=== PATIENT | female | born 1945 | race Caucasian/White ===

== ENCOUNTER → 2021-04-25 09:48 | Outpatient (CLI) | payer MEDICARE, BC, SELFPAY ==
--- NOTE | 2021-04-25 | DI.NM.S_ITS ---
PROCEDURE: NM RICHARD PERF SPECT R&S PHARM Rest and pharmacological stress myocardial perfusion SPECT with gated imaging and ejection fraction RADIOPHARMACEUTICAL: 12.1 mCi Tc-99m tetrafosmin IV at rest and 24.5 mCi Tc-99m tetrafosmin IV at peak effect of pharmacological stress. [id number] was performed. INDICATIONS: Personal history of pulmonary embolism SOB TECHNIQUE: Radiopharmaceutical was injected at peak stress test, and also at rest. SPECT images were obtained. SPECT myocardial perfusion images were displayed in short axis, horizontal long axis, and vertical long axis views. Gated images were reviewed using [employer] software. COMPARISON: None. CARDIAC STRESS: A pharmacologic stress test was performed under the supervision of an attending staff, using an infusion of regadenoson. Hemodynamic data: There is normal blood pressure and heart rate response to pharmacologic stress. Symptoms: The patient denied anginal chest pain. EKG: Baseline atrial fibrillation, LVH with secondary repolarization changes. Stress atrial fibrillation, no ST segment changes from baseline. FINDINGS: Raw data: There is good myocardial uptake of radiotracer. No significant motion artifacts. Gcmj-rm-dymnm ratio is 0.33 (normal is less than 0.38 for tetrafosmin tracer). Left ventricle function: Gated images demonstrate normal left ventricular wall thickening. No segmental wall motion abnormalities. No transient ischemic dilation; TID is 0.87 (normal less than 1.3). Left ventricle resting end diastolic volume is 59 mL. Left ventricle stress ejection fraction is >75% ; normal range is above 45%. Myocardial perfusion: Moderate size, mild intensity fixed anterior wall defect that is worse in the resting images but does not completely resolve in the prone images. IMPRESSION: Fixed anterior wall defect that is worse in the resting images but does not completely resolve on prone imaging. Given that wall motion is preserved in this area, the defect is most consistent with attenuation artifact. No obvious ischemia. Dictated by: Nisha Magallanes D.O. on 04/25/2021 at 16:32 Approved by: Nisha Magallanes M.D. on 04/25/2021 at 16:38
--- NOTE | 2021-04-25 | DI.US.S_ITS ---
PROCEDURE: US PERIPH VENOUS LOW EXTREM BI INDICATIONS: Short of breath; HX PE TECHNIQUE: Real-time imaging, as well as color and pulse Doppler interrogation, were performed of the deep veins of both legs from the inguinal ligament to the popliteal fossa. COMPARISON: None. FINDINGS: Right: The common femoral, femoral and popliteal veins are normally compressible, and free of intraluminal thrombus. Color and pulse Doppler demonstrate normal phasic intravascular flow. There is normal augmentation response to distal compression maneuver. Left: The common femoral, femoral and popliteal veins are normally compressible, and free of intraluminal thrombus. Color and pulse Doppler demonstrate normal phasic intravascular flow. There is normal augmentation response to distal compression maneuver. IMPRESSION: Negative for deep venous thrombosis. Dictated by: Misael Urban M.D. on 04/25/2021 at 10:24 Approved by: Misael Urban M.D. on 04/25/2021 at 10:25
== END ==
PROVIDERS: PCP Student in an Organized Health Care Education/Training Program; Referring Provider Internal Medicine Cardiovascular Disease; Visit Provider Internal Medicine Cardiovascular Disease
DX: I48.19 Other persistent atrial fibrillation (principal); R06.02 Shortness of breath; Z86.711 Personal history of pulmonary embolism
CPT/HCPCS: 78452; 93017; 93970; A9502; J2785

== ENCOUNTER 2021-06-11 18:17 | Inpatient (IN) | payer MEDICARE, BC, SELFPAY ==
[2021-06-11] VITALS (12 sets, daily range): BP systolic 73–140; BP diastolic 51–90; PULSE 86–142; RESP 16–35; TEMP 35–36; O2SAT 88–94
--- NOTE | 2021-06-11 18:47 | ED.CHESTPAIN ---
HPI - Chest Pain General Chief Complaint: Chest Pain Stated Complaint: chest pain,SOB,distended belly,extremity tremors, Time Seen by Provider: 06/11/21 18:41 Source: patient and family Mode of arrival: Wheelchair History of Present Illness HPI narrative: Patient is a 75-year-old female. History of atrial fibrillation. Is on anticoagulation. Is scheduled for an outpatient ablation after she has been on blood thinners for a month. Also has a history of pulmonary hypertension. Is here for the evaluation of chest discomfort and shortness of breath and a distended abdomen and tremors. Most of the HPI came from the patient's . It appears that most of the symptoms she presents with today been occurring/worsening over the past 24 hours. He also states she has not had much to eat or drink during this time. She is taking her medications. Patient states that she generally just does not feel well. Does have some abdominal pain otherwise cannot pinpoint any specific discomfort. There has been no recent travel. Related Data Home Medications Medication Instructions Recorded Confirmed Calcium Magnesium 06/12/21 ambrisentan 5 mg tablet 5 mg PO DAILY 06/12/21 06/12/21 atorvastatin 10 mg tablet 10 mg PO DAILY 06/12/21 06/12/21 baclofen 10 mg tablet 10 mg PO TID PRN 06/12/21 06/12/21 cyanocobalamin (vitamin B-12) 2,000 mcg PO DAILY 06/12/21 06/12/21 2,000 mcg tablet diclofenac sodium 1 % topical gel 2 g TOPICAL QID 06/12/21 06/12/21 duloxetine 20 mg capsule,delayed 20 mg PO DAILY 06/12/21 06/12/21 release esomeprazole magnesium 40 mg 40 mg PO DAILY 06/12/21 06/12/21 capsule,delayed release (Nexium) ferrous sulfate 325 mg (65 mg 325 mg PO Q OTHER DAY 06/12/21 06/12/21 iron) tablet (FeroSul) flecainide 50 mg tablet 50 mg PO BID 06/12/21 06/12/21 folic acid 1 mg tablet 5 mg PO DAILY 06/12/21 06/12/21 furosemide 20 mg tablet 20 mg PO DAILY 06/12/21 06/12/21 gabapentin 300 mg capsule 600 mg PO BID 06/12/21 06/12/21 hydrocodone 5 mg-acetaminophen 325 1 tab PO QID PRN 06/12/21 06/12/21 mg tablet hydroxychloroquine 200 mg tablet 300 mg PO DAILY 06/12/21 06/12/21 methotrexate sodium (PF) 25 mg/mL 0.8 mg SUBCUT Q7D 06/12/21 06/12/21 injection solution metoprolol succinate 25 mg 12.5 mg PO QPM 06/12/21 06/12/21 tablet,extended release 24 hr potassium chloride 10 mEq 20 meq PO BID 06/12/21 06/12/21 tablet,extended release rivaroxaban 20 mg tablet (Xarelto) 20 mg PO DAILY 06/12/21 06/12/21 tadalafil 20 mg tablet 20 mg PO DAILY 06/12/21 06/12/21 Allergies Allergy/AdvReac Type Severity Reaction Status Date / Time pseudoephedrine Allergy Verified 06/11/21 18:38 Review of Systems Review of Systems ROS Unobtainable: All systems reviewed & are unremarkable except as noted in HPI and below Constitutional Constitutional: Denies fever(s) Eyes Eyes: Denies change in vision ENT Ears, Nose, Mouth, and Throat: Denies vertigo, Denies dizziness and Denies sore throat Cardiovascular Cardiovascular: Reports as per HPI and Reports system reviewed and no additional complaints, except as documented Respiratory Respiratory: Reports as per HPI and Reports system reviewed and no additional complaints, except as documented Gastrointestinal Gastrointestinal: Reports as per HPI and Reports system reviewed and no additional complaints, except as documented Genitourinary Genitourinary: Denies dysuria Musculoskeletal Musculoskeletal: Reports system reviewed and no additional complaints, except as documented and Denies back pain Integumentary/Breasts Skin/Breast: Denies lesions and Denies rash Neurologic Neurologic: Denies vertigo, Denies dizziness and Reports tremor(s) Psychiatric Psychiatric: Reports system reviewed and no additional complaints, except as documented Endocrine Endocrine: Reports system reviewed and no additional complaints, except as documented Hematologic/Lymphatic On Anticoagulants: No Allergic/Immunologic Allergic/Immunologic: Reports system reviewed and no additional complaints, except as documented Patient History Medical History Atrial fibrillation Pulmonary hypertension Social History (Updated 06/12/21 @ 01:34 by Jordan Thomas DO) marital status: household members: spouse lives independently: Yes Exam Initial Vital Signs Initial Vital Signs: Vital Signs Temperature 96.8 F L 06/11/21 18:33 Pulse Rate 129 H 06/11/21 18:33 Respiratory Rate 34 H 06/11/21 18:33 Blood Pressure 140/90 06/11/21 18:33 Const General: ill appearing Limitations: mental status not altered [facility] Head: normal to inspection and normocephalic Eyes General: appearance normal, both eyes and all related structures Pupils: PERRL Neck Neck: normal visual inspection Chest Chest: normal inspection of the chest and No crepitus Resp Effort & Inspection: not labored, no respiratory distress and tachypneic Auscultation: clear to auscultation bilaterally Cardio Rate: tachycardic Rhythm: abnormal rhythm Pulses: radial pulses present bilaterally GI Inspection: distended Palpation: soft, No firm, No guarding and tender (Diffuse) Skin General: no rashes or lesions noted Neuro General: patient alert, patient awake, patient oriented x3 and moves all extremities Speech: speech normal Extrem General: capillary refill normal and No edema Psych Appearance: grossly normal and well kempt Scores GCS Deisy coma scale eye opening: Spontaneous [place] coma scale verbal response: Orientated [place] coma scale motor response: Obey commands Deisy coma scale total score: 15 Course Orders Ordered: ED Orders 06/11/21 18:49 XR chest 1V Stat EKG-12 Lead Stat 06/11/21 18:55 Blood Culture Stat 06/11/21 19:01 COVID19 - ADMIT (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 swab/PCR) Stat 06/11/21 19:12 Complete Blood Count AUTO DIFF Stat Comprehensive Metabolic Panel Stat Lactate (Lactic Acid) Stat Lipase Stat NT-proBNP (BNP-Adult 18+) Stat Partial Thromboplastin Time Stat Procalcitonin Stat Prothrombin Time INR Stat Troponin & CK Cardiac Panel Stat 06/11/21 19:58 CT angio abdomen pelvis Stat CT angio chest PE protocol Stat 06/11/21 22:31 US abdomen limited Stat 06/12/21 Acetaminophen Stat Ammonia (NH3) Stat Amylase Stat Hemoglobin A1C% w Est Avg Glu Stat Hepatitis Acute Panel Stat Lactate Dehydrogenase Stat Lipid Panel Stat Thyroid Stimulating Hormone Stat 06/12/21 00:07 Magnesium Stat 06/12/21 00:08 Urine Drug Screen, Rapid Stat 06/12/21 00:23 Respiratory Panel (Film Array) Stat 06/12/21 00:25 Arterial Blood Gas Stat 06/12/21 00:27 MRSA PCR Stat Sodium Chloride (Normal Saline 0.9%) 1,000 mls @ 150 mls/hr IV CONT ESA Last Admin: 06/11/21 23:22 Dose: 150 mls/hr Documented by: BRENDA Discontinued Medications Dextrose (Dextrose 50 % In Water 25 Gm/50 Ml Syringe) 25 gm IV NOW ONE Stop: 06/11/21 20:01 Last Admin: 06/11/21 19:40 Dose: 25 gm Documented by: DONALD Diltiazem HCl (Diltiazem 5 Mg/Ml Sdv) 10 mg IV NOW ONE Stop: 06/11/21 19:13 Last Admin: 06/11/21 19:20 Dose: 10 mg Documented by: DONALD Furosemide (Furosemide 100 Mg/10 Ml Vial) 60 mg IV NOW ONE Stop: 06/11/21 19:59 Last Admin: 06/11/21 20:05 Dose: 60 mg Documented by: DONALD Sodium Chloride (Normal Saline 0.9%) 1,000 mls @ 100 mls/hr IV CONT ESA Last Infusion: 06/11/21 20:44 Dose: 0 mls/hr Documented by: Admin: 06/11/21 19:20 Dose: 100 mls/hr Documented by: DONALD Sodium Chloride (Normal Saline 0.9%) 1,000 mls @ 500 mls/hr IV BOLUS ONE Stop: 06/11/21 21:38 Last Infusion: 06/11/21 21:06 Dose: 0 mls/hr Documented by: Admin: 06/11/21 20:05 Dose: 500 mls/hr Documented by: DONALD Ceftriaxone Sodium 1,000 mg/ (Sodium Chloride) 100 mls @ 200 mls/hr IV NOW ONE Stop: 06/11/21 19:57 Last Infusion: 06/11/21 20:32 Dose: 0 mls/hr Documented by: Admin: 06/11/21 20:04 Dose: 200 mls/hr Documented by: DONALD Vancomycin HCl (Vancomycin) 1,000 mg in 200 mls @ 200 mls/hr IV NOW ONE Stop: 06/11/21 20:55 Last Infusion: 06/11/21 21:30 Dose: 0 mls/hr Documented by: Admin: 06/11/21 20:04 Dose: 200 mls/hr Documented by: DONALD Vancomycin HCl 500 mg/ Sodium (Chloride) 100 mls @ 100 mls/hr IV NOW ONE Stop: 06/11/21 21:59 Last Infusion: 06/11/21 23:22 Dose: 0 mls/hr Documented by: Admin: 06/11/21 21:38 Dose: 100 mls/hr Documented by: BRENDA Sodium Chloride (Normal Saline 0.9%) 1,000 mls @ 500 mls/hr IV BOLUS ONE Stop: 06/11/21 23:18 Last Infusion: 06/11/21 23:23 Dose: 0 mls/hr Documented by: Admin: 06/11/21 21:28 Dose: 500 mls/hr Documented by: BRENDA Vancomycin HCl (Vancomycin) 1,000 mg in 200 mls @ 200 mls/hr IV NOW ONE Stop: 06/11/21 22:29 Last Admin: 06/11/21 21:37 Dose: Not Given Documented by: BRENDA Vital Signs Vital signs: Vital Signs - 8 hr 06/11/21 18:33 06/11/21 19:10 06/11/21 19:30 Temperature 96.8 F L Pulse Rate 129 H 142 H 95 H Respiratory Rate 34 H 33 H 35 H Blood Pressure 140/90 73/51 L Pulse Oximetry 88 L 06/11/21 19:35 06/11/21 20:00 06/11/21 20:07 Temperature Pulse Rate 91 H 98 H 96 H Respiratory Rate 31 H 18 19 Blood Pressure 121/64 89/65 L 86/58 L Pulse Oximetry 88 L 91 94 06/11/21 20:10 06/11/21 20:20 06/11/21 20:30 Temperature 95.0 F L Pulse Rate 99 H 93 H 90 Respiratory Rate 18 17 16 Blood Pressure 97/64 98/60 90/54 L Pulse Oximetry 91 92 94 06/11/21 21:52 06/11/21 22:56 06/11/21 23:43 Temperature Pulse Rate 95 H 86 91 H Respiratory Rate 21 21 19 Blood Pressure 88/68 L 109/68 98/59 L Pulse Oximetry 94 94 94 06/12/21 00:02 Temperature 95.5 F L Pulse Rate Respiratory Rate Blood Pressure Pulse Oximetry MDM - Chest Pain Lab Data Attestation: I reviewed the patient's lab results. Result diagrams: 06/11/21 19:12 06/11/21 19:12 Labs: Lab Results 06/11/21 06/11/21 06/11/21 Range/Units 19:01 19:12 19:12 WBC 8.9 (4.5-11.0) X10^3/uL RBC 3.81 L (4.0-5.2) X10^6/uL Hgb 10.0 L (12.0-16.0) g/dL Hct 32.2 L (36-46) % MCV 84.6 (80-100) fL MCH 26.2 (26-34) PG MCHC 30.9 (30-36) % RDW 21.6 H (11.6-14.8) % Plt Count 345 (150-400) X10^3/uL Neut % (Auto) 74.4 (50-75) % Lymph % (Auto) 18.7 L (25-40) % [place] % (Auto) 6.4 (3-14) % Eos % (Auto) 0.2 L (2-4) % Baso % (Auto) 0.3 (0-2) % Neut # (Auto) 6600 (1646-2685) /uL Lymph # (Auto) 1700 (4658-7315) /uL [place] # (Auto) 600 (0-900) /uL Eos # (Auto) 0 (0-450) /uL Baso # (Auto) 0 (0-100) /uL RBC Morphology See below Dimorphic RBCs Present Polychromasia 2+ H Hypochromasia 1+ H Poikilocytosis 1+ H Microcytosis 1+ H Macrocytosis 1+ H PT (10.1-12.7) SECONDS INR (0.9-1.3) APTT 46 H (26.4-36.2) SECONDS Sodium (137-145) mmol/L Potassium (3.4-5.1) mmol/L Chloride (98-107) mmol/L Carbon Dioxide (22-32) mmol/L BUN (7-17) mg/dL Creatinine (0.52-1.04) mg/dL Estimated GFR (>60) mL/min BUN/Creatinine Ratio (6-22) Glucose (80-110) mg/dL Hemoglobin A1c (4.0-6.0) % Lactate (0.7-2.1) mmol/L Calcium (8.4-10.2) mg/dL Magnesium (1.6-2.3) mg/dL Total Bilirubin (0.2-1.3) mg/dL AST (14-36) IU/L ALT (<35) IU/L Alkaline Phosphatase (38-126) U/L Ammonia (9-30) umol/L Lactate Dehydrogenase (313-618) U/L Total Creatine Kinase (30-135) U/L CK-MB (CK-2) CK-MB (CK-2) Rel Index Troponin I (0.01-0.034) ng/mL NT-Pro-B Natriuret Pep (<125) pg/mL Total Protein (6.3-8.2) g/dL Albumin (3.5-5.0) g/dL Globulin (1.7-4.1) g/dL Albumin/Globulin Ratio (1.0-2.8) Triglycerides (35-150) mg/dL Cholesterol (140-199) mg/dL LDL Cholesterol, Calc (<100) mg/dL HDL Cholesterol (40-60) mg/dL Amylase (30-110) U/L Lipase (23-300) U/L Procalcitonin (<0.5) ng/mL Acetaminophen (10-30) ug/mL SARS-CoV-2 (PCR) Negative (Negative) 06/11/21 06/11/21 06/11/21 Range/Units 19:12 19:12 19:12 WBC (4.5-11.0) X10^3/uL RBC (4.0-5.2) X10^6/uL Hgb (12.0-16.0) g/dL Hct (36-46) % MCV (80-100) fL MCH (26-34) PG MCHC (30-36) % RDW (11.6-14.8) % Plt Count (150-400) X10^3/uL Neut % (Auto) (50-75) % Lymph % (Auto) (25-40) % [place] % (Auto) (3-14) % Eos % (Auto) (2-4) % Baso % (Auto) (0-2) % Neut # (Auto) (9301-7929) /uL Lymph # (Auto) (3411-1359) /uL [place] # (Auto) (0-900) /uL Eos # (Auto) (0-450) /uL Baso # (Auto) (0-100) /uL RBC Morphology Dimorphic RBCs Polychromasia Hypochromasia Poikilocytosis Microcytosis Macrocytosis PT 35.4 H (10.1-12.7) SECONDS INR 3.1 H (0.9-1.3) APTT (26.4-36.2) SECONDS Sodium 139 (137-145) mmol/L Potassium 4.6 (3.4-5.1) mmol/L Chloride 98 (98-107) mmol/L Carbon Dioxide 9 L* (22-32) mmol/L BUN 20 H (7-17) mg/dL Creatinine 1.09 H (0.52-1.04) mg/dL Estimated GFR 49.1 L (>60) mL/min BUN/Creatinine Ratio 18.3 (6-22) Glucose < 20 L* (80-110) mg/dL Hemoglobin A1c (4.0-6.0) % Lactate 14.3 H* (0.7-2.1) mmol/L Calcium 10.2 (8.4-10.2) mg/dL Magnesium (1.6-2.3) mg/dL Total Bilirubin 1.5 H (0.2-1.3) mg/dL AST 132 H (14-36) IU/L ALT 52 H (<35) IU/L Alkaline Phosphatase 169 H (38-126) U/L Ammonia (9-30) umol/L Lactate Dehydrogenase (313-618) U/L Total Creatine Kinase (30-135) U/L CK-MB (CK-2) CK-MB (CK-2) Rel Index Troponin I (0.01-0.034) ng/mL NT-Pro-B Natriuret Pep 00183 H (<125) pg/mL Total Protein 8.1 (6.3-8.2) g/dL Albumin 4.7 (3.5-5.0) g/dL Globulin 3.4 (1.7-4.1) g/dL Albumin/Globulin Ratio 1.4 (1.0-2.8) Triglycerides (35-150) mg/dL Cholesterol (140-199) mg/dL LDL Cholesterol, Calc (<100) mg/dL HDL Cholesterol (40-60) mg/dL Amylase (30-110) U/L Lipase 44 (23-300) U/L Procalcitonin (<0.5) ng/mL Acetaminophen (10-30) ug/mL SARS-CoV-2 (PCR) (Negative) 06/11/21 06/11/21 06/11/21 Range/Units 19:12 19:12 19:12 WBC (4.5-11.0) X10^3/uL RBC (4.0-5.2) X10^6/uL Hgb (12.0-16.0) g/dL Hct (36-46) % MCV (80-100) fL MCH (26-34) PG MCHC (30-36) % RDW (11.6-14.8) % Plt Count (150-400) X10^3/uL Neut % (Auto) (50-75) % Lymph % (Auto) (25-40) % [place] % (Auto) (3-14) % Eos % (Auto) (2-4) % Baso % (Auto) (0-2) % Neut # (Auto) (0318-2618) /uL Lymph # (Auto) (6893-7832) /uL [place] # (Auto) (0-900) /uL Eos # (Auto) (0-450) /uL Baso # (Auto) (0-100) /uL RBC Morphology Dimorphic RBCs Polychromasia Hypochromasia Poikilocytosis Microcytosis Macrocytosis PT (10.1-12.7) SECONDS INR (0.9-1.3) APTT (26.4-36.2) SECONDS Sodium (137-145) mmol/L Potassium (3.4-5.1) mmol/L Chloride (98-107) mmol/L Carbon Dioxide (22-32) mmol/L BUN (7-17) mg/dL Creatinine (0.52-1.04) mg/dL Estimated GFR (>60) mL/min BUN/Creatinine Ratio (6-22) Glucose (80-110) mg/dL Hemoglobin A1c 4.9 (4.0-6.0) % Lactate (0.7-2.1) mmol/L Calcium (8.4-10.2) mg/dL Magnesium 2.1 (1.6-2.3) mg/dL Total Bilirubin (0.2-1.3) mg/dL AST (14-36) IU/L ALT (<35) IU/L Alkaline Phosphatase (38-126) U/L Ammonia (9-30) umol/L Lactate Dehydrogenase (313-618) U/L Total Creatine Kinase 98 (30-135) U/L CK-MB (CK-2) TNP CK-MB (CK-2) Rel Index TNP Troponin I 0.021 (0.01-0.034) ng/mL NT-Pro-B Natriuret Pep (<125) pg/mL Total Protein (6.3-8.2) g/dL Albumin (3.5-5.0) g/dL Globulin (1.7-4.1) g/dL Albumin/Globulin Ratio (1.0-2.8) Triglycerides (35-150) mg/dL Cholesterol (140-199) mg/dL LDL Cholesterol, Calc (<100) mg/dL HDL Cholesterol (40-60) mg/dL Amylase (30-110) U/L Lipase (23-300) U/L Procalcitonin 0.31 (<0.5) ng/mL Acetaminophen (10-30) ug/mL SARS-CoV-2 (PCR) (Negative) 06/11/21 06/11/21 06/12/21 Range/Units 19:12 21:47 00:53 WBC (4.5-11.0) X10^3/uL RBC (4.0-5.2) X10^6/uL Hgb (12.0-16.0) g/dL Hct (36-46) % MCV (80-100) fL MCH (26-34) PG MCHC (30-36) % RDW (11.6-14.8) % Plt Count (150-400) X10^3/uL Neut % (Auto) (50-75) % Lymph % (Auto) (25-40) % [place] % (Auto) (3-14) % Eos % (Auto) (2-4) % Baso % (Auto) (0-2) % Neut # (Auto) (0730-3874) /uL Lymph # (Auto) (0858-8948) /uL [place] # (Auto) (0-900) /uL Eos # (Auto) (0-450) /uL Baso # (Auto) (0-100) /uL RBC Morphology Dimorphic RBCs Polychromasia Hypochromasia Poikilocytosis Microcytosis Macrocytosis PT (10.1-12.7) SECONDS INR (0.9-1.3) APTT (26.4-36.2) SECONDS Sodium (137-145) mmol/L Potassium (3.4-5.1) mmol/L Chloride (98-107) mmol/L Carbon Dioxide (22-32) mmol/L BUN (7-17) mg/dL Creatinine (0.52-1.04) mg/dL Estimated GFR (>60) mL/min BUN/Creatinine Ratio (6-22) Glucose (80-110) mg/dL Hemoglobin A1c (4.0-6.0) % Lactate 11.7 H* (0.7-2.1) mmol/L Calcium (8.4-10.2) mg/dL Magnesium (1.6-2.3) mg/dL Total Bilirubin (0.2-1.3) mg/dL AST (14-36) IU/L ALT (<35) IU/L Alkaline Phosphatase (38-126) U/L Ammonia < 9 L (9-30) umol/L Lactate Dehydrogenase (313-618) U/L Total Creatine Kinase (30-135) U/L CK-MB (CK-2) CK-MB (CK-2) Rel Index Troponin I (0.01-0.034) ng/mL NT-Pro-B Natriuret Pep (<125) pg/mL Total Protein (6.3-8.2) g/dL Albumin (3.5-5.0) g/dL Globulin (1.7-4.1) g/dL Albumin/Globulin Ratio (1.0-2.8) Triglycerides (35-150) mg/dL Cholesterol (140-199) mg/dL LDL Cholesterol, Calc (<100) mg/dL HDL Cholesterol (40-60) mg/dL Amylase (30-110) U/L Lipase (23-300) U/L Procalcitonin (<0.5) ng/mL Acetaminophen < 10 L (10-30) ug/mL SARS-CoV-2 (PCR) (Negative) 06/12/21 Range/Units 00:53 WBC (4.5-11.0) X10^3/uL RBC (4.0-5.2) X10^6/uL Hgb (12.0-16.0) g/dL Hct (36-46) % MCV (80-100) fL MCH (26-34) PG MCHC (30-36) % RDW (11.6-14.8) % Plt Count (150-400) X10^3/uL Neut % (Auto) (50-75) % Lymph % (Auto) (25-40) % [place] % (Auto) (3-14) % Eos % (Auto) (2-4) % Baso % (Auto) (0-2) % Neut # (Auto) (4042-8397) /uL Lymph # (Auto) (0989-7701) /uL [place] # (Auto) (0-900) /uL Eos # (Auto) (0-450) /uL Baso # (Auto) (0-100) /uL RBC Morphology Dimorphic RBCs Polychromasia Hypochromasia Poikilocytosis Microcytosis Macrocytosis PT (10.1-12.7) SECONDS INR (0.9-1.3) APTT (26.4-36.2) SECONDS Sodium (137-145) mmol/L Potassium (3.4-5.1) mmol/L Chloride (98-107) mmol/L Carbon Dioxide (22-32) mmol/L BUN (7-17) mg/dL Creatinine (0.52-1.04) mg/dL Estimated GFR (>60) mL/min BUN/Creatinine Ratio (6-22) Glucose (80-110) mg/dL Hemoglobin A1c (4.0-6.0) % Lactate (0.7-2.1) mmol/L Calcium (8.4-10.2) mg/dL Magnesium (1.6-2.3) mg/dL Total Bilirubin (0.2-1.3) mg/dL AST (14-36) IU/L ALT (<35) IU/L Alkaline Phosphatase (38-126) U/L Ammonia (9-30) umol/L Lactate Dehydrogenase 3018 H (313-618) U/L Total Creatine Kinase (30-135) U/L CK-MB (CK-2) CK-MB (CK-2) Rel Index Troponin I (0.01-0.034) ng/mL NT-Pro-B Natriuret Pep (<125) pg/mL Total Protein (6.3-8.2) g/dL Albumin (3.5-5.0) g/dL Globulin (1.7-4.1) g/dL Albumin/Globulin Ratio (1.0-2.8) Triglycerides 35 (35-150) mg/dL Cholesterol 101 L (140-199) mg/dL LDL Cholesterol, Calc 44 (<100) mg/dL HDL Cholesterol 50 (40-60) mg/dL Amylase 90 (30-110) U/L Lipase (23-300) U/L Procalcitonin (<0.5) ng/mL Acetaminophen (10-30) ug/mL SARS-CoV-2 (PCR) (Negative) Point of Care Testing Glucose POC 141 Urine Dip Bedside Urine Glucose Negative Bedside Urine Bilirubin - Negative Bedside Urine Ketone - Negative Urine Specific [place] 1.025 Bedside Urine Occult Blood +/- Bedside Urine pH 6.0 Bedside Urine Protein + 30 Bedside Urine Urobilinogen - Negative Bedside Urine Nitrite - Negative Bedside Urine Leukocytes - Negative Esterase Imaging Data Chest x-ray: Radiologist's Impression: [address] [address] XRay Report Signed Patient: Glenda Villegas MR#: [id number] : 1945 Acct:[id number] Age/Sex: 75 / F Date of Service: 06/11/21 Loc: ED Accession Number: [id number] ?? Procedure: XR chest 1V Ordering Provider: Jordan Thomas D.O. PROCEDURE:? XR CHEST 1V ? INDICATIONS:? CHEST PAIN SHORTNESS OF BREATH EXTREMITY TREMORS ? TECHNIQUE:? One view of the chest was acquired.? ? COMPARISON:? [facility], CR, XR CHEST 1 VIEW, 04/04/2021, 8:13. ? FINDINGS:? ? Surgical changes and devices:? None.? ? Lungs and pleura:? Increased pulmonary vascularity consistent with pulmonary edema.? Small pleural effusions are present bilaterally.? Bibasilar opacities are most likely atelectasis.? No pneumothorax.? ? Mediastinum:? Mediastinal contours appear normal.? Heart size is mildly increased.? ? Bones and chest wall:? No suspicious bony lesions.? Overlying soft tissues appear unremarkable.? ? IMPRESSION:? Congestive heart failure. ? Secondary to congestive heart failure Dictated by: Ruth Tyson M.D. on 06/11/2021 at 19:05 ? ? Approved by: Ruth Tyson M.D. on 06/11/2021 at 19:05?? CT scan - abdomen/pelvis: Radiologist's Impression: [address] [address] [address] Scan Report Signed Patient: Glenda Villegas MR#: [id number] : 1945 Acct:[id number] Age/Sex: 75 / F Date of Service: 06/11/21 Loc: ED Accession Number: [id number] ?? Procedure: CT angio abdomen pelvis Ordering Provider: Jordan Thomas D.O. PROCEDURE:? CT ANGIO ABDOMEN PELVIS ? INDICATIONS:? eval for ischemic bowel ? TECHNIQUE:? After the administration of intravenous contrast, 2.5 mm sections acquired from the diaphragm to the iliac crests.? 10 mm maximum intensity projection (MIP) coronal and sagittal reformats were then performed.? For radiation dose reduction, the following was used:? automated exposure control.? ? COMPARISON:? [facility], CT, CT ANGIO CHEST PE PROTOCOL, 06/11/2021, 20:12. ? FINDINGS: ? Image quality:? Excellent.? ? Extravascular tissues:? There are small pleural effusions bilaterally, right greater than left.? Bibasilar consolidation or atelectasis.? Esophagus is distended and filled with fluid, likely secondary to gastroesophageal reflux.? Small hiatal hernia. ? Liver is normal in size and and demonstrates nodular contour suggesting cirrhosis.? Gallbladder is contracted.? There is a small amount of pericholecystic fluid.? Biliary system is non dilated.? Pancreas enhances normally.? Spleen is normal in size and enhancement.? Mild adrenal nodularity bilaterally.? Kidneys are normal in size and enhancement, without hydronephrosis.? ? There is diffuse small bowel wall thickening.? No CT findings to suggest small bowel obstruction.? Moderate amount of stool in colon.? Appendix is normal. ? There is a small amount of free fluid.? No free air.? ? No retroperitoneal or mesenteric adenopathy.? No ventral hernias.? ? No suspicious bony abnormalities.? No vertebral body compression fractures.? Scoliosis and degenerative changes in thoracic and lumbar spine. ? Diffuse body wall edema consistent with anasarca. ? Abdominal aorta:? Abdominal aorta is normal in caliber.? Mild distal abdominal aortic calcification. ? Mesenteric arteries:? The celiac trunk, superior mesenteric artery, and inferior mesenteric artery are patent without high-grade stenosis.? ? Renal arteries:? Renal arteries are patent without significant stenosis.? ? IMPRESSION:? ? 1. Mild atherosclerosis of abdominal aorta. 2. Patent celiac trunk, superior and inferior mesenteric arteries without significant stenosis.? 3. Diffuse small bowel wall thickening, which may be secondary to infectious etiology or inflammatory bowel disease.? Ischemia is felt less likely.? Recommend clinical correlation. 4. A small amount of free fluid is present. 5. Normal appendix. 6. Nodular contour of liver suggesting cirrhosis. 7. Contracted gallbladder.? If there is clinical suspicion for acute cholecystitis, gallbladder ultrasound or HIDA scan may be considered. 8.? Please see CT chest angiogram report for findings in thorax. ? Dictated by: Ruth Tyson M.D. on 06/11/2021 at 22:10 ? ? Approved by: Ruth Tyson M.D. on 06/11/2021 at 22:22?? CT scan - chest: Radiologist's Impression: [place] [address] CT Scan Report Signed Patient: Glenda Villegas MR#: [id number] : 1945 Acct:[id number] Age/Sex: 75 / F Date of Service: 06/11/21 Loc: ED Accession Number: [id number] ?? Procedure: CT angio chest PE protocol Ordering Provider: Jordan Thomas D.O. PROCEDURE:? CT ANGIO CHEST PE PROTOCOL ? INDICATIONS:? Chest pain, shortness of breath, tachycardia ? TECHNIQUE:? After the administration of intravenous contrast, 2 mm thick sections acquired from the pulmonary apices to the posterior costophrenic angles.? 3-dimensional maximum intensity projection (MIP) coronal and sagittal reformats were then acquired through the thorax.? For radiation dose reduction, the following was used:? automated exposure control, adjustment of mA and/or kV according to patient size.? ? COMPARISON:? [facility], CT, CT ANGIO CHEST PE, 12/16/2020, 12:09.? [facility], CR, XR CHEST 1V, 06/11/2021, 18:51. ? FINDINGS:? Image quality:? Excellent.? ? Pulmonary arteries:? Pulmonary outflow tract is enlarged measuring 4 cm in diameter.? There are no intraluminal filling defects to suggest central pulmonary embolism.? ? Lungs and pleura:? Diffuse interstitial prominence with septal thickening suspicious for pulmonary edema.? Poei-gn-uhitkwry emphysema.? There are small pleural effusions bilaterally, right greater than left.? Bibasilar consolidations or atelectasis No pneumothorax.? Central and peripheral airways are patent.? ? Mediastinum:? Heart size is moderately increased, with.? out pericardial effusion.? Severe coronary artery calcification.? There is a 1.3 x 1.7 cm precarinal lymph node and a 1.4 cm subcarinal lymph node.? Enlarged right hilar lymph node measures 1.7 cm. Thoracic aorta is normal in caliber and enhancement.? The esophagus is distended and fluid filled with an air-fluid level.? Small hiatal hernia.? ? Bones and chest wall:? No suspicious bony lesions.? Ribs and thoracic spine appear intact throughout.? Thyroid gland is normal.? No axillary or supraclavicular adenopathy.? ? Abdomen:? A 1.4 cm para-aortic lymph node is seen in the upper abdomen.? There is contrast reflux into the hepatic vein, compatible with right heart strain.? ? IMPRESSION:? ? 1. No evidence for acute pulmonary embolism. 2. Enlarged pulmonary outflow tract, consistent with pulmonary hypertension.? This finding could be secondary to chronic PE.? Contrast reflux into the hepatic vein, compatible with right heart strain from pulmonary hypertension. 3. Moderate cardiomegaly.? There is diffuse interstitial prominence with bilateral septal thickening.? Small pleural effusions are present.? The findings are suggestive of congestive heart failure. 4. Bibasilar consolidations or atelectasis.? Cannot rule out superimposed lower lobe aspiration or pneumonia. 5. Fluid-filled distended distal esophagus likely secondary to severe gastroesophageal reflux. 6. There is mediastinal and right hilar lymphadenopathy.? This finding is nonspecific and may be secondary to infectious, inflammatory or neoplastic etiology.? Recommend clinical correlation and follow up.? 7. Severe coronary artery calcification. ? ? ? Dictated by: Ruth Tyson M.D. on 06/11/2021 at 21:25 ? ? Approved by: Ruth Tyson M.D. on 06/11/2021 at 21:37?? US - abdomen: Radiologist's Impression: [place] [address] Ultrasound Report Signed Patient: Glenda Villegas MR#: [id number] : 1945 Acct:[id number] Age/Sex: 75 / F Date of Service: 06/11/21 Loc: ED Accession Number: [id number] ?? Procedure: US abdomen limited Ordering Provider: Jordan Thomas D.O. PROCEDURE: US ABDOMEN LIMITED ? INDICATIONS:? RUQ PAIN ? TECHNIQUE:? Real-time focused scanning was performed of the abdomen, with image documentation.? ? COMPARISON:? [facility], CT, CT ANGIO ABDOMEN PELVIS, 06/11/2021, 20:12. ? FINDINGS:? Nodular hepatic contour with coarsened hepatic echogenicity, findings which are consistent with cirrhosis and were present on a comparison CT of the abdomen.? No focal hepatic mass.? There is intrahepatic biliary ductal dilatation which was present on comparison CT is well.? The common duct is normal in caliber measuring approximately 6 mm at the julia hepatis.? Normally distended gallbladder without wall thickening or pericholecystic fluid.? No sludge or gallstone demonstrated.? The parts identification technician reports a negative sonographic Hankins's sign.? Visualized portions of the pancreas and right kidney are normal. ? IMPRESSION:? ? Mild intrahepatic biliary ductal dilatation which is not significantly changed from a CT examination performed 06/11/2021.? This is of uncertain clinical significance. ? Findings of cirrhosis with small volume perihepatic ascites. ? No findings of cholelithiasis or cholecystitis. ? ? Dictated by: Alf Valverde M.D. on 06/11/2021 at 23:19 ? ? Approved by: lAf Valverde M.D. on 06/11/2021 at 23:21 ECG Data Attestation: I personally reviewed and interpreted this ECG as follows: Prior ECG tracings: not available for review Interpretation: Atrial fibrillation Ventricular rate 123 Right bundle branch block QRS 130 milliseconds QTC [address] T wave changes MDM Narrative Medical decision making narrative: Upon arrival patient was ill appearing. Was hypertensive. Did have tachycardia and was in AFib. Has not been on anticoagulation for the past month. Was given 1 dose of Cardizem which improved her heart rate however did cause her to decrease her blood pressure. Patient was also hypoxic. This improved with oxygen by nasal cannula. Chest x-ray and elevated BNP concerning for fluid overload. Was given Lasix. Patient also hypoglycemic. This is surprising given the fact that upon arrival she was able to follow commands and answer questions. She was given 1 amp of D50 in afterwards blood sugar remained greater than 100. Patient was also hypothermic. Was placed under a warming blanket. Did have a distended abdomen and diffuse abdominal tenderness. CT scan of her chest shows no signs of pulmonary embolism. Does show findings consistent with her known pulmonary hypertension. CT of her abdomen does not show any signs of ischemic bowel. No other acute surgical abnormality however there was some concern about a potential gallbladder etiology. Right upper quadrant ultrasound was obtained which did not show any acute abnormality despite the elevation in her LFTs. Patient did have a significantly elevated lactate. Antibiotics were administered for broad coverage although I did not have a specific source of an infection. After the correction of her temperature and her blood sugar she seem to improve. Patient's blood pressure was systolic in 80s to 90s over diastolic 50s to 60s. Her mean arterial pressures maintained in the mid 60s. Patient's states that her normal blood pressures are 90s over 60s. She was fluid resuscitated. Blood pressure improved afterwards. Discussed the case with SHARMILA Bray the [facility] provider. She discussed the case with tele ICU. They recommended I contacted General surgery to discuss the case. I did discuss the case with Dr. Crawford on-call with General surgery who stated that there was no emergent surgical condition. This specific discussion was about ischemic bowel. Dr. Crawford stated that the patient was not a surgical candidate at baseline. I did discuss code status with the patient's . He stated that several years ago they did make advanced directives but he is unsure as to what they said. The patient will be treated is full code. I did discuss the need for admission with the patient's . He expressed understanding agreement. Critical Care Time Critical Care Time Critical Care Time: Yes Total Critical Care Time: 45 Attestation: The high probability of a clinically significant, sudden or life threatening deterioration of the cardiovascular, respiratory, endocrine, GI system(s) required my full and direct attention, intervention and personal management. The aggregate critical care time was 45 minutes. This time is in addition to time spent performing reported procedures but includes the following: [x] Data Review and interpretation [x] Patient assessment and monitoring of vital signs [x] Documentation [x] Medication orders and management Discharge Plan Departure Patient Disposition: Admitted As Inpatient Clinical Impression: Hypoglycemia, Hypothermia, Atrial fibrillation with RVR, Hypoxia, Acidosis, lactic Admit Date/Time: 06/12/21 00:59 Admit Provider: Laure Bray
--- NOTE | 2021-06-11 18:49 | DI.RAD.S_ITS ---
PROCEDURE: XR CHEST 1V INDICATIONS: CHEST PAIN SHORTNESS OF BREATH EXTREMITY TREMORS TECHNIQUE: One view of the chest was acquired. COMPARISON: [facility], CR, XR CHEST 1 VIEW, 04/04/2021, 8:13. FINDINGS: Surgical changes and devices: None. Lungs and pleura: Increased pulmonary vascularity consistent with pulmonary edema. Small pleural effusions are present bilaterally. Bibasilar opacities are most likely atelectasis. No pneumothorax. Mediastinum: Mediastinal contours appear normal. Heart size is mildly increased. Bones and chest wall: No suspicious bony lesions. Overlying soft tissues appear unremarkable. IMPRESSION: Congestive heart failure. Secondary to congestive heart failure Dictated by: Ruth Tyson M.D. on 06/11/2021 at 19:05 Approved by: Ruth Tyson M.D. on 06/11/2021 at 19:05
--- NOTE | 2021-06-11 19:17 | PC.NURSE ---
Pt has Raynauds and it is very difficult to have a consistent O2 sat
[2021-06-11] MEDS: dilTIAZem 5 MG/ML SDV 10 MG IV (19:20)
[2021-06-11] MEDS: SODIUM CHLORIDE 0.9% 1,000 ML 100 ML IV (19:20)
[2021-06-11 19:31] LABS: PTT Partial Thromboplastin Tim 46 SECONDS (26.4-36.2)
[2021-06-11 19:37] LABS: Albumin 4.7 g/dL (3.5-5.0); Albumin Globulin Ratio 1.4 (1.0-2.8); Alkaline Phosphatase 169 U/L (38-126); Aspartate Aminotransferase 132 IU/L (14-36); BUN Creatinine Ratio 18.3 (6-22); Bilirubin Total 1.5 mg/dL (0.2-1.3); Blood Urea Nitrogen 20 mg/dL (7-17); Calcium 10.2 mg/dL (8.4-10.2); Chloride 98 mmol/L (98-107); Creatine Kinase 98 U/L (30-135); Estimated Glomerular Filt Rate 49.1 mL/min (>60); Globulin 3.4 g/dL (1.7-4.1); HEMOLYSIS < 15 (0-50); Lipase 44 U/L (23-300); Potassium 4.6 mmol/L (3.4-5.1); Sodium 139 mmol/L (137-145); Total Protein 8.1 g/dL (6.3-8.2)
[2021-06-11] MEDS: DEXTROSE 50 % IN WATER 25 GM/50 ML SYRINGE IV (19:40)
[2021-06-11 19:43] LABS: Alanine Aminotransferase 52 IU/L (<35)
[2021-06-11 19:46] LABS: NT-proBNP (BNP-Adult 18+) 22200 pg/mL (<125)
[2021-06-11 19:49] LABS: Troponin I 0.021 ng/mL (0.01-0.034)
[2021-06-11 19:52] LABS: Lactate (Lactic Acid) 14.3 mmol/L (0.7-2.1)
[2021-06-11 19:53] LABS: Carbon Dioxide 9 mmol/L (22-32); Glucose < 20 mg/dL (80-110)
[2021-06-11 19:54] LABS: Procalcitonin 0.31 ng/mL (<0.5)
[2021-06-11 19:57] LABS: Add Manual Diff / Slide Review NO; Basophils Absolute Auto 0 /uL (0-100); Basophils Percent Auto 0.3 % (0-2); Eosinophils Absolute Auto 0 /uL (0-450); Eosinophils Percent Auto 0.2 % (2-4); Hematocrit 32.2 % (36-46); Lymphocytes Absolute Auto 1700 /uL (1100-4500); Lymphocytes Percent Auto 18.7 % (25-40); Mean Corpuscular HGB Conc 30.9 % (30-36); Mean Corpuscular Hemoglobin 26.2 PG (26-34); Mean Corpuscular Volume 84.6 fL (80-100); Monocytes Absolute Auto 600 /uL (0-900); Monocytes Percent Auto 6.4 % (3-14); Neutrophils Absolute Auto 6600 /uL (1500-7000); Neutrophils Percent Auto 74.4 % (50-75); Platelet Count 345 X10^3/uL (150-400); Red Blood Cell Count 3.81 X10^6/uL (4.0-5.2); Red Cell Distribution Width 21.6 % (11.6-14.8); White Blood Cell Count 8.9 X10^3/uL (4.5-11.0)
[2021-06-11 19:58] LABS: Poikilocytosis 1+; Polychromasia 2+
--- NOTE | 2021-06-11 19:58 | DI.CT.S_ITS ---
PROCEDURE: CT ANGIO CHEST PE PROTOCOL INDICATIONS: Chest pain, shortness of breath, tachycardia TECHNIQUE: After the administration of intravenous contrast, 2 mm thick sections acquired from the pulmonary apices to the posterior costophrenic angles. 3-dimensional maximum intensity projection (MIP) coronal and sagittal reformats were then acquired through the thorax. For radiation dose reduction, the following was used: automated exposure control, adjustment of mA and/or kV according to patient size. COMPARISON: , CT, CT ANGIO CHEST PE, 12/16/2020, 12:09. [facility], CR, XR CHEST 1V, 06/11/2021, 18:51. FINDINGS: Image quality: Excellent. Pulmonary arteries: Pulmonary outflow tract is enlarged measuring 4 cm in diameter. There are no intraluminal filling defects to suggest central pulmonary embolism. Lungs and pleura: Diffuse interstitial prominence with septal thickening suspicious for pulmonary edema. [id number] emphysema. There are small pleural effusions bilaterally, right greater than left. Bibasilar consolidations or atelectasis No pneumothorax. Central and peripheral airways are patent. Mediastinum: Heart size is moderately increased, with. out pericardial effusion. Severe coronary artery calcification. There is a 1.3 x 1.7 cm precarinal lymph node and a 1.4 cm subcarinal lymph node. Enlarged right hilar lymph node measures 1.7 cm. Thoracic aorta is normal in caliber and enhancement. The esophagus is distended and fluid filled with an air-fluid level. Small hiatal hernia. Bones and chest wall: No suspicious bony lesions. Ribs and thoracic spine appear intact throughout. Thyroid gland is normal. No axillary or supraclavicular adenopathy. Abdomen: A 1.4 cm para-aortic lymph node is seen in the upper abdomen. There is contrast reflux into the hepatic vein, compatible with right heart strain. IMPRESSION: 1. No evidence for acute pulmonary embolism. 2. Enlarged pulmonary outflow tract, consistent with pulmonary hypertension. This finding could be secondary to chronic PE. Contrast reflux into the hepatic vein, compatible with right heart strain from pulmonary hypertension. 3. Moderate cardiomegaly. There is diffuse interstitial prominence with bilateral septal thickening. Small pleural effusions are present. The findings are suggestive of congestive heart failure. 4. Bibasilar consolidations or atelectasis. Cannot rule out superimposed lower lobe aspiration or pneumonia. 5. Fluid-filled distended distal esophagus likely secondary to severe gastroesophageal reflux. 6. There is mediastinal and right hilar lymphadenopathy. This finding is nonspecific and may be secondary to infectious, inflammatory or neoplastic etiology. Recommend clinical correlation and follow up. 7. Severe coronary artery calcification. Dictated by: Ruth Tyson M.D. on 06/11/2021 at 21:25 Approved by: Ruth Tyson M.D. on 06/11/2021 at 21:37
--- NOTE | 2021-06-11 19:58 | DI.CT.S_ITS ---
PROCEDURE: CT ANGIO ABDOMEN PELVIS INDICATIONS: eval for ischemic bowel TECHNIQUE: After the administration of intravenous contrast, 2.5 mm sections acquired from the diaphragm to the iliac crests. 10 mm maximum intensity projection (MIP) coronal and sagittal reformats were then performed. For radiation dose reduction, the following was used: automated exposure control. COMPARISON: [facility], CT, CT ANGIO CHEST PE PROTOCOL, 06/11/2021, 20:12. FINDINGS: Image quality: Excellent. Extravascular tissues: There are small pleural effusions bilaterally, right greater than left. Bibasilar consolidation or atelectasis. Esophagus is distended and filled with fluid, likely secondary to gastroesophageal reflux. Small hiatal hernia. Liver is normal in size and and demonstrates nodular contour suggesting cirrhosis. Gallbladder is contracted. There is a small amount of pericholecystic fluid. Biliary system is non dilated. Pancreas enhances normally. Spleen is normal in size and enhancement. Mild adrenal nodularity bilaterally. Kidneys are normal in size and enhancement, without hydronephrosis. There is diffuse small bowel wall thickening. No CT findings to suggest small bowel obstruction. Moderate amount of stool in colon. Appendix is normal. There is a small amount of free fluid. No free air. No retroperitoneal or mesenteric adenopathy. No ventral hernias. No suspicious bony abnormalities. No vertebral body compression fractures. Scoliosis and degenerative changes in thoracic and lumbar spine. Diffuse body wall edema consistent with anasarca. Abdominal aorta: Abdominal aorta is normal in caliber. Mild distal abdominal aortic calcification. Mesenteric arteries: The celiac trunk, superior mesenteric artery, and inferior mesenteric artery are patent without high-grade stenosis. Renal arteries: Renal arteries are patent without significant stenosis. IMPRESSION: 1. Mild atherosclerosis of abdominal aorta. 2. Patent celiac trunk, superior and inferior mesenteric arteries without significant stenosis. 3. Diffuse small bowel wall thickening, which may be secondary to infectious etiology or inflammatory bowel disease. Ischemia is felt less likely. Recommend clinical correlation. 4. A small amount of free fluid is present. 5. Normal appendix. 6. Nodular contour of liver suggesting cirrhosis. 7. Contracted gallbladder. If there is clinical suspicion for acute cholecystitis, gallbladder ultrasound or HIDA scan may be considered. 8. Please see CT chest angiogram report for findings in thorax. Dictated by: Ruth Tyson M.D. on 06/11/2021 at 22:10 Approved by: Ruth Tyson M.D. on 06/11/2021 at 22:22
[2021-06-11 19:59] LABS: INR 3.1 (0.9-1.3); Prothrombin Time 35.4 SECONDS (10.1-12.7)
[2021-06-11 20:01] LABS: Dimorphic RBC Present; Hypochromasia 1+; Macrocytosis 1+; Microcytosis 1+
[2021-06-11] MEDS: VANCOMYCIN 1,000 MG/200 ML PIGGYBACK 200 MG IV (20:04)
[2021-06-11] MEDS: cefTRIAXone 1,000 MG in SODIUM CHLORIDE 0.9% 100 ML 200 ML IV (20:04)
[2021-06-11] MEDS: SODIUM CHLORIDE 0.9% 1,000 ML 500 ML IV ×2 (20:05→21:28)
[2021-06-11] MEDS: FUROSEMIDE 100 MG/10 ML VIAL 60 MG IV (20:05)
[2021-06-11 20:10] LABS: COVID19 - ADMIT (NP swab/PCR) Negative (Negative)
--- NOTE | 2021-06-11 20:44 | PC.NURSE ---
Bear Wendy placed on pt
[2021-06-11 21:20] LABS: Reflexed Lactate in 2 Hours Y
[2021-06-11] MEDS: VANCOMYCIN 500 MG in SODIUM CHLORIDE 0.9% 100 ML IV (21:38)
[2021-06-11 22:22] LABS: Lactate 2HR (Lactic Acid Rflx) 11.7 mmol/L (0.7-2.1)
--- NOTE | 2021-06-11 22:31 | DI.US.S_ITS ---
PROCEDURE: US ABDOMEN LIMITED INDICATIONS: RUQ PAIN TECHNIQUE: Real-time focused scanning was performed of the abdomen, with image documentation. COMPARISON: [facility], CT, CT ANGIO ABDOMEN PELVIS, 06/11/2021, 20:12. FINDINGS: Nodular hepatic contour with coarsened hepatic echogenicity, findings which are consistent with cirrhosis and were present on a comparison CT of the abdomen. No focal hepatic mass. There is intrahepatic biliary ductal dilatation which was present on comparison CT is well. The common duct is normal in caliber measuring approximately 6 mm at the julia hepatis. Normally distended gallbladder without wall thickening or pericholecystic fluid. No sludge or gallstone demonstrated. The salon customer experience specialist reports a negative sonographic Hankins's sign. Visualized portions of the pancreas and right kidney are normal. IMPRESSION: Mild intrahepatic biliary ductal dilatation which is not significantly changed from a CT examination performed 06/11/2021. This is of uncertain clinical significance. Findings of cirrhosis with small volume perihepatic ascites. No findings of cholelithiasis or cholecystitis. Dictated by: Alf Valverde M.D. on 06/11/2021 at 23:19 Approved by: Alf Valverde M.D. on 06/11/2021 at 23:21
[2021-06-11] MEDS: SODIUM CHLORIDE 0.9% 1,000 ML 150 ML IV (23:22)
[2021-06-12] VITALS (60 sets, daily range): BP systolic 82–118; BP diastolic 52–78; PULSE 87–128; RESP 12–25; TEMP 35.3–37.5; O2SAT 76–100; BMI 21.2
[2021-06-12 00:20] LABS: Magnesium 2.1 mg/dL (1.6-2.3)
[2021-06-12 00:51] LABS: Acetaminophen < 10 ug/mL (10-30)
[2021-06-12 01:15] LABS: Ammonia (NH3) < 9 umol/L (9-30); Amylase 90 U/L (30-110); Cholesterol 101 mg/dL (140-199); HDL Cholesterol 50 mg/dL (40-60); LDL Cholesterol Calculated 44 mg/dL (<100); Triglycerides 35 mg/dL (35-150)
[2021-06-12 01:16] LABS: Hemoglobin A1C% w Est Avg Glu 4.9 % (4.0-6.0)
[2021-06-12 01:19] LABS: Fractionated Inspired Oxygen 32; HCO3 ABG 15 mmol/L (22-26); Oxygen Saturation ABG 96 % (95-100); PO2 ABG 79 mmHg (80-100); TCO2 ABG 16 mmol/L (21-31)
[2021-06-12 01:23] LABS: Thyroid Stimulating Hormone 7.59 uIU/mL (0.47-4.68)
[2021-06-12 01:23] LABS: Lactate Dehydrogenase 3018 U/L (313-618)
[2021-06-12 01:26] LABS: Adenovirus Not Detected (Not Detect); Coronavirus 229E Not Detected (Not Detect); Coronavirus HKU1 Not Detected (Not Detect); Coronavirus NL 63 Not Detected (Not Detect); Coronavirus OC43 Not Detected (Not Detect); SARS- CoV-2 Not Detected (Not Detecte)
[2021-06-12 01:27] LABS: Human Metapneumovirus Not Detected (Not Detect); Human Rhinovirus/Enterovirus Not Detected (Not Detect); Influenza A Not Detected (Not Detect); Influenza B Not Detected (Not Detect); Parainfluenza Virus 1 Not Detected (Not Detect); Parainfluenza Virus 2 Not Detected (Not Detect); Parainfluenza Virus 3 Not Detected (Not Detect); Parainfluenza Virus 4 Not Detected (Not Detect)
[2021-06-12 01:28] LABS: B. parapertussis Not Detected (Not Detecte); Bordetella pertussis Not Detected (Not Detecte); Chlamydophila pneumoniae Not Detected (Not Detect); Mycoplasma pneumoniae Not Detected (Not Detect); Respiratory Syncytial Virus Not Detected (Not Detect)
--- NOTE | 2021-06-12 01:58 | P.HP_ITS ---
History of Present Illness History of Present Illness Date Patient Seen: 06/12/21 Time Patient Seen: 01:58 Chief complaint: chest pain,SOB,distended belly,extremity tremors, Narrative: ?Glenda Villegas is a 75-year-old female with a history of atrial fibrillation with RVR with chronic Xeralto anticoagulation, pulmonary hypertension, GERD, and depression was brought into the ED this evening by her spouse for chest discomfort, SOB, distended abdomen and tremors.? Is scheduled for an outpatient ablation after she has been on blood thinners for a month.? Patient developed scleroderma or on pulmonary hypertension during about of pulmonary emboli related to an ankle fracture she then developed atrial fibrillation and has been cardioverted on previous occasions. Patient had a prolapsed rectal surgery approximately 1 month ago Most of the HPI came from the patient's , as patient was initially confused in the ED, though both patient and spouse were reported to be poor historians.? It appears that most of the symptoms she presents with today been occurring/worsening over the past 24 hours.? He also states she has not had much to eat or drink over the past 24 hrs.? She is taking her medications.? Patient complained that she generally just does not feel well.? She does have some abdominal pain otherwise cannot pinpoint any specific discomfort.? There has been no recent travel. Concerned as to the quality of HPI and ROS due to poor historians. Patient denies cough, URI symptoms, fever, body aches, chills, nausea, vomiting, diarrhea, constipation, hematemesis, urinary symptoms, hematuria, melena, specific weakness, changes in vision, falls, rashes, recent illness injury or trauma. Patient initially presented to the ED confused with a temp of 95?, BP 121/64, HR 91, RR tachypneic 31, O2 saturation 88% on room air. Patient is not on oxygen at home. Patient's labs HGB 10, HCT 32.2. Patient's BUN 20 HC03 9 creatinine 1.09, glucose 12, GFR 49.1, total bilirubin 1.5, AST 132, ALT 52, alk-phos 169, patient's initial lactate 14, troponin 0.021, BNP 22, 200, procalcitonin normal 0.31. In ED patient received fluid bolus of a 1000 cc, D5W 1 amp, a dose of vancomycin and Rocephin, 60 Lasix, and 10 mg of Cardizem. Patient's repeat lactate was 11.7. Tele communications strategist Dr. Jauregui was consulted regarding evaluation of the case and appropriateness for admit. He recommended that the patient should not be admitted without an immediate General surgery consult and evaluation. Dr. Thomas in the ED consulted Dr. Crawford general surgeon. Dr. Crawford advised that based on the patient's global presentation that the patient was not a candidate for surgical intervention at that time based on complex comorbidities, and that the patient to be admitted to the hospitalist service, and that she would consult if requested. Upon admit to the floor the patient appeared alert & orientated x3, much improved, reports shortness of breath improved but remains on 3 L nasal cannula. Patient denies Chest pain, cough, URI symptoms, fever, body aches, chills, nausea, diarrhea, hematemesis, urinary symptoms, hematuria, melena, specific weakness, changes in vision, falls, rashes, recent illness injury or trauma. The patient reports that she vomited twice yesterday, and suffers from chronic constipation, had previous incontinence of stool but that has since resolved and last BM was yesterday. Admit temp 97.7?, BP is 98/59, HR 91, RR still slightly tachypneic 19, O2 saturation 94% on 3 L nasal cannula. Lactate repeated on admit 5.6, though once on the floor the patient continued to be slightly hypotensive with a map ranging from 60-65 the patient was placed in the ICU. Patient reports that she drinks approximately 3 glasses of wine a day and has done so for approximately 30 years but did stop 1 month ago prior to a to rectal prolapse surgery that she had at [facility]. 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 Patient also notes that she has a history of bilateral pulmonary embolism. Was able to obtain some patient records from [facility] last night which I personally reviewed. Will request further records today. Patient admitted for acute respiratory failure with hypoxia and hypocapnia, lactic acidosis, hypoglycemia, STEPHENIE, encephalopathy, elevated amniotranferases, with CHF exacerbation. Patient History Medical History (Updated 06/12/21 @ 03:34 by FRANCISCO J Rodrigez-) Atrial fibrillation Chronic anticoagulation CREST (calcinosis, Raynaud's phenomenon, esophageal dysfunction, sclerodactyly, telangiectasia) GERD (gastroesophageal reflux disease) History of cardioversion History of cyst of breast History of pulmonary embolism Pulmonary edema Pulmonary hypertension Pulmonary hypertension Surgical History (Updated 06/12/21 @ 03:34 by Laure Bray [facility]) History of oophorectomy History of rectal surgery Family & Social History Family History (Updated 06/12/21 @ 03:36 [facility] Mother Diabetes mellitus Sister COPD (chronic obstructive pulmonary disease) Ulcerative colitis Social History: household members spouse lives independently Yes Tobacco & Substance use: Patient has never smoked or vaped Patient reports drinking approximately 3 glasses of wine and night times 30 years stopped 6 months ago Patient denies any recreational substance use Meds Home Medications and Allergies Home Medications Medication Instructions Recorded Confirmed Type Calcium Magnesium 06/12/21 History ambrisentan 5 mg tablet 5 mg PO DAILY 06/12/21 06/12/21 History atorvastatin 10 mg tablet 10 mg PO DAILY 06/12/21 06/12/21 History baclofen 10 mg tablet 10 mg PO TID PRN 06/12/21 06/12/21 History cyanocobalamin (vitamin B-12) 2,000 mcg PO DAILY 06/12/21 06/12/21 History 2,000 mcg tablet diclofenac sodium 1 % topical gel 2 g TOPICAL QID 06/12/21 06/12/21 History duloxetine 20 mg capsule,delayed 20 mg PO DAILY 06/12/21 06/12/21 History release esomeprazole magnesium 40 mg 40 mg PO DAILY 06/12/21 06/12/21 History capsule,delayed release (Nexium) ferrous sulfate 325 mg (65 mg 325 mg PO Q OTHER DAY 06/12/21 06/12/21 History iron) tablet (FeroSul) flecainide 50 mg tablet 50 mg PO BID 06/12/21 06/12/21 History folic acid 1 mg tablet 5 mg PO DAILY 06/12/21 06/12/21 History furosemide 20 mg tablet 20 mg PO DAILY 06/12/21 06/12/21 History gabapentin 300 mg capsule 600 mg PO BID 06/12/21 06/12/21 History hydrocodone 5 mg-acetaminophen 325 1 tab PO QID PRN 06/12/21 06/12/21 History mg tablet hydroxychloroquine 200 mg tablet 300 mg PO DAILY 06/12/21 06/12/21 History methotrexate sodium (PF) 25 mg/mL 0.8 mg SUBCUT Q7D 06/12/21 06/12/21 History injection solution metoprolol succinate 25 mg 12.5 mg PO QPM 06/12/21 06/12/21 History tablet,extended release 24 hr potassium chloride 10 mEq 20 meq PO BID 06/12/21 06/12/21 History tablet,extended release rivaroxaban 20 mg tablet (Xarelto) 20 mg PO DAILY 06/12/21 06/12/21 History tadalafil 20 mg tablet 20 mg PO DAILY 06/12/21 06/12/21 History Allergies Allergy/AdvReac Type Severity Reaction Status Date / Time pseudoephedrine Allergy Verified 06/11/21 18:38 Review of Systems Review of Systems Narrative: All 12 point systems reviewed with the patient and are negative except otherwise documented. Exam Vital Signs (past 8 hours): - 06/11/21 18:33 06/11/21 19:10 06/11/21 19:30 Temperature 96.8 F L Pulse Rate 129 H 142 H 95 H Respiratory Rate 34 H 33 H 35 H Blood Pressure 140/90 73/51 L Pulse Oximetry 88 L 06/11/21 19:35 06/11/21 20:00 06/11/21 20:07 Temperature Pulse Rate 91 H 98 H 96 H Respiratory Rate 31 H 18 19 Blood Pressure 121/64 89/65 L 86/58 L Pulse Oximetry 88 L 91 94 06/11/21 20:10 06/11/21 20:20 06/11/21 20:30 Temperature 95.0 F L Pulse Rate 99 H 93 H 90 Respiratory Rate 18 17 16 Blood Pressure 97/64 98/60 90/54 L Pulse Oximetry 91 92 94 06/11/21 21:52 06/11/21 22:56 06/11/21 23:43 Temperature Pulse Rate 95 H 86 91 H Respiratory Rate 21 21 19 Blood Pressure 88/68 L 109/68 98/59 L Pulse Oximetry 94 94 94 06/12/21 00:02 06/12/21 01:32 Temperature 95.5 F L 96.6 F L Pulse Rate 88 Respiratory Rate 14 Blood Pressure 91/54 L Pulse Oximetry 93 Oxygen Delivery Method Room Air Oxygen Flow Rate 3 Narrative Exam Narrative: General: Patient is a well-developed, thin, small framed [place] female in no distress at this time. HEENT: Normocephalic, atraumatic, extraocular muscles intact, oral pharynx is clear and mucous membranes are moist. Neck is supple and symmetric, trachea is midline, no adenopathy, no thyroid enlargement, nontender, no masses palpated. Positive left JVD Chest: no nasal flaring, retractions, or tachypneic labored breathing Lungs: Auscultation of all lung fisher are clear without adventitious sounds, wheezes, rhonchi, or rales. Cardio: Irregular rate and rhythm without murmur, rubs, or gallops, no carotid bruit, no cardiac pulsations present. Abdomen: Soft nontender, mild distention, negative for organomegaly, or masses. Bowel sounds are present in all 4 quadrants without guarding or rebound, no CVA tenderness. Musculoskeletal: Muscle strength and tone are equal within normal limits, no deformity, crepitus, effusions, cyanosis, clubbing or edema present. Full range of motion intact radial and pedal pulses are normal. Skin: Warm dry and intact without rashes, ulcerations or petechiae. Neuro: Alert and orientated x3, strength is +5/5 in all extremities, sensation to touch intact, no gross deficits noted of cranial nerves. Psych: Patient has a well-kept appearance, appropriate affect, mental status attitude thought context and judgment are appropriate for age. Objective Labs Result Diagrams: 06/11/21 19:12 06/11/21 19:12 Labs: Laboratory Results - last 24 hr 06/11/21 06/11/21 06/11/21 19:01 19:01 19:12 WBC 8.9 RBC 3.81 L Hgb 10.0 L Hct 32.2 L MCV 84.6 MCH 26.2 MCHC 30.9 RDW 21.6 H Plt Count 345 Neut % (Auto) 74.4 Lymph % (Auto) 18.7 L [place] % (Auto) 6.4 Eos % (Auto) 0.2 L Baso % (Auto) 0.3 Neut # (Auto) 6600 Lymph # (Auto) 1700 [place] # (Auto) 600 Eos # (Auto) 0 Baso # (Auto) 0 RBC Morphology See below Dimorphic RBCs Present Polychromasia 2+ H Hypochromasia 1+ H Poikilocytosis 1+ H Microcytosis 1+ H Macrocytosis 1+ H PT INR APTT ABG pH ABG pCO2 ABG pO2 ABG HCO3 ABG Total CO2 ABG O2 Saturation ABG Base Excess FiO2 Sodium Potassium Chloride Carbon Dioxide BUN Creatinine Estimated GFR BUN/Creatinine Ratio Glucose Hemoglobin A1c Lactate Calcium Magnesium Total Bilirubin AST ALT Alkaline Phosphatase Ammonia Lactate Dehydrogenase Total Creatine Kinase CK-MB (CK-2) CK-MB (CK-2) Rel Index Troponin I NT-Pro-B Natriuret Pep Total Protein Albumin Globulin Albumin/Globulin Ratio Triglycerides Cholesterol LDL Cholesterol, Calc HDL Cholesterol Amylase Lipase Procalcitonin TSH Acetaminophen Chlamy pneumoniae PCR Not detected Adenovirus (PCR) Not detected B. pertussis DNA (PCR) Not detected B.parapertussis DNA PCR Not detected Coronavirus OC43 (PCR) Not detected Coronavirus HKU1 (PCR) Not detected Coronavirus 229E (PCR) Not detected SARS-CoV-2 (PCR) Negative Not detected Coronavirus NL63 (PCR) Not detected Human Metapneumovir PCR Not detected Influenza Type A (PCR) Not detected Influenza Type B (PCR) Not detected M. pneumoniae (PCR) Not detected Parainfluenza 1 (PCR) Not detected Parainfluenza 2 (PCR) Not detected Parainfluenza 3 (PCR) Not detected Parainfluenza 4 (PCR) Not detected RSV (PCR) Not detected Entero/Rhino (PCR) Not detected 06/11/21 06/11/21 06/11/21 19:12 19:12 19:12 WBC RBC Hgb Hct MCV MCH MCHC RDW Plt Count Neut % (Auto) Lymph % (Auto) [place] % (Auto) Eos % (Auto) Baso % (Auto) Neut # (Auto) Lymph # (Auto) [place] # (Auto) Eos # (Auto) Baso # (Auto) RBC Morphology Dimorphic RBCs Polychromasia Hypochromasia Poikilocytosis Microcytosis Macrocytosis PT INR APTT 46 H ABG pH ABG pCO2 ABG pO2 ABG HCO3 ABG Total CO2 ABG O2 Saturation ABG Base Excess FiO2 Sodium 139 Potassium 4.6 Chloride 98 Carbon Dioxide 9 L* BUN 20 H Creatinine 1.09 H Estimated GFR 49.1 L BUN/Creatinine Ratio 18.3 Glucose < 20 L* Hemoglobin A1c Lactate 14.3 H* Calcium 10.2 Magnesium Total Bilirubin 1.5 H AST 132 H ALT 52 H Alkaline Phosphatase 169 H Ammonia Lactate Dehydrogenase Total Creatine Kinase CK-MB (CK-2) CK-MB (CK-2) Rel Index Troponin I NT-Pro-B Natriuret Pep 48307 H Total Protein 8.1 Albumin 4.7 Globulin 3.4 Albumin/Globulin Ratio 1.4 Triglycerides Cholesterol LDL Cholesterol, Calc HDL Cholesterol Amylase Lipase 44 Procalcitonin TSH Acetaminophen Chlamy pneumoniae PCR Adenovirus (PCR) B. pertussis DNA (PCR) B.parapertussis DNA PCR Coronavirus OC43 (PCR) Coronavirus HKU1 (PCR) Coronavirus 229E (PCR) SARS-CoV-2 (PCR) Coronavirus NL63 (PCR) Human Metapneumovir PCR Influenza Type A (PCR) Influenza Type B (PCR) M. pneumoniae (PCR) Parainfluenza 1 (PCR) Parainfluenza 2 (PCR) Parainfluenza 3 (PCR) Parainfluenza 4 (PCR) RSV (PCR) Entero/Rhino (PCR) 06/11/21 06/11/21 06/11/21 19:12 19:12 19:12 WBC RBC Hgb Hct MCV MCH MCHC RDW Plt Count Neut % (Auto) Lymph % (Auto) [place] % (Auto) Eos % (Auto) Baso % (Auto) Neut # (Auto) Lymph # (Auto) [place] # (Auto) Eos # (Auto) Baso # (Auto) RBC Morphology Dimorphic RBCs Polychromasia Hypochromasia Poikilocytosis Microcytosis Macrocytosis PT 35.4 H INR 3.1 H APTT ABG pH ABG pCO2 ABG pO2 ABG HCO3 ABG Total CO2 ABG O2 Saturation ABG Base Excess FiO2 Sodium Potassium Chloride Carbon Dioxide BUN Creatinine Estimated GFR BUN/Creatinine Ratio Glucose Hemoglobin A1c Lactate Calcium Magnesium 2.1 Total Bilirubin AST ALT Alkaline Phosphatase Ammonia Lactate Dehydrogenase Total Creatine Kinase 98 CK-MB (CK-2) TNP CK-MB (CK-2) Rel Index TNP Troponin I 0.021 NT-Pro-B Natriuret Pep Total Protein Albumin Globulin Albumin/Globulin Ratio Triglycerides Cholesterol LDL Cholesterol, Calc HDL Cholesterol Amylase Lipase Procalcitonin 0.31 TSH Acetaminophen Chlamy pneumoniae PCR Adenovirus (PCR) B. pertussis DNA (PCR) B.parapertussis DNA PCR Coronavirus OC43 (PCR) Coronavirus HKU1 (PCR) Coronavirus 229E (PCR) SARS-CoV-2 (PCR) Coronavirus NL63 (PCR) Human Metapneumovir PCR Influenza Type A (PCR) Influenza Type B (PCR) M. pneumoniae (PCR) Parainfluenza 1 (PCR) Parainfluenza 2 (PCR) Parainfluenza 3 (PCR) Parainfluenza 4 (PCR) RSV (PCR) Entero/Rhino (PCR) 06/11/21 06/11/21 06/11/21 19:12 19:12 19:12 WBC RBC Hgb Hct MCV MCH MCHC RDW Plt Count Neut % (Auto) Lymph % (Auto) [place] % (Auto) Eos % (Auto) Baso % (Auto) Neut # (Auto) Lymph # (Auto) [place] # (Auto) Eos # (Auto) Baso # (Auto) RBC Morphology Dimorphic RBCs Polychromasia Hypochromasia Poikilocytosis Microcytosis Macrocytosis PT INR APTT ABG pH ABG pCO2 ABG pO2 ABG HCO3 ABG Total CO2 ABG O2 Saturation ABG Base Excess FiO2 Sodium Potassium Chloride Carbon Dioxide BUN Creatinine Estimated GFR BUN/Creatinine Ratio Glucose Hemoglobin A1c 4.9 Lactate Calcium Magnesium Total Bilirubin AST ALT Alkaline Phosphatase Ammonia Lactate Dehydrogenase Total Creatine Kinase CK-MB (CK-2) CK-MB (CK-2) Rel Index Troponin I NT-Pro-B Natriuret Pep Total Protein Albumin Globulin Albumin/Globulin Ratio Triglycerides Cholesterol LDL Cholesterol, Calc HDL Cholesterol Amylase Lipase Procalcitonin TSH 7.59 H Acetaminophen < 10 L Chlamy pneumoniae PCR Adenovirus (PCR) B. pertussis DNA (PCR) B.parapertussis DNA PCR Coronavirus OC43 (PCR) Coronavirus HKU1 (PCR) Coronavirus 229E (PCR) SARS-CoV-2 (PCR) Coronavirus NL63 (PCR) Human Metapneumovir PCR Influenza Type A (PCR) Influenza Type B (PCR) M. pneumoniae (PCR) Parainfluenza 1 (PCR) Parainfluenza 2 (PCR) Parainfluenza 3 (PCR) Parainfluenza 4 (PCR) RSV (PCR) Entero/Rhino (PCR) 06/11/21 06/12/21 06/12/21 21:47 00:53 00:53 WBC RBC Hgb Hct MCV MCH MCHC RDW Plt Count Neut % (Auto) Lymph % (Auto) [place] % (Auto) Eos % (Auto) Baso % (Auto) Neut # (Auto) Lymph # (Auto) [place] # (Auto) Eos # (Auto) Baso # (Auto) RBC Morphology Dimorphic RBCs Polychromasia Hypochromasia Poikilocytosis Microcytosis Macrocytosis PT INR APTT ABG pH ABG pCO2 ABG pO2 ABG HCO3 ABG Total CO2 ABG O2 Saturation ABG Base Excess FiO2 Sodium Potassium Chloride Carbon Dioxide BUN Creatinine Estimated GFR BUN/Creatinine Ratio Glucose Hemoglobin A1c Lactate 11.7 H* Calcium Magnesium Total Bilirubin AST ALT Alkaline Phosphatase Ammonia < 9 L Lactate Dehydrogenase 3018 H Total Creatine Kinase CK-MB (CK-2) CK-MB (CK-2) Rel Index Troponin I NT-Pro-B Natriuret Pep Total Protein Albumin Globulin Albumin/Globulin Ratio Triglycerides 35 Cholesterol 101 L LDL Cholesterol, Calc 44 HDL Cholesterol 50 Amylase 90 Lipase Procalcitonin TSH Acetaminophen Chlamy pneumoniae PCR Adenovirus (PCR) B. pertussis DNA (PCR) B.parapertussis DNA PCR Coronavirus OC43 (PCR) Coronavirus HKU1 (PCR) Coronavirus 229E (PCR) SARS-CoV-2 (PCR) Coronavirus NL63 (PCR) Human Metapneumovir PCR Influenza Type A (PCR) Influenza Type B (PCR) M. pneumoniae (PCR) Parainfluenza 1 (PCR) Parainfluenza 2 (PCR) Parainfluenza 3 (PCR) Parainfluenza 4 (PCR) RSV (PCR) Entero/Rhino (PCR) 06/12/21 01:03 WBC RBC Hgb Hct MCV MCH MCHC RDW Plt Count Neut % (Auto) Lymph % (Auto) [place] % (Auto) Eos % (Auto) Baso % (Auto) Neut # (Auto) Lymph # (Auto) [place] # (Auto) Eos # (Auto) Baso # (Auto) RBC Morphology Dimorphic RBCs Polychromasia Hypochromasia Poikilocytosis Microcytosis Macrocytosis PT INR APTT ABG pH 7.40 ABG pCO2 25.0 L ABG pO2 79 L ABG HCO3 15 L ABG Total CO2 16 L ABG O2 Saturation 96 ABG Base Excess -9.0 L FiO2 32 Sodium Potassium Chloride Carbon Dioxide BUN Creatinine Estimated GFR BUN/Creatinine Ratio Glucose Hemoglobin A1c Lactate Calcium Magnesium Total Bilirubin AST ALT Alkaline Phosphatase Ammonia Lactate Dehydrogenase Total Creatine Kinase CK-MB (CK-2) CK-MB (CK-2) Rel Index Troponin I NT-Pro-B Natriuret Pep Total Protein Albumin Globulin Albumin/Globulin Ratio Triglycerides Cholesterol LDL Cholesterol, Calc HDL Cholesterol Amylase Lipase Procalcitonin TSH Acetaminophen Chlamy pneumoniae PCR Adenovirus (PCR) B. pertussis DNA (PCR) B.parapertussis DNA PCR Coronavirus OC43 (PCR) Coronavirus HKU1 (PCR) Coronavirus 229E (PCR) SARS-CoV-2 (PCR) Coronavirus NL63 (PCR) Human Metapneumovir PCR Influenza Type A (PCR) Influenza Type B (PCR) M. pneumoniae (PCR) Parainfluenza 1 (PCR) Parainfluenza 2 (PCR) Parainfluenza 3 (PCR) Parainfluenza 4 (PCR) RSV (PCR) Entero/Rhino (PCR) Assessment & Plan Assessment & Plan narrative: ?Glenda Villegas is a 75-year-old female with a history of atrial fibrillation with RVR with chronic Xeralto anticoagulation, pulmonary hypertension, GERD, and depression was brought into the ED this evening by her spouse for chest discomfort, SOB, distended abdomen and tremors.? Is scheduled for an outpatient ablation after she has been on blood thinners for a month.? Patient developed scleroderma or on pulmonary hypertension during about of pulmonary emboli related to an ankle fracture she then developed atrial fibrillation and has been cardioverted on previous occasions. Most of the HPI came from the patient's , as patient was initially confused in the ED, though both patient and spouse were reported to be poor historians. Patient admitted for acute respiratory failure with hypoxia and hypocapnia, encephalopat hy, lactic acidosis, hypoglycemia, STEPHENIE, and elevated amniotranferases, with CHF exacerbation. 1. Acute respiratory failure with hypoxia and hypocapnia, with encephalopathy, resulting in STEPHENIE, acute, present on admission -patient presented with a O2 saturation of 88% on room air, currently is on 3 L nasal cannula satting at 94%. Patient is not on home O2. -patient initially presented with encephalopathy which has resolved. -patient's initial creatinine 1.09, unsure if this is a change from baseline, but likely due to acute respiratory failure. -cause of respiratory failure, encephalopathy, STEPHENIE unknown etiology-suspect infectious source alcoholic hepatitis, hepatopulmonary syndrome, ischemic bowel? -monitor & rule out patient for complications like variceal hemorrhage, ascites, spontaneous bacterial peritonitis, hepatocellular carcinoma, hepatic renal syndrome, or hepatopulmonary syndrome, septic shock, subdural hematoma, renal failure associated with possible underlying liver diseases, extrahepatic cholestasis versus intrahepatic cholestasis: GGT is elevated in cholestasis. -consult telemedicine doctor abdominal, Dr. Crawford general surgery was consulted in the ED. -additional labs ordered TSH, ABGs, acetaminophen level, hepatitis panel, tox screen, respiratory panel, magnesium, A1c, GGT, phosphorus. Will trend lactic acid -patient was given a dose of vancomycin and Rocephin in the ED. will continue vancomycin per pharmacy and start patient on Zosyn for intra-abdominal coverage. -respiratory consult. 2. Lactic acidosis, acute, present on admission -initial lactate 14, patient was bolused with a 1000 cc of fluid vanco and Rocephin repeat lactate was 11.7, was 5.6 on admit, will continue to trend lactate. -patient was then continued on normal saline at 150 cc/hour. 3. CHF exacerbation in the setting of pulmonary hypertension, atrial fibrillation with RVR, and hyperlipidemia, acute on chronic, present on admission -patient was given 10 mg Cardizem in the ED. initial BNP 22,200. -patient was also given 60 mg of IV Lasix, stop normal saline fluid hydration when the patient presented to the floor. -patient was hypertensive when she came to the floor will hold patient's metoprolol, tadalafil, and ambrisentan at this time. Holding Lipitor -will continue patient's flecainide. -patient demonstrates no physical signs edema with the exception of positive left JVD. Will continue to monitor patient for fluid overload. -Holding Lasix due to hypotension -will repeat BNP 4. Elevated amniotranferases, acute, present on admission -initial liver panel AST 132, ALT 52, alk-phos 169, total bili 1.5 -will trend liver panel, ordered additional GGT, and amylase -suspect that patient's alcohol intake history coupled with the hydroxychloroquine 300 mg QD x 1 month may be contributing to hepatocellular, hepatopulmonary syndrome. Patient had a negative abdominal exam upon admit to the floor, but mild distension was observed. 5. Hypoglycemia, acute, present on admission -patient's initial glucose 12 in the ED, patient was given 1 amp of D5W upon admit was 112. -etiology unknown patient has no history of diabetes. Code status:Full Surrogate decision maker: Dale Villegas Spouse COVID PCR:Negative COVID vaccination: Unknown DVT/VTE prophylaxis:pt on Xeralto, SCD's only. Disposition: Patient admitted to the ICU expected length of stay greater than 2 midnights due to the complexity and acuity from complicating comorbidities. I have utilized all available immediate resources to obtain, update, or review the patient's current medications. I confirmed that the patient's advanced care plan is present, Code status is documented and/or surrogate decision maker is listed in the patient's medical record. Time Spent With Patient Critical Care time: I spent a total of [] minutes of critical care time on this patient's care today; this time is exclusive of procedural time.
[2021-06-12 02:06] LABS: Phosphorous 5.1 mg/dL (2.8-4.1)
[2021-06-12 02:22] LABS: Lactate (Lactic Acid) 5.6 mmol/L (0.7-2.1)
[2021-06-12 03:31] LABS: UR Morphine/Opiate cutoff 300 Negative (Negative); Ur Creatinine NEGATIVE (Normal); Ur Specific Gravity 1.015 (Normal); Urine Amphetamines Negative (Negative); Urine Barbiturates Negative (Negative); Urine Benzodiazepines Negative (Negative); Urine Cocaine Negative (Negative); Urine MDMA Negative (Negative); Urine Methadone Negative (Negative); Urine Methamphetamines Negative (Negative); Urine Oxycodone Negative (Negative); Urine Phencyclidine Negative (Negative); Urine Tetrahydrocannabinol Negative (Negative); Urine Tricyclic Antidepressant Negative (Negative); Urine pH 5 (Normal)
--- NOTE | 2021-06-12 03:39 | DI.RAD.S_ITS ---
PROCEDURE: XR CHEST 1V INDICATIONS: central line placement TECHNIQUE: One view of the chest was acquired. COMPARISON: [facility], , XR CHEST 1V, 06/11/2021, 18:51. FINDINGS: Surgical changes and devices: Right-sided catheter is present with distal tip projecting to the left of midline of the midthoracic spine. Lungs and pleura: Bibasilar opacities are present. There is blunting of the costophrenic angles. Mediastinum: Mediastinal contours appear normal. Heart size is enlarged. Bones and chest wall: No suspicious bony lesions. Overlying soft tissues appear unremarkable. IMPRESSION: 1. Central line placement as above. It is noted distal tip overlies the left side of the midthoracic spine. While this is suspected to be projectional secondary to patient rotation, if concern persists for possible arterial placement, recommend repeat view with patient in non rotated position for further evaluation. 2. Bilateral pulmonary opacities suggestive of pneumonia with superimposed minimal effusions. Dictated by: Velma Shaw M.D. on 06/12/2021 at 9:31 Approved by: Velma Shaw M.D. on 06/12/2021 at 9:32
--- NOTE | 2021-06-12 03:44 | P.TELICUCN_ITS ---
History of Present Illness Consult details Chief complaint: chest pain,SOB,distended belly,extremity tremors, :: This patient was seen via real time interactive two-way audiovisual telecommunication. Narrative: 75-year-old female with H/o of atrial fibrillation on Xarelto, pulmonary hypertension on tadafil, presented with abdominal pain & distension, shortness of breath and tremors.? ? Septic shock, sepsis source? Intra-abdominal, ? ischemic bowel Pul edema with small bl pl effusion Acute CHF exacerbation Anasarca Alcoholic hepatitis HAGMA/ sever lactic acidosis Hypoglycemia ? STAT general surgery consult Switch AB to Vanc & Zosyn, f/u Blood cx, UA & Cx Albumin bolus, start IV Wilber, Dc fluid maintenance Trend Lactate Q6H, BMP Q12 hr, LFT daily ?2 D Echo Strict NPO IV heparin for anticoagulation for Afib/ hold Xarelto IV PPI PFSH Medical History (Updated 06/12/21 @ 03:34 by FRANCISCO J Rodrigez-JOSH) Atrial fibrillation Chronic anticoagulation CREST (calcinosis, Raynaud's phenomenon, esophageal dysfunction, sclerodactyly, telangiectasia) GERD (gastroesophageal reflux disease) History of cardioversion History of cyst of breast History of pulmonary embolism Pulmonary edema Pulmonary hypertension Pulmonary hypertension Surgical History (Updated 06/12/21 @ 03:34 by FRANCISCO J Rodrigez-JOSH) History of oophorectomy History of rectal surgery Family History (Updated 06/12/21 @ 03:36 by FRANCISCO J Rodrigez-JOSH) Mother Diabetes mellitus Sister COPD (chronic obstructive pulmonary disease) Ulcerative colitis Social History (Updated 06/12/21 @ 01:34 by Jordan Thomas DO) marital status: household members: spouse lives independently: Yes Smoking Status: Never smoker alcohol intake: former Current Medications Current Medications Medications: Home Medications Calcium Magnesium 06/12/21 [History] ambrisentan 5 mg tablet 5 mg PO DAILY 06/12/21 [History Confirmed 06/12/21] atorvastatin 10 mg tablet 10 mg PO DAILY 06/12/21 [History Confirmed 06/12/21] baclofen 10 mg tablet 10 mg PO TID PRN 06/12/21 [History Confirmed 06/12/21] cyanocobalamin (vitamin B-12) 2,000 mcg tablet 2,000 mcg PO DAILY 06/12/21 [History Confirmed 06/12/21] diclofenac sodium 1 % topical gel 2 g TOPICAL QID 06/12/21 [History Confirmed 06/12/21] duloxetine 20 mg capsule,delayed release 20 mg PO DAILY 06/12/21 [History Confirmed 06/12/21] esomeprazole magnesium 40 mg capsule,delayed release (Nexium) 40 mg PO DAILY 06/12/21 [History Confirmed 06/12/21] ferrous sulfate 325 mg (65 mg iron) tablet (FeroSul) 325 mg PO Q OTHER DAY 06/12/21 [History Confirmed 06/12/21] flecainide 50 mg tablet 50 mg PO BID 06/12/21 [History Confirmed 06/12/21] folic acid 1 mg tablet 5 mg PO DAILY 06/12/21 [History Confirmed 06/12/21] furosemide 20 mg tablet 20 mg PO DAILY 06/12/21 [History Confirmed 06/12/21] gabapentin 300 mg capsule 600 mg PO BID 06/12/21 [History Confirmed 06/12/21] hydrocodone 5 mg-acetaminophen 325 mg tablet 1 tab PO QID PRN 06/12/21 [History Confirmed 06/12/21] hydroxychloroquine 200 mg tablet 300 mg PO DAILY 06/12/21 [History Confirmed 06/12/21] methotrexate sodium (PF) 25 mg/mL injection solution 0.8 mg SUBCUT Q7D 06/12/21 [History Confirmed 06/12/21] metoprolol succinate 25 mg tablet,extended release 24 hr 12.5 mg PO QPM 06/12/21 [History Confirmed 06/12/21] potassium chloride 10 mEq tablet,extended release 20 meq PO BID 06/12/21 [History Confirmed 06/12/21] rivaroxaban 20 mg tablet (Xarelto) 20 mg PO DAILY 06/12/21 [History Confirmed 06/12/21] tadalafil 20 mg tablet 20 mg PO DAILY 06/12/21 [History Confirmed 06/12/21] Exam Vital Signs (past 8 hours): - 06/11/21 20:00 06/11/21 20:07 06/11/21 20:10 Temperature Pulse Rate 98 H 96 H 99 H Respiratory Rate 18 19 18 Blood Pressure 89/65 L 86/58 L 97/64 Pulse Oximetry 91 94 91 06/11/21 20:20 06/11/21 20:30 06/11/21 21:52 Temperature 95.0 F L Pulse Rate 93 H 90 95 H Respiratory Rate 17 16 21 Blood Pressure 98/60 90/54 L 88/68 L Pulse Oximetry 92 94 94 06/11/21 22:56 06/11/21 23:43 06/12/21 00:02 Temperature 95.5 F L Pulse Rate 86 91 H Respiratory Rate 21 19 Blood Pressure 109/68 98/59 L Pulse Oximetry 94 94 06/12/21 01:32 06/12/21 01:48 Temperature 96.6 F L Pulse Rate 88 89 Respiratory Rate 14 17 Blood Pressure 91/54 L 97/59 L Pulse Oximetry 93 98 Oxygen Delivery Method Room Air Oxygen Flow Rate 3 Objective Labs Result Diagrams: 06/11/21 19:12 06/11/21 19:12 Labs: Laboratory Results - last 24 hr 06/11/21 06/11/21 06/11/21 19:01 19:01 19:12 WBC 8.9 RBC 3.81 L Hgb 10.0 L Hct 32.2 L MCV 84.6 MCH 26.2 MCHC 30.9 RDW 21.6 H Plt Count 345 Neut % (Auto) 74.4 Lymph % (Auto) 18.7 L [place] % (Auto) 6.4 Eos % (Auto) 0.2 L Baso % (Auto) 0.3 Neut # (Auto) 6600 Lymph # (Auto) 1700 [place] # (Auto) 600 Eos # (Auto) 0 Baso # (Auto) 0 RBC Morphology See below Dimorphic RBCs Present Polychromasia 2+ H Hypochromasia 1+ H Poikilocytosis 1+ H Microcytosis 1+ H Macrocytosis 1+ H PT INR APTT ABG pH ABG pCO2 ABG pO2 ABG HCO3 ABG Total CO2 ABG O2 Saturation ABG Base Excess FiO2 Sodium Potassium Chloride Carbon Dioxide BUN Creatinine Estimated GFR BUN/Creatinine Ratio Glucose Hemoglobin A1c Lactate Calcium Phosphorus Magnesium Total Bilirubin AST ALT Alkaline Phosphatase Ammonia Lactate Dehydrogenase Total Creatine Kinase CK-MB (CK-2) CK-MB (CK-2) Rel Index Troponin I NT-Pro-B Natriuret Pep Total Protein Albumin Globulin Albumin/Globulin Ratio Triglycerides Cholesterol LDL Cholesterol, Calc HDL Cholesterol Amylase Lipase Procalcitonin TSH U Opiates 300ng/mL cut Ur Oxycodone Screen Urine Methadone Screen Acetaminophen Ur Barbiturates Screen U Tricyclic Antidepress Ur Phencyclidine Scrn Ur Amphetamines Screen U Methamphetamines Scrn Ur MDMA Scrn (Ecstasy) U Benzodiazepines Scrn Urine Cocaine Screen U Marijuana (THC) Screen Chlamy pneumoniae PCR Not detected Adenovirus (PCR) Not detected B. pertussis DNA (PCR) Not detected B.parapertussis DNA PCR Not detected Coronavirus OC43 (PCR) Not detected Coronavirus HKU1 (PCR) Not detected Coronavirus 229E (PCR) Not detected SARS-CoV-2 (PCR) Negative Not detected Coronavirus NL63 (PCR) Not detected Human Metapneumovir PCR Not detected Influenza Type A (PCR) Not detected Influenza Type B (PCR) Not detected M. pneumoniae (PCR) Not detected Parainfluenza 1 (PCR) Not detected Parainfluenza 2 (PCR) Not detected Parainfluenza 3 (PCR) Not detected Parainfluenza 4 (PCR) Not detected RSV (PCR) Not detected Entero/Rhino (PCR) Not detected 06/11/21 06/11/21 06/11/21 19:12 19:12 19:12 WBC RBC Hgb Hct MCV MCH MCHC RDW Plt Count Neut % (Auto) Lymph % (Auto) [place] % (Auto) Eos % (Auto) Baso % (Auto) Neut # (Auto) Lymph # (Auto) [place] # (Auto) Eos # (Auto) Baso # (Auto) RBC Morphology Dimorphic RBCs Polychromasia Hypochromasia Poikilocytosis Microcytosis Macrocytosis PT INR APTT 46 H ABG pH ABG pCO2 ABG pO2 ABG HCO3 ABG Total CO2 ABG O2 Saturation ABG Base Excess FiO2 Sodium 139 Potassium 4.6 Chloride 98 Carbon Dioxide 9 L* BUN 20 H Creatinine 1.09 H Estimated GFR 49.1 L BUN/Creatinine Ratio 18.3 Glucose < 20 L* Hemoglobin A1c Lactate 14.3 H* Calcium 10.2 Phosphorus Magnesium Total Bilirubin 1.5 H AST 132 H ALT 52 H Alkaline Phosphatase 169 H Ammonia Lactate Dehydrogenase Total Creatine Kinase CK-MB (CK-2) CK-MB (CK-2) Rel Index Troponin I NT-Pro-B Natriuret Pep 08351 H Total Protein 8.1 Albumin 4.7 Globulin 3.4 Albumin/Globulin Ratio 1.4 Triglycerides Cholesterol LDL Cholesterol, Calc HDL Cholesterol Amylase Lipase 44 Procalcitonin TSH U Opiates 300ng/mL cut Ur Oxycodone Screen Urine Methadone Screen Acetaminophen Ur Barbiturates Screen U Tricyclic Antidepress Ur Phencyclidine Scrn Ur Amphetamines Screen U Methamphetamines Scrn Ur MDMA Scrn (Ecstasy) U Benzodiazepines Scrn Urine Cocaine Screen U Marijuana (THC) Screen Chlamy pneumoniae PCR Adenovirus (PCR) B. pertussis DNA (PCR) B.parapertussis DNA PCR Coronavirus OC43 (PCR) Coronavirus HKU1 (PCR) Coronavirus 229E (PCR) SARS-CoV-2 (PCR) Coronavirus NL63 (PCR) Human Metapneumovir PCR Influenza Type A (PCR) Influenza Type B (PCR) M. pneumoniae (PCR) Parainfluenza 1 (PCR) Parainfluenza 2 (PCR) Parainfluenza 3 (PCR) Parainfluenza 4 (PCR) RSV (PCR) Entero/Rhino (PCR) 06/11/21 06/11/21 06/11/21 19:12 19:12 19:12 WBC RBC Hgb Hct MCV MCH MCHC RDW Plt Count Neut % (Auto) Lymph % (Auto) [place] % (Auto) Eos % (Auto) Baso % (Auto) Neut # (Auto) Lymph # (Auto) [place] # (Auto) Eos # (Auto) Baso # (Auto) RBC Morphology Dimorphic RBCs Polychromasia Hypochromasia Poikilocytosis Microcytosis Macrocytosis PT 35.4 H INR 3.1 H APTT ABG pH ABG pCO2 ABG pO2 ABG HCO3 ABG Total CO2 ABG O2 Saturation ABG Base Excess FiO2 Sodium Potassium Chloride Carbon Dioxide BUN Creatinine Estimated GFR BUN/Creatinine Ratio Glucose Hemoglobin A1c Lactate Calcium Phosphorus Magnesium 2.1 Total Bilirubin AST ALT Alkaline Phosphatase Ammonia Lactate Dehydrogenase Total Creatine Kinase 98 CK-MB (CK-2) TNP CK-MB (CK-2) Rel Index TNP Troponin I 0.021 NT-Pro-B Natriuret Pep Total Protein Albumin Globulin Albumin/Globulin Ratio Triglycerides Cholesterol LDL Cholesterol, Calc HDL Cholesterol Amylase Lipase Procalcitonin 0.31 TSH U Opiates 300ng/mL cut Ur Oxycodone Screen Urine Methadone Screen Acetaminophen Ur Barbiturates Screen U Tricyclic Antidepress Ur Phencyclidine Scrn Ur Amphetamines Screen U Methamphetamines Scrn Ur MDMA Scrn (Ecstasy) U Benzodiazepines Scrn Urine Cocaine Screen U Marijuana (THC) Screen Chlamy pneumoniae PCR Adenovirus (PCR) B. pertussis DNA (PCR) B.parapertussis DNA PCR Coronavirus OC43 (PCR) Coronavirus HKU1 (PCR) Coronavirus 229E (PCR) SARS-CoV-2 (PCR) Coronavirus NL63 (PCR) Human Metapneumovir PCR Influenza Type A (PCR) Influenza Type B (PCR) M. pneumoniae (PCR) Parainfluenza 1 (PCR) Parainfluenza 2 (PCR) Parainfluenza 3 (PCR) Parainfluenza 4 (PCR) RSV (PCR) Entero/Rhino (PCR) 06/11/21 06/11/21 06/11/21 19:12 19:12 19:12 WBC RBC Hgb Hct MCV MCH MCHC RDW Plt Count Neut % (Auto) Lymph % (Auto) [place] % (Auto) Eos % (Auto) Baso % (Auto) Neut # (Auto) Lymph # (Auto) [place] # (Auto) Eos # (Auto) Baso # (Auto) RBC Morphology Dimorphic RBCs Polychromasia Hypochromasia Poikilocytosis Microcytosis Macrocytosis PT INR APTT ABG pH ABG pCO2 ABG pO2 ABG HCO3 ABG Total CO2 ABG O2 Saturation ABG Base Excess FiO2 Sodium Potassium Chloride Carbon Dioxide BUN Creatinine Estimated GFR BUN/Creatinine Ratio Glucose Hemoglobin A1c 4.9 Lactate Calcium Phosphorus Magnesium Total Bilirubin AST ALT Alkaline Phosphatase Ammonia Lactate Dehydrogenase Total Creatine Kinase CK-MB (CK-2) CK-MB (CK-2) Rel Index Troponin I NT-Pro-B Natriuret Pep Total Protein Albumin Globulin Albumin/Globulin Ratio Triglycerides Cholesterol LDL Cholesterol, Calc HDL Cholesterol Amylase Lipase Procalcitonin TSH 7.59 H U Opiates 300ng/mL cut Ur Oxycodone Screen Urine Methadone Screen Acetaminophen < 10 L Ur Barbiturates Screen U Tricyclic Antidepress Ur Phencyclidine Scrn Ur Amphetamines Screen U Methamphetamines Scrn Ur MDMA Scrn (Ecstasy) U Benzodiazepines Scrn Urine Cocaine Screen U Marijuana (THC) Screen Chlamy pneumoniae PCR Adenovirus (PCR) B. pertussis DNA (PCR) B.parapertussis DNA PCR Coronavirus OC43 (PCR) Coronavirus HKU1 (PCR) Coronavirus 229E (PCR) SARS-CoV-2 (PCR) Coronavirus NL63 (PCR) Human Metapneumovir PCR Influenza Type A (PCR) Influenza Type B (PCR) M. pneumoniae (PCR) Parainfluenza 1 (PCR) Parainfluenza 2 (PCR) Parainfluenza 3 (PCR) Parainfluenza 4 (PCR) RSV (PCR) Entero/Rhino (PCR) 06/11/21 06/12/21 06/12/21 21:47 00:53 00:53 WBC RBC Hgb Hct MCV MCH MCHC RDW Plt Count Neut % (Auto) Lymph % (Auto) [place] % (Auto) Eos % (Auto) Baso % (Auto) Neut # (Auto) Lymph # (Auto) [place] # (Auto) Eos # (Auto) Baso # (Auto) RBC Morphology Dimorphic RBCs Polychromasia Hypochromasia Poikilocytosis Microcytosis Macrocytosis PT INR APTT ABG pH ABG pCO2 ABG pO2 ABG HCO3 ABG Total CO2 ABG O2 Saturation ABG Base Excess FiO2 Sodium Potassium Chloride Carbon Dioxide BUN Creatinine Estimated GFR BUN/Creatinine Ratio Glucose Hemoglobin A1c Lactate 11.7 H* Calcium Phosphorus Magnesium Total Bilirubin AST ALT Alkaline Phosphatase Ammonia < 9 L Lactate Dehydrogenase 3018 H Total Creatine Kinase CK-MB (CK-2) CK-MB (CK-2) Rel Index Troponin I NT-Pro-B Natriuret Pep Total Protein Albumin Globulin Albumin/Globulin Ratio Triglycerides 35 Cholesterol 101 L LDL Cholesterol, Calc 44 HDL Cholesterol 50 Amylase 90 Lipase Procalcitonin TSH U Opiates 300ng/mL cut Ur Oxycodone Screen Urine Methadone Screen Acetaminophen Ur Barbiturates Screen U Tricyclic Antidepress Ur Phencyclidine Scrn Ur Amphetamines Screen U Methamphetamines Scrn Ur MDMA Scrn (Ecstasy) U Benzodiazepines Scrn Urine Cocaine Screen U Marijuana (THC) Screen Chlamy pneumoniae PCR Adenovirus (PCR) B. pertussis DNA (PCR) B.parapertussis DNA PCR Coronavirus OC43 (PCR) Coronavirus HKU1 (PCR) Coronavirus 229E (PCR) SARS-CoV-2 (PCR) Coronavirus NL63 (PCR) Human Metapneumovir PCR Influenza Type A (PCR) Influenza Type B (PCR) M. pneumoniae (PCR) Parainfluenza 1 (PCR) Parainfluenza 2 (PCR) Parainfluenza 3 (PCR) Parainfluenza 4 (PCR) RSV (PCR) Entero/Rhino (PCR) 06/12/21 06/12/21 06/12/21 00:53 01:03 02:00 WBC RBC Hgb Hct MCV MCH MCHC RDW Plt Count Neut % (Auto) Lymph % (Auto) [place] % (Auto) Eos % (Auto) Baso % (Auto) Neut # (Auto) Lymph # (Auto) [place] # (Auto) Eos # (Auto) Baso # (Auto) RBC Morphology Dimorphic RBCs Polychromasia Hypochromasia Poikilocytosis Microcytosis Macrocytosis PT INR APTT ABG pH 7.40 ABG pCO2 25.0 L ABG pO2 79 L ABG HCO3 15 L ABG Total CO2 16 L ABG O2 Saturation 96 ABG Base Excess -9.0 L FiO2 32 Sodium Potassium Chloride Carbon Dioxide BUN Creatinine Estimated GFR BUN/Creatinine Ratio Glucose Hemoglobin A1c Lactate 5.6 H* Calcium Phosphorus 5.1 H Magnesium Total Bilirubin AST ALT Alkaline Phosphatase Ammonia Lactate Dehydrogenase Total Creatine Kinase CK-MB (CK-2) CK-MB (CK-2) Rel Index Troponin I NT-Pro-B Natriuret Pep Total Protein Albumin Globulin Albumin/Globulin Ratio Triglycerides Cholesterol LDL Cholesterol, Calc HDL Cholesterol Amylase Lipase Procalcitonin TSH U Opiates 300ng/mL cut Ur Oxycodone Screen Urine Methadone Screen Acetaminophen Ur Barbiturates Screen U Tricyclic Antidepress Ur Phencyclidine Scrn Ur Amphetamines Screen U Methamphetamines Scrn Ur MDMA Scrn (Ecstasy) U Benzodiazepines Scrn Urine Cocaine Screen U Marijuana (THC) Screen Chlamy pneumoniae PCR Adenovirus (PCR) B. pertussis DNA (PCR) B.parapertussis DNA PCR Coronavirus OC43 (PCR) Coronavirus HKU1 (PCR) Coronavirus 229E (PCR) SARS-CoV-2 (PCR) Coronavirus NL63 (PCR) Human Metapneumovir PCR Influenza Type A (PCR) Influenza Type B (PCR) M. pneumoniae (PCR) Parainfluenza 1 (PCR) Parainfluenza 2 (PCR) Parainfluenza 3 (PCR) Parainfluenza 4 (PCR) RSV (PCR) Entero/Rhino (PCR) 06/12/21 02:04 WBC RBC Hgb Hct MCV MCH MCHC RDW Plt Count Neut % (Auto) Lymph % (Auto) [place] % (Auto) Eos % (Auto) Baso % (Auto) Neut # (Auto) Lymph # (Auto) [place] # (Auto) Eos # (Auto) Baso # (Auto) RBC Morphology Dimorphic RBCs Polychromasia Hypochromasia Poikilocytosis Microcytosis Macrocytosis PT INR APTT ABG pH ABG pCO2 ABG pO2 ABG HCO3 ABG Total CO2 ABG O2 Saturation ABG Base Excess FiO2 Sodium Potassium Chloride Carbon Dioxide BUN Creatinine Estimated GFR BUN/Creatinine Ratio Glucose Hemoglobin A1c Lactate Calcium Phosphorus Magnesium Total Bilirubin AST ALT Alkaline Phosphatase Ammonia Lactate Dehydrogenase Total Creatine Kinase CK-MB (CK-2) CK-MB (CK-2) Rel Index Troponin I NT-Pro-B Natriuret Pep Total Protein Albumin Globulin Albumin/Globulin Ratio Triglycerides Cholesterol LDL Cholesterol, Calc HDL Cholesterol Amylase Lipase Procalcitonin TSH U Opiates 300ng/mL cut Negative Ur Oxycodone Screen Negative Urine Methadone Screen Negative Acetaminophen Ur Barbiturates Screen Negative U Tricyclic Antidepress Negative Ur Phencyclidine Scrn Negative Ur Amphetamines Screen Negative U Methamphetamines Scrn Negative Ur MDMA Scrn (Ecstasy) Negative U Benzodiazepines Scrn Negative Urine Cocaine Screen Negative U Marijuana (THC) Screen Negative Chlamy pneumoniae PCR Adenovirus (PCR) B. pertussis DNA (PCR) B.parapertussis DNA PCR Coronavirus OC43 (PCR) Coronavirus HKU1 (PCR) Coronavirus 229E (PCR) SARS-CoV-2 (PCR) Coronavirus NL63 (PCR) Human Metapneumovir PCR Influenza Type A (PCR) Influenza Type B (PCR) M. pneumoniae (PCR) Parainfluenza 1 (PCR) Parainfluenza 2 (PCR) Parainfluenza 3 (PCR) Parainfluenza 4 (PCR) RSV (PCR) Entero/Rhino (PCR) Assessment & Plan Time Spent With Patient Critical Care time: I spent a total of [] minutes of critical care time on this patient's care today; this time is exclusive of procedural time.
--- NOTE | 2021-06-12 03:48 | P.TELICUCN_ITS ---
History of Present Illness Consult details Chief complaint: chest pain,SOB,distended belly,extremity tremors, :: This patient was seen via real time interactive two-way audiovisual telecommunication. Narrative: 75-year-old female with H/o of atrial fibrillation on Xarelto, pulmonary hypertension on tadafil, presented with abdominal pain & distension, shortness of breath and tremors.? ? Septic shock, sepsis source? Intra-abdominal, ? ischemic bowel Pul edema with small bl pl effusion Acute CHF exacerbation Anasarca Acute Hepatitis HAGMA/ sever lactic acidosis Elevated TSH Hypoglycemia ? Recommendation STAT general surgery consult Switch AB to Vanc & Zosyn, f/u Blood cx, UA & Cx Albumin bolus, start IV Wilber for MAP goal 65, Dc fluid maintenance for now Trend Lactate Q6H, BMP Q12 hr, LFT daily Check hepatitis viral panel Check free T4 2 D Echo Strict NPO Blood sugar check Q3h, may need D10 drip if BS becomes low IV heparin for anticoagulation for Afib/ hold Xarelto IV PPI bid Plan was discussed with SUBSTANCE ABUSE TECHNICIAN. [facility] Medical History (Updated 06/12/21 @ 03:34 by FRANCISCO J Rodrigez-JOSH) Atrial fibrillation Chronic anticoagulation CREST (calcinosis, Raynaud's phenomenon, esophageal dysfunction, sclerodactyly, telangiectasia) GERD (gastroesophageal reflux disease) History of cardioversion History of cyst of breast History of pulmonary embolism Pulmonary edema Pulmonary hypertension Pulmonary hypertension Surgical History (Updated 06/12/21 @ 03:34 by RADHA Rodrigez) History of oophorectomy History of rectal surgery Family History (Updated 06/12/21 @ 03:36 by RADHA Rodrigez) Mother Diabetes mellitus Sister COPD (chronic obstructive pulmonary disease) Ulcerative colitis Social History (Updated 06/12/21 @ 01:34 by Jordan Thomas DO) marital status: household members: spouse lives independently: Yes Smoking Status: Never smoker alcohol intake: former Current Medications Current Medications Medications: Home Medications Calcium Magnesium 06/12/21 [History] ambrisentan 5 mg tablet 5 mg PO DAILY 06/12/21 [History Confirmed 06/12/21] atorvastatin 10 mg tablet 10 mg PO DAILY 06/12/21 [History Confirmed 06/12/21] baclofen 10 mg tablet 10 mg PO TID PRN 06/12/21 [History Confirmed 06/12/21] cyanocobalamin (vitamin B-12) 2,000 mcg tablet 2,000 mcg PO DAILY 06/12/21 [History Confirmed 06/12/21] diclofenac sodium 1 % topical gel 2 g TOPICAL QID 06/12/21 [History Confirmed 06/12/21] duloxetine 20 mg capsule,delayed release 20 mg PO DAILY 06/12/21 [History Confirmed 06/12/21] esomeprazole magnesium 40 mg capsule,delayed release (Nexium) 40 mg PO DAILY 06/12/21 [History Confirmed 06/12/21] ferrous sulfate 325 mg (65 mg iron) tablet (FeroSul) 325 mg PO Q OTHER DAY 06/12/21 [History Confirmed 06/12/21] flecainide 50 mg tablet 50 mg PO BID 06/12/21 [History Confirmed 06/12/21] folic acid 1 mg tablet 5 mg PO DAILY 06/12/21 [History Confirmed 06/12/21] furosemide 20 mg tablet 20 mg PO DAILY 06/12/21 [History Confirmed 06/12/21] gabapentin 300 mg capsule 600 mg PO BID 06/12/21 [History Confirmed 06/12/21] hydrocodone 5 mg-acetaminophen 325 mg tablet 1 tab PO QID PRN 06/12/21 [History Confirmed 06/12/21] hydroxychloroquine 200 mg tablet 300 mg PO DAILY 06/12/21 [History Confirmed 06/12/21] methotrexate sodium (PF) 25 mg/mL injection solution 0.8 mg SUBCUT Q7D 06/12/21 [History Confirmed 06/12/21] metoprolol succinate 25 mg tablet,extended release 24 hr 12.5 mg PO QPM 06/12/21 [History Confirmed 06/12/21] potassium chloride 10 mEq tablet,extended release 20 meq PO BID 06/12/21 [History Confirmed 06/12/21] rivaroxaban 20 mg tablet (Xarelto) 20 mg PO DAILY 06/12/21 [History Confirmed 06/12/21] tadalafil 20 mg tablet 20 mg PO DAILY 06/12/21 [History Confirmed 06/12/21] Exam Vital Signs (past 8 hours): - 06/11/21 20:00 06/11/21 20:07 06/11/21 20:10 Temperature Pulse Rate 98 H 96 H 99 H Respiratory Rate 18 19 18 Blood Pressure 89/65 L 86/58 L 97/64 Pulse Oximetry 91 94 91 06/11/21 20:20 06/11/21 20:30 06/11/21 21:52 Temperature 95.0 F L Pulse Rate 93 H 90 95 H Respiratory Rate 17 16 21 Blood Pressure 98/60 90/54 L 88/68 L Pulse Oximetry 92 94 94 06/11/21 22:56 06/11/21 23:43 06/12/21 00:02 Temperature 95.5 F L Pulse Rate 86 91 H Respiratory Rate 21 19 Blood Pressure 109/68 98/59 L Pulse Oximetry 94 94 06/12/21 01:32 06/12/21 01:48 Temperature 96.6 F L Pulse Rate 88 89 Respiratory Rate 14 17 Blood Pressure 91/54 L 97/59 L Pulse Oximetry 93 98 Oxygen Delivery Method Room Air Oxygen Flow Rate 3 Objective Labs Result Diagrams: 06/11/21 19:12 06/11/21 19:12 Labs: Laboratory Results - last 24 hr 06/11/21 06/11/21 06/11/21 19:01 19:01 19:12 WBC 8.9 RBC 3.81 L Hgb 10.0 L Hct 32.2 L MCV 84.6 MCH 26.2 MCHC 30.9 RDW 21.6 H Plt Count 345 Neut % (Auto) 74.4 Lymph % (Auto) 18.7 L Bennett % (Auto) 6.4 Eos % (Auto) 0.2 L Baso % (Auto) 0.3 Neut # (Auto) 6600 Lymph # (Auto) 1700 Bennett # (Auto) 600 Eos # (Auto) 0 Baso # (Auto) 0 RBC Morphology See below Dimorphic RBCs Present Polychromasia 2+ H Hypochromasia 1+ H Poikilocytosis 1+ H Microcytosis 1+ H Macrocytosis 1+ H PT INR APTT ABG pH ABG pCO2 ABG pO2 ABG HCO3 ABG Total CO2 ABG O2 Saturation ABG Base Excess FiO2 Sodium Potassium Chloride Carbon Dioxide BUN Creatinine Estimated GFR BUN/Creatinine Ratio Glucose Hemoglobin A1c Lactate Calcium Phosphorus Magnesium Total Bilirubin AST ALT Alkaline Phosphatase Ammonia Lactate Dehydrogenase Total Creatine Kinase CK-MB (CK-2) CK-MB (CK-2) Rel Index Troponin I NT-Pro-B Natriuret Pep Total Protein Albumin Globulin Albumin/Globulin Ratio Triglycerides Cholesterol LDL Cholesterol, Calc HDL Cholesterol Amylase Lipase Procalcitonin TSH U Opiates 300ng/mL cut Ur Oxycodone Screen Urine Methadone Screen Acetaminophen Ur Barbiturates Screen U Tricyclic Antidepress Ur Phencyclidine Scrn Ur Amphetamines Screen U Methamphetamines Scrn Ur MDMA Scrn (Ecstasy) U Benzodiazepines Scrn Urine Cocaine Screen U Marijuana (THC) Screen Chlamy pneumoniae PCR Not detected Adenovirus (PCR) Not detected B. pertussis DNA (PCR) Not detected B.parapertussis DNA PCR Not detected Coronavirus OC43 (PCR) Not detected Coronavirus HKU1 (PCR) Not detected Coronavirus 229E (PCR) Not detected SARS-CoV-2 (PCR) Negative Not detected Coronavirus NL63 (PCR) Not detected Human Metapneumovir PCR Not detected Influenza Type A (PCR) Not detected Influenza Type B (PCR) Not detected M. pneumoniae (PCR) Not detected Parainfluenza 1 (PCR) Not detected Parainfluenza 2 (PCR) Not detected Parainfluenza 3 (PCR) Not detected Parainfluenza 4 (PCR) Not detected RSV (PCR) Not detected Entero/Rhino (PCR) Not detected 06/11/21 06/11/21 06/11/21 19:12 19:12 19:12 WBC RBC Hgb Hct MCV MCH MCHC RDW Plt Count Neut % (Auto) Lymph % (Auto) Bennett % (Auto) Eos % (Auto) Baso % (Auto) Neut # (Auto) Lymph # (Auto) Bennett # (Auto) Eos # (Auto) Baso # (Auto) RBC Morphology Dimorphic RBCs Polychromasia Hypochromasia Poikilocytosis Microcytosis Macrocytosis PT INR APTT 46 H ABG pH ABG pCO2 ABG pO2 ABG HCO3 ABG Total CO2 ABG O2 Saturation ABG Base Excess FiO2 Sodium 139 Potassium 4.6 Chloride 98 Carbon Dioxide 9 L* BUN 20 H Creatinine 1.09 H Estimated GFR 49.1 L BUN/Creatinine Ratio 18.3 Glucose < 20 L* Hemoglobin A1c Lactate 14.3 H* Calcium 10.2 Phosphorus Magnesium Total Bilirubin 1.5 H AST 132 H ALT 52 H Alkaline Phosphatase 169 H Ammonia Lactate Dehydrogenase Total Creatine Kinase CK-MB (CK-2) CK-MB (CK-2) Rel Index Troponin I NT-Pro-B Natriuret Pep 55951 H Total Protein 8.1 Albumin 4.7 Globulin 3.4 Albumin/Globulin Ratio 1.4 Triglycerides Cholesterol LDL Cholesterol, Calc HDL Cholesterol Amylase Lipase 44 Procalcitonin TSH U Opiates 300ng/mL cut Ur Oxycodone Screen Urine Methadone Screen Acetaminophen Ur Barbiturates Screen U Tricyclic Antidepress Ur Phencyclidine Scrn Ur Amphetamines Screen U Methamphetamines Scrn Ur MDMA Scrn (Ecstasy) U Benzodiazepines Scrn Urine Cocaine Screen U Marijuana (THC) Screen Chlamy pneumoniae PCR Adenovirus (PCR) B. pertussis DNA (PCR) B.parapertussis DNA PCR Coronavirus OC43 (PCR) Coronavirus HKU1 (PCR) Coronavirus 229E (PCR) SARS-CoV-2 (PCR) Coronavirus NL63 (PCR) Human Metapneumovir PCR Influenza Type A (PCR) Influenza Type B (PCR) M. pneumoniae (PCR) Parainfluenza 1 (PCR) Parainfluenza 2 (PCR) Parainfluenza 3 (PCR) Parainfluenza 4 (PCR) RSV (PCR) Entero/Rhino (PCR) 06/11/21 06/11/21 06/11/21 19:12 19:12 19:12 WBC RBC Hgb Hct MCV MCH MCHC RDW Plt Count Neut % (Auto) Lymph % (Auto) Bennett % (Auto) Eos % (Auto) Baso % (Auto) Neut # (Auto) Lymph # (Auto) Bennett # (Auto) Eos # (Auto) Baso # (Auto) RBC Morphology Dimorphic RBCs Polychromasia Hypochromasia Poikilocytosis Microcytosis Macrocytosis PT 35.4 H INR 3.1 H APTT ABG pH ABG pCO2 ABG pO2 ABG HCO3 ABG Total CO2 ABG O2 Saturation ABG Base Excess FiO2 Sodium Potassium Chloride Carbon Dioxide BUN Creatinine Estimated GFR BUN/Creatinine Ratio Glucose Hemoglobin A1c Lactate Calcium Phosphorus Magnesium 2.1 Total Bilirubin AST ALT Alkaline Phosphatase Ammonia Lactate Dehydrogenase Total Creatine Kinase 98 CK-MB (CK-2) TNP CK-MB (CK-2) Rel Index TNP Troponin I 0.021 NT-Pro-B Natriuret Pep Total Protein Albumin Globulin Albumin/Globulin Ratio Triglycerides Cholesterol LDL Cholesterol, Calc HDL Cholesterol Amylase Lipase Procalcitonin 0.31 TSH U Opiates 300ng/mL cut Ur Oxycodone Screen Urine Methadone Screen Acetaminophen Ur Barbiturates Screen U Tricyclic Antidepress Ur Phencyclidine Scrn Ur Amphetamines Screen U Methamphetamines Scrn Ur MDMA Scrn (Ecstasy) U Benzodiazepines Scrn Urine Cocaine Screen U Marijuana (THC) Screen Chlamy pneumoniae PCR Adenovirus (PCR) B. pertussis DNA (PCR) B.parapertussis DNA PCR Coronavirus OC43 (PCR) Coronavirus HKU1 (PCR) Coronavirus 229E (PCR) SARS-CoV-2 (PCR) Coronavirus NL63 (PCR) Human Metapneumovir PCR Influenza Type A (PCR) Influenza Type B (PCR) M. pneumoniae (PCR) Parainfluenza 1 (PCR) Parainfluenza 2 (PCR) Parainfluenza 3 (PCR) Parainfluenza 4 (PCR) RSV (PCR) Entero/Rhino (PCR) 06/11/21 06/11/21 06/11/21 19:12 19:12 19:12 WBC RBC Hgb Hct MCV MCH MCHC RDW Plt Count Neut % (Auto) Lymph % (Auto) Bennett % (Auto) Eos % (Auto) Baso % (Auto) Neut # (Auto) Lymph # (Auto) Bennett # (Auto) Eos # (Auto) Baso # (Auto) RBC Morphology Dimorphic RBCs Polychromasia Hypochromasia Poikilocytosis Microcytosis Macrocytosis PT INR APTT ABG pH ABG pCO2 ABG pO2 ABG HCO3 ABG Total CO2 ABG O2 Saturation ABG Base Excess FiO2 Sodium Potassium Chloride Carbon Dioxide BUN Creatinine Estimated GFR BUN/Creatinine Ratio Glucose Hemoglobin A1c 4.9 Lactate Calcium Phosphorus Magnesium Total Bilirubin AST ALT Alkaline Phosphatase Ammonia Lactate Dehydrogenase Total Creatine Kinase CK-MB (CK-2) CK-MB (CK-2) Rel Index Troponin I NT-Pro-B Natriuret Pep Total Protein Albumin Globulin Albumin/Globulin Ratio Triglycerides Cholesterol LDL Cholesterol, Calc HDL Cholesterol Amylase Lipase Procalcitonin TSH 7.59 H U Opiates 300ng/mL cut Ur Oxycodone Screen Urine Methadone Screen Acetaminophen < 10 L Ur Barbiturates Screen U Tricyclic Antidepress Ur Phencyclidine Scrn Ur Amphetamines Screen U Methamphetamines Scrn Ur MDMA Scrn (Ecstasy) U Benzodiazepines Scrn Urine Cocaine Screen U Marijuana (THC) Screen Chlamy pneumoniae PCR Adenovirus (PCR) B. pertussis DNA (PCR) B.parapertussis DNA PCR Coronavirus OC43 (PCR) Coronavirus HKU1 (PCR) Coronavirus 229E (PCR) SARS-CoV-2 (PCR) Coronavirus NL63 (PCR) Human Metapneumovir PCR Influenza Type A (PCR) Influenza Type B (PCR) M. pneumoniae (PCR) Parainfluenza 1 (PCR) Parainfluenza 2 (PCR) Parainfluenza 3 (PCR) Parainfluenza 4 (PCR) RSV (PCR) Entero/Rhino (PCR) 06/11/21 06/12/21 06/12/21 21:47 00:53 00:53 WBC RBC Hgb Hct MCV MCH MCHC RDW Plt Count Neut % (Auto) Lymph % (Auto) Bennett % (Auto) Eos % (Auto) Baso % (Auto) Neut # (Auto) Lymph # (Auto) Bennett # (Auto) Eos # (Auto) Baso # (Auto) RBC Morphology Dimorphic RBCs Polychromasia Hypochromasia Poikilocytosis Microcytosis Macrocytosis PT INR APTT ABG pH ABG pCO2 ABG pO2 ABG HCO3 ABG Total CO2 ABG O2 Saturation ABG Base Excess FiO2 Sodium Potassium Chloride Carbon Dioxide BUN Creatinine Estimated GFR BUN/Creatinine Ratio Glucose Hemoglobin A1c Lactate 11.7 H* Calcium Phosphorus Magnesium Total Bilirubin AST ALT Alkaline Phosphatase Ammonia < 9 L Lactate Dehydrogenase 3018 H Total Creatine Kinase CK-MB (CK-2) CK-MB (CK-2) Rel Index Troponin I NT-Pro-B Natriuret Pep Total Protein Albumin Globulin Albumin/Globulin Ratio Triglycerides 35 Cholesterol 101 L LDL Cholesterol, Calc 44 HDL Cholesterol 50 Amylase 90 Lipase Procalcitonin TSH U Opiates 300ng/mL cut Ur Oxycodone Screen Urine Methadone Screen Acetaminophen Ur Barbiturates Screen U Tricyclic Antidepress Ur Phencyclidine Scrn Ur Amphetamines Screen U Methamphetamines Scrn Ur MDMA Scrn (Ecstasy) U Benzodiazepines Scrn Urine Cocaine Screen U Marijuana (THC) Screen Chlamy pneumoniae PCR Adenovirus (PCR) B. pertussis DNA (PCR) B.parapertussis DNA PCR Coronavirus OC43 (PCR) Coronavirus HKU1 (PCR) Coronavirus 229E (PCR) SARS-CoV-2 (PCR) Coronavirus NL63 (PCR) Human Metapneumovir PCR Influenza Type A (PCR) Influenza Type B (PCR) M. pneumoniae (PCR) Parainfluenza 1 (PCR) Parainfluenza 2 (PCR) Parainfluenza 3 (PCR) Parainfluenza 4 (PCR) RSV (PCR) Entero/Rhino (PCR) 06/12/21 06/12/21 06/12/21 00:53 01:03 02:00 WBC RBC Hgb Hct MCV MCH MCHC RDW Plt Count Neut % (Auto) Lymph % (Auto) Bennett % (Auto) Eos % (Auto) Baso % (Auto) Neut # (Auto) Lymph # (Auto) Bennett # (Auto) Eos # (Auto) Baso # (Auto) RBC Morphology Dimorphic RBCs Polychromasia Hypochromasia Poikilocytosis Microcytosis Macrocytosis PT INR APTT ABG pH 7.40 ABG pCO2 25.0 L ABG pO2 79 L ABG HCO3 15 L ABG Total CO2 16 L ABG O2 Saturation 96 ABG Base Excess -9.0 L FiO2 32 Sodium Potassium Chloride Carbon Dioxide BUN Creatinine Estimated GFR BUN/Creatinine Ratio Glucose Hemoglobin A1c Lactate 5.6 H* Calcium Phosphorus 5.1 H Magnesium Total Bilirubin AST ALT Alkaline Phosphatase Ammonia Lactate Dehydrogenase Total Creatine Kinase CK-MB (CK-2) CK-MB (CK-2) Rel Index Troponin I NT-Pro-B Natriuret Pep Total Protein Albumin Globulin Albumin/Globulin Ratio Triglycerides Cholesterol LDL Cholesterol, Calc HDL Cholesterol Amylase Lipase Procalcitonin TSH U Opiates 300ng/mL cut Ur Oxycodone Screen Urine Methadone Screen Acetaminophen Ur Barbiturates Screen U Tricyclic Antidepress Ur Phencyclidine Scrn Ur Amphetamines Screen U Methamphetamines Scrn Ur MDMA Scrn (Ecstasy) U Benzodiazepines Scrn Urine Cocaine Screen U Marijuana (THC) Screen Chlamy pneumoniae PCR Adenovirus (PCR) B. pertussis DNA (PCR) B.parapertussis DNA PCR Coronavirus OC43 (PCR) Coronavirus HKU1 (PCR) Coronavirus 229E (PCR) SARS-CoV-2 (PCR) Coronavirus NL63 (PCR) Human Metapneumovir PCR Influenza Type A (PCR) Influenza Type B (PCR) M. pneumoniae (PCR) Parainfluenza 1 (PCR) Parainfluenza 2 (PCR) Parainfluenza 3 (PCR) Parainfluenza 4 (PCR) RSV (PCR) Entero/Rhino (PCR) 06/12/21 02:04 WBC RBC Hgb Hct MCV MCH MCHC RDW Plt Count Neut % (Auto) Lymph % (Auto) Bennett % (Auto) Eos % (Auto) Baso % (Auto) Neut # (Auto) Lymph # (Auto) Bennett # (Auto) Eos # (Auto) Baso # (Auto) RBC Morphology Dimorphic RBCs Polychromasia Hypochromasia Poikilocytosis Microcytosis Macrocytosis PT INR APTT ABG pH ABG pCO2 ABG pO2 ABG HCO3 ABG Total CO2 ABG O2 Saturation ABG Base Excess FiO2 Sodium Potassium Chloride Carbon Dioxide BUN Creatinine Estimated GFR BUN/Creatinine Ratio Glucose Hemoglobin A1c Lactate Calcium Phosphorus Magnesium Total Bilirubin AST ALT Alkaline Phosphatase Ammonia Lactate Dehydrogenase Total Creatine Kinase CK-MB (CK-2) CK-MB (CK-2) Rel Index Troponin I NT-Pro-B Natriuret Pep Total Protein Albumin Globulin Albumin/Globulin Ratio Triglycerides Cholesterol LDL Cholesterol, Calc HDL Cholesterol Amylase Lipase Procalcitonin TSH U Opiates 300ng/mL cut Negative Ur Oxycodone Screen Negative Urine Methadone Screen Negative Acetaminophen Ur Barbiturates Screen Negative U Tricyclic Antidepress Negative Ur Phencyclidine Scrn Negative Ur Amphetamines Screen Negative U Methamphetamines Scrn Negative Ur MDMA Scrn (Ecstasy) Negative U Benzodiazepines Scrn Negative Urine Cocaine Screen Negative U Marijuana (THC) Screen Negative Chlamy pneumoniae PCR Adenovirus (PCR) B. pertussis DNA (PCR) B.parapertussis DNA PCR Coronavirus OC43 (PCR) Coronavirus HKU1 (PCR) Coronavirus 229E (PCR) SARS-CoV-2 (PCR) Coronavirus NL63 (PCR) Human Metapneumovir PCR Influenza Type A (PCR) Influenza Type B (PCR) M. pneumoniae (PCR) Parainfluenza 1 (PCR) Parainfluenza 2 (PCR) Parainfluenza 3 (PCR) Parainfluenza 4 (PCR) RSV (PCR) Entero/Rhino (PCR) Assessment & Plan Time Spent With Patient Critical Care time: I spent a total of [] minutes of critical care time on this patient's care today; this time is exclusive of procedural time.
--- NOTE | 2021-06-12 04:03 | PM.PROC.1 ---
Procedures Date/Time Date of procedure: 06/12/21 Time of procedure: 04:04 Central Line Placement Time out performed: Yes Patient placed on monitor/pulse ox: Yes MD prep: mask, gown and gloves Central line prep: Povidone-Iodine 1% Local anesthesia used: lidocaine 1% Amount of anesthesia used (ml): 5 Ultrasound used for placement: Yes Central line lumen inserted: triple Post procedure: sutured in place, good blood return, all ports aspirated, flushed, capped and sterile dressing applied Post procedure x-ray: tip of catheter in good position and no pneumothorax seen Patient tolerated procedure: well and no complications Additional comments: Right IJ
[2021-06-12 04:07] LABS: Reflexed Lactate in 2 Hours Y
[2021-06-12] MEDS: ALBUMIN HUMAN 50 GM/200 ML VIAL IV (04:15)
--- NOTE | 2021-06-12 04:15 | DI.ECHO.S_ITS ---
[facility]---------+ [facility] +---------+ : : [address] : : : : [id number] : : : : Phone: [phone] Echocardiogram Report + + :Name: TIAGO MCGRAW Study Date: 06/12/2021 Height: 67 in : :[facility] ReadingLocation: Weight: 135 lb : : Gender: Female BSA: 1.7 m2 : :: 1945 Age: 75 yrs BP: 109/68 mmHg: :Reason For Study: LACTIC ACIDOSIS, ACUTE RESPRITORY FAILURE, : :CONGESTIVE HEART FAILURE EXACERBATION : :Ordering Physician: MARICRUZ, : :CARTER Performed By: Ashanti Dukes : :Referring: CARTER ALCANTARA : + + Interpretation Summary Afib with RVR. The left ventricle is normal in size and wall thickness. The ejection fraction is estimated to be 55-60%. There are no focal wall motion abnormalities. Diastolic function could not be accurately assessed due to atrial fibrillation. The right ventricle is mildly dilated and demonstrates moderately reduced RV function. Severe biatrial enlargement. Moderate eccentric posterolaterally directed MR without significant associated leaflet abnormality. There is mild mitral annular calcification. Mild-moderate central TR with PA systolic pressure estimated at 50 mm hg assuming RA pressure of 10 mm Hg Compared to prior study 12/17/2020 biatrial enlargement progressed from moderate to severe. Elevated PA systolic pressure is newly described. Moderately reduced RV function is new. Mild RV enlargement is new. Procedure: A two-dimensional transthoracic echocardiogram with color flow and Doppler was performed. The study quality was technically good. Comparison is made with the echocardiogram of 12/17/2020. The patient was in atrial fibrillation with heart rates between 95-130 bpm during the exam. Left Ventricle: The left ventricle is normal in size and wall thickness. The ejection fraction is estimated to be 55-60%. Diastolic function could not be accurately assessed due to atrial fibrillation. Right Ventricle: The right ventricle is mildly dilated. Right ventricular systolic function is moderately reduced. Atria: Both atria are severely dilated. There is no Doppler evidence for an interatrial shunt. Mitral Valve: The mitral valve leaflets appear mildly thickened, but open well. There is mild mitral annular calcification. There is moderate mitral regurgitation. Aortic Valve: The aortic valve is mildly calcified. The aortic valve is trileaflet. The aortic valve opens well. There is no aortic valve stenosis. There is mild aortic regurgitation. Tricuspid Valve: The tricuspid valve leaflets are thickened and/or calcified, but open well. There is mild to moderate tricuspid regurgitation. Multiple jets. Pulmonic Valve: The pulmonic valve is not well visualized. There is mild pulmonic regurgitation. Great Vessels: The aortic root is normal size. The ascending aorta is mildly enlarged. The IVC is dilated and has no respiratory collapse suggesting significantly high central venous pressure. Pericardium/ Pleura There is no pericardial effusion. There is no pleural effusion. MMode/2D Measurements & Calculations LVIDd: 4.4 cm LVOT diam: 2.2 cm LVIDs: 3.2 cm Ao root diam: 3.4 cm FS: 27.7 % asc Aorta Diam: 3.5 cm IVSd: 0.89 cm LVPWd: 0.87 cm LV diehl. diameter/BSA (cm/m^2): 2.6 LV sys. diameter/BSA (cm/m^2): 1.9 LA A2 area: 31.3 cm2 RA long axis: 6.2 cm LA A4 area: 25.8 cm2 RA area: 25.4 cm2 LA length (vol): 7.1 cm RA vol: 87.5 ml LA vol: 96.1 ml RA : 51.1 ml/m2 LA vol index: 56.2 ml/m2 IVC diam: 2.4 cm RVD1 (basal): 3.6 cm TAPSE: 0.92 cm Doppler Measurements & Calculations Ao V2 max: 101.9 cm/sec LVOT Max Daivd: 60.4 cm/sec Ao V2 mean: 71.4 cm/sec LV V1 max P.5 mmHg Ao max P.2 mmHg LV V1 VTI: 9.7 cm Ao mean P.3 mmHg ADIS(I,D): 2.3 cm2 Ao V2 VTI: 16.4 cm ADIS(V,D): 2.3 cm2 sev ratio: 0.59 ADIS indexed to BSA (cm^2/m^2): 1.3 MV E max david: 88.1 cm/sec TR max david: 272.0 cm/sec MV A max david: 1.6 cm/sec TR max P.6 mmHg MV E/A: 55.8 PA V2 max: 63.6 cm/sec Med Peak E' David: 4.0 cm/sec PA V2 mean: 42.3 cm/sec E/E' med: 21.9 PA mean P.81 mmHg Lat Peak E' David: 17.7 cm/sec E/E' lat: 5.0 E/e' average: 13.4 MV dec time: 0.10 sec MR ERO: 0.37 cm2 MR PISA: 4.6 cm2 SV(LVOT): 37.9 ml MR flow rate: 140.9 cm3/sec MR PISA radius: 0.85 cm Electronically signed by: Yuki Yang M.D. on Reading Physician:06/12/2021 03:07 PM
[2021-06-12] MEDS: SODIUM CHLORIDE 0.9% FLUSH 10 ML IV ×3 (04:16→20:39)
[2021-06-12] MEDS: HEPARIN 5,000 UNIT/ML VIAL 4000 UNIT IV (04:40)
[2021-06-12] MEDS: HEPARIN DRIP 25,000 UNIT/500 ML IV.SOLN 22.104 UNIT IV (04:41)
[2021-06-12 04:54] LABS: Prothrombin Time 34.4 SECONDS (10.1-12.7)
[2021-06-12 04:56] LABS: PTT Partial Thromboplastin Tim 47 SECONDS (26.4-36.2)
[2021-06-12 05:02] LABS: Basophils Absolute Auto 0 /uL (0-100); Basophils Percent Auto 0.1 % (0-2); Eosinophils Absolute Auto 0 /uL (0-450); Hemoglobin 7.2 g/dL (12.0-16.0); Lymphocytes Absolute Auto 1000 /uL (1100-4500); Lymphocytes Percent Auto 10.2 % (25-40); Mean Corpuscular HGB Conc 32.7 % (30-36); Mean Corpuscular Hemoglobin 26.3 PG (26-34); Mean Corpuscular Volume 80.4 fL (80-100); Monocytes Absolute Auto 600 /uL (0-900); Monocytes Percent Auto 6.6 % (3-14); Neutrophils Absolute Auto 7800 /uL (1500-7000); Neutrophils Percent Auto 83.1 % (50-75); Platelet Count 245 X10^3/uL (150-400); Red Blood Cell Count 2.74 X10^6/uL (4.0-5.2); Red Cell Distribution Width 20.7 % (11.6-14.8); White Blood Cell Count 9.3 X10^3/uL (4.5-11.0)
[2021-06-12 05:03] LABS: Add Manual Diff / Slide Review SLIDE REVIEW
[2021-06-12 05:06] LABS: Alanine Aminotransferase 276 IU/L (<35); Albumin 3.4 g/dL (3.5-5.0); Albumin Globulin Ratio 1.3 (1.0-2.8); Alkaline Phosphatase 112 U/L (38-126); BUN Creatinine Ratio 28.6 (6-22); Bilirubin Total 0.6 mg/dL (0.2-1.3); Blood Urea Nitrogen 28 mg/dL (7-17); Calcium 8.8 mg/dL (8.4-10.2); Carbon Dioxide 23 mmol/L (22-32); Chloride 100 mmol/L (98-107); Estimated Glomerular Filt Rate 55.5 mL/min (>60); Gamma Glutamyl Transpeptidase 90 U/L (12-43); Globulin 2.6 g/dL (1.7-4.1); Glucose 92 mg/dL (80-110); HEMOLYSIS < 15 (0-50); Magnesium 1.6 mg/dL (1.6-2.3); Potassium 4.1 mmol/L (3.4-5.1); Sodium 134 mmol/L (137-145)
[2021-06-12 05:07] LABS: Alanine Aminotransferase 283 IU/L (<35); Albumin 3.3 g/dL (3.5-5.0); Albumin Globulin Ratio 1.2 (1.0-2.8); Alkaline Phosphatase 105 U/L (38-126); Bilirubin Total 0.5 mg/dL (0.2-1.3); Bilirubin Unconjugated 0.3 mg/dL (0.0-1.1); Globulin 2.7 g/dL (1.7-4.1); HEMOLYSIS < 15 (0-50); Lactate 2HR (Lactic Acid Rflx) 2.4 mmol/L (0.7-2.1)
[2021-06-12 05:13] LABS: Aspartate Aminotransferase 802 IU/L (14-36)
[2021-06-12 05:16] LABS: Aspartate Aminotransferase 780 IU/L (14-36)
[2021-06-12 05:17] LABS: NT-proBNP (BNP-Adult 18+) 19600 pg/mL (<125); Troponin I 0.044 ng/mL (0.01-0.034)
[2021-06-12 05:35] LABS: Thyroid Stimulating Hormone 3.77 uIU/mL (0.47-4.68)
[2021-06-12] MEDS: PIPERACILLIN/TAZO 4.5 GM in SODIUM CHLORIDE 0.9% 100 ML 200 ML IV (06:29)
[2021-06-12 06:34] LABS: Anisocytosis 2+; Hypochromasia 1+; Target Cells 1+
[2021-06-12 07:23] LABS: INR 3.5 (0.9-1.3); Prothrombin Time 40.9 SECONDS (10.1-12.7)
[2021-06-12 07:26] LABS: PTT Partial Thromboplastin Tim 68 SECONDS (26.4-36.2)
[2021-06-12 07:32] LABS: Alanine Aminotransferase 265 IU/L (<35); Albumin 4.1 g/dL (3.5-5.0); Albumin Globulin Ratio 1.6 (1.0-2.8); Alkaline Phosphatase 108 U/L (38-126); Bilirubin Total 0.6 mg/dL (0.2-1.3); Bilirubin Unconjugated 0.3 mg/dL (0.0-1.1); Globulin 2.6 g/dL (1.7-4.1); HEMOLYSIS < 15 (0-50); Total Protein 6.7 g/dL (6.3-8.2)
[2021-06-12 07:35] LABS: Add Manual Diff / Slide Review NO; Basophils Absolute Auto 0 /uL (0-100); Basophils Percent Auto 0.2 % (0-2); Eosinophils Absolute Auto 0 /uL (0-450); Hematocrit 22.8 % (36-46); Hemoglobin 7.4 g/dL (12.0-16.0); Lymphocytes Absolute Auto 1200 /uL (1100-4500); Lymphocytes Percent Auto 12.9 % (25-40); Mean Corpuscular HGB Conc 32.3 % (30-36); Mean Corpuscular Hemoglobin 26.2 PG (26-34); Monocytes Absolute Auto 600 /uL (0-900); Monocytes Percent Auto 6.5 % (3-14); Neutrophils Absolute Auto 7300 /uL (1500-7000); Neutrophils Percent Auto 80.4 % (50-75); Platelet Count 251 X10^3/uL (150-400); Red Blood Cell Count 2.82 X10^6/uL (4.0-5.2); Red Cell Distribution Width 20.6 % (11.6-14.8)
[2021-06-12 07:40] LABS: Aspartate Aminotransferase 805 IU/L (14-36)
--- NOTE | 2021-06-12 07:52 | PC.ADMIT ---
[address] [facility] Admission Note: The patient,Glenda Villegas,75 y/o, was given written information regarding hospital policies, unit procedures and contact persons. Patient's smoking status: Never smoker. Vital Signs - 8 hr 06/12/21 00:02 06/12/21 01:32 06/12/21 01:48 Temperature 95.5 F L 96.6 F L Pulse Rate 88 89 Respiratory Rate 14 17 Blood Pressure 91/54 L 97/59 L Pulse Oximetry 93 98 06/12/21 02:00 Temperature Pulse Rate 93 H Respiratory Rate 16 Blood Pressure Pulse Oximetry 97 Patient admitted to ICU room 226 at 0145, fatigued but oriented to person, place, month and year, forgetful of recent events and is a poor historian, went home from ED with meds, wallet in room with patient, declines lock up, says her can take it home. Patient is in A-fib CVR/RVR, hovers around 100, initial BP 86/60(68), core temp 97.2, skin is warm, dry, intact. SpO2 90s, denies pain, dyspnea, or nausea. Albumin started, heparin gtt started but then DC'd by provider, Zosyn started, see Emar and lab values. CL placed in RIJ, tolerated well, moderate bleeding from site. Vital trends printed, placed in chart. 400ml UOP.
[2021-06-12 08:20] LABS: Hypochromasia 1+; Poikilocytosis 1+
[2021-06-12 08:21] LABS: Anisocytosis 2+
--- NOTE | 2021-06-12 10:18 | PM.PN.EICU ---
Subjective Subjective :: This patient was seen via real time interactive two-way audiovisual telecommunication. Current Medications Current Medications Medications: Home Medications Calcium Magnesium 06/12/21 [History] ambrisentan 5 mg tablet 5 mg PO DAILY 06/12/21 [History Confirmed 06/12/21] atorvastatin 10 mg tablet 10 mg PO DAILY 06/12/21 [History Confirmed 06/12/21] baclofen 10 mg tablet 10 mg PO TID PRN 06/12/21 [History Confirmed 06/12/21] cyanocobalamin (vitamin B-12) 2,000 mcg tablet 2,000 mcg PO DAILY 06/12/21 [History Confirmed 06/12/21] diclofenac sodium 1 % topical gel 2 g TOPICAL QID 06/12/21 [History Confirmed 06/12/21] duloxetine 20 mg capsule,delayed release 20 mg PO DAILY 06/12/21 [History Confirmed 06/12/21] esomeprazole magnesium 40 mg capsule,delayed release (Nexium) 40 mg PO DAILY 06/12/21 [History Confirmed 06/12/21] ferrous sulfate 325 mg (65 mg iron) tablet (FeroSul) 325 mg PO Q OTHER DAY 06/12/21 [History Confirmed 06/12/21] flecainide 50 mg tablet 50 mg PO BID 06/12/21 [History Confirmed 06/12/21] folic acid 1 mg tablet 5 mg PO DAILY 06/12/21 [History Confirmed 06/12/21] furosemide 20 mg tablet 20 mg PO DAILY 06/12/21 [History Confirmed 06/12/21] gabapentin 300 mg capsule 600 mg PO BID 06/12/21 [History Confirmed 06/12/21] hydrocodone 5 mg-acetaminophen 325 mg tablet 1 tab PO QID PRN 06/12/21 [History Confirmed 06/12/21] hydroxychloroquine 200 mg tablet 300 mg PO DAILY 06/12/21 [History Confirmed 06/12/21] methotrexate sodium (PF) 25 mg/mL injection solution 0.8 mg SUBCUT Q7D 06/12/21 [History Confirmed 06/12/21] metoprolol succinate 25 mg tablet,extended release 24 hr 12.5 mg PO QPM 06/12/21 [History Confirmed 06/12/21] potassium chloride 10 mEq tablet,extended release 20 meq PO BID 06/12/21 [History Confirmed 06/12/21] rivaroxaban 20 mg tablet (Xarelto) 20 mg PO DAILY 06/12/21 [History Confirmed 06/12/21] tadalafil 20 mg tablet 20 mg PO DAILY 06/12/21 [History Confirmed 06/12/21] Visit Medications (administered) Generic Name Dose Route Start Last Admin Trade Name Freq PRN Reason Stop Dose Admin Sodium Chloride 10 ml 06/12/21 01:56 06/12/21 04:16 Sodium Chloride 0.9% Flush IV 10 ml PRN PRN Administration Flush Objective Labs Result Diagrams: 06/12/21 06:54 06/12/21 04:35 Labs: Laboratory Results - last 24 hr 06/11/21 06/11/21 06/11/21 19:01 19:01 19:12 WBC 8.9 RBC 3.81 L Hgb 10.0 L Hct 32.2 L MCV 84.6 MCH 26.2 MCHC 30.9 RDW 21.6 H Plt Count 345 Neut % (Auto) 74.4 Lymph % (Auto) 18.7 L [place] % (Auto) 6.4 Eos % (Auto) 0.2 L Baso % (Auto) 0.3 Neut # (Auto) 6600 Lymph # (Auto) 1700 [place] # (Auto) 600 Eos # (Auto) 0 Baso # (Auto) 0 RBC Morphology See below Dimorphic RBCs Present Polychromasia 2+ H Hypochromasia 1+ H Poikilocytosis 1+ H Anisocytosis Microcytosis 1+ H Macrocytosis 1+ H Target Cells PT INR APTT ABG pH ABG pCO2 ABG pO2 ABG HCO3 ABG Total CO2 ABG O2 Saturation ABG Base Excess FiO2 Sodium Potassium Chloride Carbon Dioxide BUN Creatinine Estimated GFR BUN/Creatinine Ratio Glucose Hemoglobin A1c Lactate Calcium Phosphorus Magnesium Total Bilirubin Conjugated Bilirubin Unconjugated Bilirubin GGT AST ALT Alkaline Phosphatase Ammonia Lactate Dehydrogenase Total Creatine Kinase CK-MB (CK-2) CK-MB (CK-2) Rel Index Troponin I NT-Pro-B Natriuret Pep Total Protein Albumin Globulin Albumin/Globulin Ratio Triglycerides Cholesterol LDL Cholesterol, Calc HDL Cholesterol Amylase Lipase Procalcitonin TSH Nasal Screen MRSA (PCR) U Opiates 300ng/mL cut Ur Oxycodone Screen Urine Methadone Screen Acetaminophen Ur Barbiturates Screen U Tricyclic Antidepress Ur Phencyclidine Scrn Ur Amphetamines Screen U Methamphetamines Scrn Ur MDMA Scrn (Ecstasy) U Benzodiazepines Scrn Urine Cocaine Screen U Marijuana (THC) Screen Chlamy pneumoniae PCR Not detected Adenovirus (PCR) Not detected B. pertussis DNA (PCR) Not detected B.parapertussis DNA PCR Not detected Coronavirus OC43 (PCR) Not detected Coronavirus HKU1 (PCR) Not detected Coronavirus 229E (PCR) Not detected SARS-CoV-2 (PCR) Negative Not detected Coronavirus NL63 (PCR) Not detected Human Metapneumovir PCR Not detected Influenza Type A (PCR) Not detected Influenza Type B (PCR) Not detected M. pneumoniae (PCR) Not detected Parainfluenza 1 (PCR) Not detected Parainfluenza 2 (PCR) Not detected Parainfluenza 3 (PCR) Not detected Parainfluenza 4 (PCR) Not detected RSV (PCR) Not detected Entero/Rhino (PCR) Not detected 06/11/21 06/11/21 06/11/21 19:12 19:12 19:12 WBC RBC Hgb Hct MCV MCH MCHC RDW Plt Count Neut % (Auto) Lymph % (Auto) [place] % (Auto) Eos % (Auto) Baso % (Auto) Neut # (Auto) Lymph # (Auto) [place] # (Auto) Eos # (Auto) Baso # (Auto) RBC Morphology Dimorphic RBCs Polychromasia Hypochromasia Poikilocytosis Anisocytosis Microcytosis Macrocytosis Target Cells PT INR APTT 46 H ABG pH ABG pCO2 ABG pO2 ABG HCO3 ABG Total CO2 ABG O2 Saturation ABG Base Excess FiO2 Sodium 139 Potassium 4.6 Chloride 98 Carbon Dioxide 9 L* BUN 20 H Creatinine 1.09 H Estimated GFR 49.1 L BUN/Creatinine Ratio 18.3 Glucose < 20 L* Hemoglobin A1c Lactate 14.3 H* Calcium 10.2 Phosphorus Magnesium Total Bilirubin 1.5 H Conjugated Bilirubin Unconjugated Bilirubin GGT AST 132 H ALT 52 H Alkaline Phosphatase 169 H Ammonia Lactate Dehydrogenase Total Creatine Kinase CK-MB (CK-2) CK-MB (CK-2) Rel Index Troponin I NT-Pro-B Natriuret Pep 06926 H Total Protein 8.1 Albumin 4.7 Globulin 3.4 Albumin/Globulin Ratio 1.4 Triglycerides Cholesterol LDL Cholesterol, Calc HDL Cholesterol Amylase Lipase 44 Procalcitonin TSH Nasal Screen MRSA (PCR) U Opiates 300ng/mL cut Ur Oxycodone Screen Urine Methadone Screen Acetaminophen Ur Barbiturates Screen U Tricyclic Antidepress Ur Phencyclidine Scrn Ur Amphetamines Screen U Methamphetamines Scrn Ur MDMA Scrn (Ecstasy) U Benzodiazepines Scrn Urine Cocaine Screen U Marijuana (THC) Screen Chlamy pneumoniae PCR Adenovirus (PCR) B. pertussis DNA (PCR) B.parapertussis DNA PCR Coronavirus OC43 (PCR) Coronavirus HKU1 (PCR) Coronavirus 229E (PCR) SARS-CoV-2 (PCR) Coronavirus NL63 (PCR) Human Metapneumovir PCR Influenza Type A (PCR) Influenza Type B (PCR) M. pneumoniae (PCR) Parainfluenza 1 (PCR) Parainfluenza 2 (PCR) Parainfluenza 3 (PCR) Parainfluenza 4 (PCR) RSV (PCR) Entero/Rhino (PCR) 06/11/21 06/11/21 06/11/21 19:12 19:12 19:12 WBC RBC Hgb Hct MCV MCH MCHC RDW Plt Count Neut % (Auto) Lymph % (Auto) [place] % (Auto) Eos % (Auto) Baso % (Auto) Neut # (Auto) Lymph # (Auto) [place] # (Auto) Eos # (Auto) Baso # (Auto) RBC Morphology Dimorphic RBCs Polychromasia Hypochromasia Poikilocytosis Anisocytosis Microcytosis Macrocytosis Target Cells PT 35.4 H INR 3.1 H APTT ABG pH ABG pCO2 ABG pO2 ABG HCO3 ABG Total CO2 ABG O2 Saturation ABG Base Excess FiO2 Sodium Potassium Chloride Carbon Dioxide BUN Creatinine Estimated GFR BUN/Creatinine Ratio Glucose Hemoglobin A1c Lactate Calcium Phosphorus Magnesium 2.1 Total Bilirubin Conjugated Bilirubin Unconjugated Bilirubin GGT AST ALT Alkaline Phosphatase Ammonia Lactate Dehydrogenase Total Creatine Kinase 98 CK-MB (CK-2) TNP CK-MB (CK-2) Rel Index TNP Troponin I 0.021 NT-Pro-B Natriuret Pep Total Protein Albumin Globulin Albumin/Globulin Ratio Triglycerides Cholesterol LDL Cholesterol, Calc HDL Cholesterol Amylase Lipase Procalcitonin 0.31 TSH Nasal Screen MRSA (PCR) U Opiates 300ng/mL cut Ur Oxycodone Screen Urine Methadone Screen Acetaminophen Ur Barbiturates Screen U Tricyclic Antidepress Ur Phencyclidine Scrn Ur Amphetamines Screen U Methamphetamines Scrn Ur MDMA Scrn (Ecstasy) U Benzodiazepines Scrn Urine Cocaine Screen U Marijuana (THC) Screen Chlamy pneumoniae PCR Adenovirus (PCR) B. pertussis DNA (PCR) B.parapertussis DNA PCR Coronavirus OC43 (PCR) Coronavirus HKU1 (PCR) Coronavirus 229E (PCR) SARS-CoV-2 (PCR) Coronavirus NL63 (PCR) Human Metapneumovir PCR Influenza Type A (PCR) Influenza Type B (PCR) M. pneumoniae (PCR) Parainfluenza 1 (PCR) Parainfluenza 2 (PCR) Parainfluenza 3 (PCR) Parainfluenza 4 (PCR) RSV (PCR) Entero/Rhino (PCR) 06/11/21 06/11/21 06/11/21 19:12 19:12 19:12 WBC RBC Hgb Hct MCV MCH MCHC RDW Plt Count Neut % (Auto) Lymph % (Auto) [place] % (Auto) Eos % (Auto) Baso % (Auto) Neut # (Auto) Lymph # (Auto) [place] # (Auto) Eos # (Auto) Baso # (Auto) RBC Morphology Dimorphic RBCs Polychromasia Hypochromasia Poikilocytosis Anisocytosis Microcytosis Macrocytosis Target Cells PT INR APTT ABG pH ABG pCO2 ABG pO2 ABG HCO3 ABG Total CO2 ABG O2 Saturation ABG Base Excess FiO2 Sodium Potassium Chloride Carbon Dioxide BUN Creatinine Estimated GFR BUN/Creatinine Ratio Glucose Hemoglobin A1c 4.9 Lactate Calcium Phosphorus Magnesium Total Bilirubin Conjugated Bilirubin Unconjugated Bilirubin GGT AST ALT Alkaline Phosphatase Ammonia Lactate Dehydrogenase Total Creatine Kinase CK-MB (CK-2) CK-MB (CK-2) Rel Index Troponin I NT-Pro-B Natriuret Pep Total Protein Albumin Globulin Albumin/Globulin Ratio Triglycerides Cholesterol LDL Cholesterol, Calc HDL Cholesterol Amylase Lipase Procalcitonin TSH 7.59 H Nasal Screen MRSA (PCR) U Opiates 300ng/mL cut Ur Oxycodone Screen Urine Methadone Screen Acetaminophen < 10 L Ur Barbiturates Screen U Tricyclic Antidepress Ur Phencyclidine Scrn Ur Amphetamines Screen U Methamphetamines Scrn Ur MDMA Scrn (Ecstasy) U Benzodiazepines Scrn Urine Cocaine Screen U Marijuana (THC) Screen Chlamy pneumoniae PCR Adenovirus (PCR) B. pertussis DNA (PCR) B.parapertussis DNA PCR Coronavirus OC43 (PCR) Coronavirus HKU1 (PCR) Coronavirus 229E (PCR) SARS-CoV-2 (PCR) Coronavirus NL63 (PCR) Human Metapneumovir PCR Influenza Type A (PCR) Influenza Type B (PCR) M. pneumoniae (PCR) Parainfluenza 1 (PCR) Parainfluenza 2 (PCR) Parainfluenza 3 (PCR) Parainfluenza 4 (PCR) RSV (PCR) Entero/Rhino (PCR) 06/11/21 06/12/21 06/12/21 21:47 00:53 00:53 WBC RBC Hgb Hct MCV MCH MCHC RDW Plt Count Neut % (Auto) Lymph % (Auto) [place] % (Auto) Eos % (Auto) Baso % (Auto) Neut # (Auto) Lymph # (Auto) [place] # (Auto) Eos # (Auto) Baso # (Auto) RBC Morphology Dimorphic RBCs Polychromasia Hypochromasia Poikilocytosis Anisocytosis Microcytosis Macrocytosis Target Cells PT INR APTT ABG pH ABG pCO2 ABG pO2 ABG HCO3 ABG Total CO2 ABG O2 Saturation ABG Base Excess FiO2 Sodium Potassium Chloride Carbon Dioxide BUN Creatinine Estimated GFR BUN/Creatinine Ratio Glucose Hemoglobin A1c Lactate 11.7 H* Calcium Phosphorus Magnesium Total Bilirubin Conjugated Bilirubin Unconjugated Bilirubin GGT AST ALT Alkaline Phosphatase Ammonia < 9 L Lactate Dehydrogenase 3018 H Total Creatine Kinase CK-MB (CK-2) CK-MB (CK-2) Rel Index Troponin I NT-Pro-B Natriuret Pep Total Protein Albumin Globulin Albumin/Globulin Ratio Triglycerides 35 Cholesterol 101 L LDL Cholesterol, Calc 44 HDL Cholesterol 50 Amylase 90 Lipase Procalcitonin TSH Nasal Screen MRSA (PCR) U Opiates 300ng/mL cut Ur Oxycodone Screen Urine Methadone Screen Acetaminophen Ur Barbiturates Screen U Tricyclic Antidepress Ur Phencyclidine Scrn Ur Amphetamines Screen U Methamphetamines Scrn Ur MDMA Scrn (Ecstasy) U Benzodiazepines Scrn Urine Cocaine Screen U Marijuana (THC) Screen Chlamy pneumoniae PCR Adenovirus (PCR) B. pertussis DNA (PCR) B.parapertussis DNA PCR Coronavirus OC43 (PCR) Coronavirus HKU1 (PCR) Coronavirus 229E (PCR) SARS-CoV-2 (PCR) Coronavirus NL63 (PCR) Human Metapneumovir PCR Influenza Type A (PCR) Influenza Type B (PCR) M. pneumoniae (PCR) Parainfluenza 1 (PCR) Parainfluenza 2 (PCR) Parainfluenza 3 (PCR) Parainfluenza 4 (PCR) RSV (PCR) Entero/Rhino (PCR) 06/12/21 06/12/21 06/12/21 00:53 01:03 01:45 WBC RBC Hgb Hct MCV MCH MCHC RDW Plt Count Neut % (Auto) Lymph % (Auto) [place] % (Auto) Eos % (Auto) Baso % (Auto) Neut # (Auto) Lymph # (Auto) [place] # (Auto) Eos # (Auto) Baso # (Auto) RBC Morphology Dimorphic RBCs Polychromasia Hypochromasia Poikilocytosis Anisocytosis Microcytosis Macrocytosis Target Cells PT INR APTT ABG pH 7.40 ABG pCO2 25.0 L ABG pO2 79 L ABG HCO3 15 L ABG Total CO2 16 L ABG O2 Saturation 96 ABG Base Excess -9.0 L FiO2 32 Sodium Potassium Chloride Carbon Dioxide BUN Creatinine Estimated GFR BUN/Creatinine Ratio Glucose Hemoglobin A1c Lactate Calcium Phosphorus 5.1 H Magnesium Total Bilirubin Conjugated Bilirubin Unconjugated Bilirubin GGT AST ALT Alkaline Phosphatase Ammonia Lactate Dehydrogenase Total Creatine Kinase CK-MB (CK-2) CK-MB (CK-2) Rel Index Troponin I NT-Pro-B Natriuret Pep Total Protein Albumin Globulin Albumin/Globulin Ratio Triglycerides Cholesterol LDL Cholesterol, Calc HDL Cholesterol Amylase Lipase Procalcitonin TSH Nasal Screen MRSA (PCR) Negative for mrsa U Opiates 300ng/mL cut Ur Oxycodone Screen Urine Methadone Screen Acetaminophen Ur Barbiturates Screen U Tricyclic Antidepress Ur Phencyclidine Scrn Ur Amphetamines Screen U Methamphetamines Scrn Ur MDMA Scrn (Ecstasy) U Benzodiazepines Scrn Urine Cocaine Screen U Marijuana (THC) Screen Chlamy pneumoniae PCR Adenovirus (PCR) B. pertussis DNA (PCR) B.parapertussis DNA PCR Coronavirus OC43 (PCR) Coronavirus HKU1 (PCR) Coronavirus 229E (PCR) SARS-CoV-2 (PCR) Coronavirus NL63 (PCR) Human Metapneumovir PCR Influenza Type A (PCR) Influenza Type B (PCR) M. pneumoniae (PCR) Parainfluenza 1 (PCR) Parainfluenza 2 (PCR) Parainfluenza 3 (PCR) Parainfluenza 4 (PCR) RSV (PCR) Entero/Rhino (PCR) 06/12/21 06/12/21 06/12/21 02:00 02:04 04:35 WBC 9.3 RBC 2.74 L Hgb 7.2 L Hct 22.0 L MCV 80.4 D MCH 26.3 MCHC 32.7 RDW 20.7 H Plt Count 245 Neut % (Auto) 83.1 H Lymph % (Auto) 10.2 L [place] % (Auto) 6.6 Eos % (Auto) 0.0 L Baso % (Auto) 0.1 Neut # (Auto) 7800 H Lymph # (Auto) 1000 L [place] # (Auto) 600 Eos # (Auto) 0 Baso # (Auto) 0 RBC Morphology See below Dimorphic RBCs Polychromasia Hypochromasia 1+ H Poikilocytosis Anisocytosis 2+ H Microcytosis Macrocytosis Target Cells 1+ H PT INR APTT ABG pH ABG pCO2 ABG pO2 ABG HCO3 ABG Total CO2 ABG O2 Saturation ABG Base Excess FiO2 Sodium Potassium Chloride Carbon Dioxide BUN Creatinine Estimated GFR BUN/Creatinine Ratio Glucose Hemoglobin A1c Lactate 5.6 H* Calcium Phosphorus Magnesium Total Bilirubin Conjugated Bilirubin Unconjugated Bilirubin GGT AST ALT Alkaline Phosphatase Ammonia Lactate Dehydrogenase Total Creatine Kinase CK-MB (CK-2) CK-MB (CK-2) Rel Index Troponin I NT-Pro-B Natriuret Pep Total Protein Albumin Globulin Albumin/Globulin Ratio Triglycerides Cholesterol LDL Cholesterol, Calc HDL Cholesterol Amylase Lipase Procalcitonin TSH Nasal Screen MRSA (PCR) U Opiates 300ng/mL cut Negative Ur Oxycodone Screen Negative Urine Methadone Screen Negative Acetaminophen Ur Barbiturates Screen Negative U Tricyclic Antidepress Negative Ur Phencyclidine Scrn Negative Ur Amphetamines Screen Negative U Methamphetamines Scrn Negative Ur MDMA Scrn (Ecstasy) Negative U Benzodiazepines Scrn Negative Urine Cocaine Screen Negative U Marijuana (THC) Screen Negative Chlamy pneumoniae PCR Adenovirus (PCR) B. pertussis DNA (PCR) B.parapertussis DNA PCR Coronavirus OC43 (PCR) Coronavirus HKU1 (PCR) Coronavirus 229E (PCR) SARS-CoV-2 (PCR) Coronavirus NL63 (PCR) Human Metapneumovir PCR Influenza Type A (PCR) Influenza Type B (PCR) M. pneumoniae (PCR) Parainfluenza 1 (PCR) Parainfluenza 2 (PCR) Parainfluenza 3 (PCR) Parainfluenza 4 (PCR) RSV (PCR) Entero/Rhino (PCR) 06/12/21 06/12/21 06/12/21 04:35 04:35 04:35 WBC RBC Hgb Hct MCV MCH MCHC RDW Plt Count Neut % (Auto) Lymph % (Auto) [place] % (Auto) Eos % (Auto) Baso % (Auto) Neut # (Auto) Lymph # (Auto) [place] # (Auto) Eos # (Auto) Baso # (Auto) RBC Morphology Dimorphic RBCs Polychromasia Hypochromasia Poikilocytosis Anisocytosis Microcytosis Macrocytosis Target Cells PT 34.4 H INR 3.0 H APTT 47 H ABG pH ABG pCO2 ABG pO2 ABG HCO3 ABG Total CO2 ABG O2 Saturation ABG Base Excess FiO2 Sodium 134 L Potassium 4.1 Chloride 100 Carbon Dioxide 23 BUN 28 H Creatinine 0.98 Estimated GFR 55.5 L BUN/Creatinine Ratio 28.6 H Glucose 92 Hemoglobin A1c Lactate Calcium 8.8 Phosphorus Magnesium 1.6 Total Bilirubin 0.6 Conjugated Bilirubin Unconjugated Bilirubin GGT 90 H AST 802 H ALT 276 H Alkaline Phosphatase 112 D Ammonia Lactate Dehydrogenase Total Creatine Kinase CK-MB (CK-2) CK-MB (CK-2) Rel Index Troponin I 0.044 H NT-Pro-B Natriuret Pep 68003 H Total Protein 6.0 L Albumin 3.4 L Globulin 2.6 Albumin/Globulin Ratio 1.3 Triglycerides Cholesterol LDL Cholesterol, Calc HDL Cholesterol Amylase Lipase Procalcitonin TSH 3.77 D Nasal Screen MRSA (PCR) U Opiates 300ng/mL cut Ur Oxycodone Screen Urine Methadone Screen Acetaminophen Ur Barbiturates Screen U Tricyclic Antidepress Ur Phencyclidine Scrn Ur Amphetamines Screen U Methamphetamines Scrn Ur MDMA Scrn (Ecstasy) U Benzodiazepines Scrn Urine Cocaine Screen U Marijuana (THC) Screen Chlamy pneumoniae PCR Adenovirus (PCR) B. pertussis DNA (PCR) B.parapertussis DNA PCR Coronavirus OC43 (PCR) Coronavirus HKU1 (PCR) Coronavirus 229E (PCR) SARS-CoV-2 (PCR) Coronavirus NL63 (PCR) Human Metapneumovir PCR Influenza Type A (PCR) Influenza Type B (PCR) M. pneumoniae (PCR) Parainfluenza 1 (PCR) Parainfluenza 2 (PCR) Parainfluenza 3 (PCR) Parainfluenza 4 (PCR) RSV (PCR) Entero/Rhino (PCR) 06/12/21 06/12/21 06/12/21 04:35 04:35 06:54 WBC RBC Hgb Hct MCV MCH MCHC RDW Plt Count Neut % (Auto) Lymph % (Auto) [place] % (Auto) Eos % (Auto) Baso % (Auto) Neut # (Auto) Lymph # (Auto) [place] # (Auto) Eos # (Auto) Baso # (Auto) RBC Morphology Dimorphic RBCs Polychromasia Hypochromasia Poikilocytosis Anisocytosis Microcytosis Macrocytosis Target Cells PT 40.9 H D INR 3.5 H APTT 68 H D ABG pH ABG pCO2 ABG pO2 ABG HCO3 ABG Total CO2 ABG O2 Saturation ABG Base Excess FiO2 Sodium Potassium Chloride Carbon Dioxide BUN Creatinine Estimated GFR BUN/Creatinine Ratio Glucose Hemoglobin A1c Lactate 2.4 H Calcium Phosphorus Magnesium Total Bilirubin 0.5 Conjugated Bilirubin 0.0 Unconjugated Bilirubin 0.3 GGT AST 780 H ALT 283 H Alkaline Phosphatase 105 Ammonia Lactate Dehydrogenase Total Creatine Kinase CK-MB (CK-2) CK-MB (CK-2) Rel Index Troponin I NT-Pro-B Natriuret Pep Total Protein 6.0 L Albumin 3.3 L Globulin 2.7 Albumin/Globulin Ratio 1.2 Triglycerides Cholesterol LDL Cholesterol, Calc HDL Cholesterol Amylase Lipase Procalcitonin TSH Nasal Screen MRSA (PCR) U Opiates 300ng/mL cut Ur Oxycodone Screen Urine Methadone Screen Acetaminophen Ur Barbiturates Screen U Tricyclic Antidepress Ur Phencyclidine Scrn Ur Amphetamines Screen U Methamphetamines Scrn Ur MDMA Scrn (Ecstasy) U Benzodiazepines Scrn Urine Cocaine Screen U Marijuana (THC) Screen Chlamy pneumoniae PCR Adenovirus (PCR) B. pertussis DNA (PCR) B.parapertussis DNA PCR Coronavirus OC43 (PCR) Coronavirus HKU1 (PCR) Coronavirus 229E (PCR) SARS-CoV-2 (PCR) Coronavirus NL63 (PCR) Human Metapneumovir PCR Influenza Type A (PCR) Influenza Type B (PCR) M. pneumoniae (PCR) Parainfluenza 1 (PCR) Parainfluenza 2 (PCR) Parainfluenza 3 (PCR) Parainfluenza 4 (PCR) RSV (PCR) Entero/Rhino (PCR) 06/12/21 06/12/21 06:54 06:59 WBC 9.0 RBC 2.82 L Hgb 7.4 L Hct 22.8 L MCV 81.0 MCH 26.2 MCHC 32.3 RDW 20.6 H Plt Count 251 Neut % (Auto) 80.4 H Lymph % (Auto) 12.9 L [place] % (Auto) 6.5 Eos % (Auto) 0.0 L Baso % (Auto) 0.2 Neut # (Auto) 7300 H Lymph # (Auto) 1200 [place] # (Auto) 600 Eos # (Auto) 0 Baso # (Auto) 0 RBC Morphology Not Reportable Dimorphic RBCs Polychromasia Hypochromasia 1+ H Poikilocytosis 1+ H Anisocytosis 2+ H Microcytosis Macrocytosis Target Cells PT INR APTT ABG pH ABG pCO2 ABG pO2 ABG HCO3 ABG Total CO2 ABG O2 Saturation ABG Base Excess FiO2 Sodium Potassium Chloride Carbon Dioxide BUN Creatinine Estimated GFR BUN/Creatinine Ratio Glucose Hemoglobin A1c Lactate Calcium Phosphorus Magnesium Total Bilirubin 0.6 Conjugated Bilirubin 0.0 Unconjugated Bilirubin 0.3 GGT AST 805 H ALT 265 H Alkaline Phosphatase 108 Ammonia Lactate Dehydrogenase Total Creatine Kinase CK-MB (CK-2) CK-MB (CK-2) Rel Index Troponin I NT-Pro-B Natriuret Pep Total Protein 6.7 Albumin 4.1 Globulin 2.6 Albumin/Globulin Ratio 1.6 Triglycerides Cholesterol LDL Cholesterol, Calc HDL Cholesterol Amylase Lipase Procalcitonin TSH Nasal Screen MRSA (PCR) U Opiates 300ng/mL cut Ur Oxycodone Screen Urine Methadone Screen Acetaminophen Ur Barbiturates Screen U Tricyclic Antidepress Ur Phencyclidine Scrn Ur Amphetamines Screen U Methamphetamines Scrn Ur MDMA Scrn (Ecstasy) U Benzodiazepines Scrn Urine Cocaine Screen U Marijuana (THC) Screen Chlamy pneumoniae PCR Adenovirus (PCR) B. pertussis DNA (PCR) B.parapertussis DNA PCR Coronavirus OC43 (PCR) Coronavirus HKU1 (PCR) Coronavirus 229E (PCR) SARS-CoV-2 (PCR) Coronavirus NL63 (PCR) Human Metapneumovir PCR Influenza Type A (PCR) Influenza Type B (PCR) M. pneumoniae (PCR) Parainfluenza 1 (PCR) Parainfluenza 2 (PCR) Parainfluenza 3 (PCR) Parainfluenza 4 (PCR) RSV (PCR) Entero/Rhino (PCR) Exam Vital Signs (past 8 hours): - 06/12/21 03:13 06/12/21 03:30 06/12/21 03:57 Temperature 97.3 F L 97.3 F L 97.2 F L Pulse Rate 97 H 95 H 96 H Respiratory Rate 15 15 17 Blood Pressure 89/55 L Pulse Oximetry 93 94 89 L 06/12/21 04:00 06/12/21 04:15 06/12/21 04:30 Temperature 97.5 F L 97.5 F L 97.5 F L Pulse Rate 98 H 92 H 91 H Respiratory Rate 15 14 14 Blood Pressure 89/63 L 93/65 103/58 L Pulse Oximetry 81 L 100 99 06/12/21 04:45 06/12/21 05:00 06/12/21 05:03 Temperature 97.5 F L 97.5 F L 97.5 F L Pulse Rate 90 96 H 100 H Respiratory Rate 13 13 20 Blood Pressure 118/75 86/54 L 89/69 L Pulse Oximetry 92 76 L 90 L 06/12/21 05:15 06/12/21 05:30 06/12/21 05:45 Temperature 97.5 F L 97.7 F 97.7 F Pulse Rate 100 H 96 H 93 H Respiratory Rate 16 13 12 Blood Pressure 90/64 102/61 96/54 L Pulse Oximetry 96 92 87 L 06/12/21 06:00 06/12/21 06:15 06/12/21 06:30 Temperature 97.9 F 98.2 F 98.4 F Pulse Rate 95 H 96 H 112 H Respiratory Rate 13 14 15 Blood Pressure 88/61 L 88/73 L 95/78 Pulse Oximetry 85 L 89 L 86 L 06/12/21 06:45 06/12/21 07:00 06/12/21 07:15 Temperature 98.4 F 98.6 F 98.6 F Pulse Rate 108 H 107 H 107 H Respiratory Rate 19 17 17 Blood Pressure 92/71 91/71 91/72 Pulse Oximetry 90 L 97 99 06/12/21 07:30 06/12/21 07:45 06/12/21 08:00 Temperature 98.8 F 98.8 F 99.0 F Pulse Rate 104 H 113 H 108 H Respiratory Rate 19 18 16 Blood Pressure 94/65 96/66 107/62 Pulse Oximetry 96 92 94 Oxygen Delivery Method Nasal Cannula Oxygen Flow Rate 3 Quality TeleICU VTE Deep Vein Thrombosis/Pulmonary Embolism Present on Admission: No Assessment & Plan Assessment & Plan narrative: patient seen and examined chart/labs/imaging reviewed no new complains, mild back pain no signs of active bleeding noted by staff, no melena/hematochezia pt is AnOx3, afebrile, tachycardic, borderline bp, sats improved on3lnc adequate urine output no vasopressors HnH droped for 10to 7 lactate improved LFTs elevated severe sepsis likely 2/2 to intrabominal sourse anemia likey dilutional vs bleeding vs other HAGMA hepatitis plan -stop heparin -repeat cbc stat, if lower would give at least 2 units of prbc and 2 ffp, vitamin K -would repeat ct ab/pelvis to rule out retroperitoneal bleed -broad sepc abx, follow cxs -repeat LFTs, if rising can consider MRPC vs RUQ duplex to eval for hepatic vasculature -sugest eval pending -ppi bid -cautious hydration -would keep npo for now -replace lytes prn -keep glucose 140-180 -gi/dvt ppx -echo pending ? Plan was discussed bedside providers and nursing staff Time Spent With Patient Critical Care time: I spent a total of [] minutes of critical care time on this patient's care today; this time is exclusive of procedural time.
[2021-06-12] MEDS: PIPERACILLIN/TAZO 3.375 GM in SODIUM CHLORIDE 0.9% 100 ML 25 ML IV ×2 (10:28→17:25)
[2021-06-12] MEDS: DULOXETINE 20 MG CAPSULE PO (10:28)
[2021-06-12] MEDS: PANTOPRAZOLE 40 MG VIAL IV ×2 (10:28→20:38)
[2021-06-12] MEDS: FLECAINIDE 100 MG TABLET 50 MG PO ×2 (10:29→20:37)
[2021-06-12] MEDS: VANCOMYCIN 750 MG/150 ML PIGGYBACK 150 MG IV ×2 (10:31→21:17)
[2021-06-12 11:28] LABS: Add Manual Diff / Slide Review NO; Basophils Absolute Auto 0 /uL (0-100); Basophils Percent Auto 0.3 % (0-2); Eosinophils Absolute Auto 0 /uL (0-450); Hemoglobin 7.2 g/dL (12.0-16.0); Lymphocytes Absolute Auto 1100 /uL (1100-4500); Lymphocytes Percent Auto 11.7 % (25-40); Mean Corpuscular HGB Conc 32.7 % (30-36); Mean Corpuscular Hemoglobin 26.5 PG (26-34); Monocytes Absolute Auto 500 /uL (0-900); Monocytes Percent Auto 6.1 % (3-14); Neutrophils Absolute Auto 7400 /uL (1500-7000); Neutrophils Percent Auto 81.9 % (50-75); Platelet Count 249 X10^3/uL (150-400); Red Blood Cell Count 2.72 X10^6/uL (4.0-5.2); Red Cell Distribution Width 20.7 % (11.6-14.8)
[2021-06-12] MEDS: MAGNESIUM SULFATE 2 GM/50 ML PIGGYBACK IV (12:08)
[2021-06-12 12:15] LABS: Anisocytosis 2+; Hypochromasia 1+
[2021-06-12 12:16] LABS: Poikilocytosis 1+
[2021-06-12 12:33] LABS: PTT Partial Thromboplastin Tim 43 SECONDS (26.4-36.2)
--- NOTE | 2021-06-12 13:37 | DI.CT.S_ITS ---
PROCEDURE: CT ABDOMEN PELVIS WO CON INDICATIONS: r/o retroperitoneal bleed TECHNIQUE: After the administration of oral contrast, 5 mm thick sections acquired from the diaphragms to the symphysis. 5 mm coronal and sagittal reformats were performed. For radiation dose reduction, the following was used: automated exposure control, adjustment of mA and/or kV according to patient size. COMPARISON: [facility], US, US ABDOMEN LIMITED, 06/11/2021, 22:59. [facility], CT, CT ANGIO ABDOMEN PELVIS, 06/11/2021, 20:12. [facility], CT, CT ANGIO CHEST PE PROTOCOL, 06/11/2021, 20:12. FINDINGS: Image quality: Excellent. ABDOMEN: Lung bases: Bilateral small pleural effusions, right greater than left. Bibasilar consolidation or atelectasis.. Heart size is mildly increased. Distal esophageal is distended with oral contrast consistent with gastroesophageal reflux. Small hiatal hernia. There is thickening at the GE junction. Solid organs: Liver is normal in size. Nodular contour of liver suggesting cirrhosis. Gallbladder wall appears mildly thickened, but gallbladder is contracted. There is a small amount of pericholecystic fluid. Pancreas is normal in size. Spleen is normal in size. No adrenal nodules. Both kidneys are normal in size, without hydronephrosis or nephrolithiasis. Peritoneum and bowel: Duodenum is thickened. Bowel loops demonstrate normal wall thickness and caliber. No free air. There is a hgywk-bh-jdfalssa amount of free fluid, similar when compared to the last exam. Nodes and vessels: No retroperitoneal or mesenteric adenopathy by size criteria. Aorta and inferior vena cava are normal in size. Miscellaneous: No ventral hernias. Diffuse body wall edema consistent with anasarca. PELVIS: Genitourinary: Bladder wall thickness is normal. Miscellaneous: No inguinal hernias or adenopathy. Bones: Scoliosis and degenerative changes in the lower thoracic spine and lumbar spine. No vertebral body compression fractures. IMPRESSION: 1. No findings to suggest retroperitoneal hematoma. 2. Small pleural effusions bilaterally and bibasilar consolidation or atelectasis. 3. Nodular contour liver suggesting cirrhosis. 4. Distended distal esophagus with oral contrast consistent with gastroesophageal reflux. GE junction appears thickened. Recommend EGD for follow-up evaluation to rule out GE junction mass. 5. There is duodenal thickening consistent with duodenitis. 6. A aocfl-ay-hhfyasuo amount of ascites. 7. Moderate cardiomegaly. Dictated by: Ruth Tyson M.D. on 06/12/2021 at 15:17 Approved by: Ruth Tyson M.D. on 06/12/2021 at 15:29
--- NOTE | 2021-06-12 15:25 | CM.IDA ---
Addendum entered by Eva Rosario 06/16/21 15:16: Reviewed chart. Patient discharging from [facility] today. Met with patient and spouse both report that patient will be okay at home. Patient refusing HH at this time. Patient reports that she will be seeing her PCP at the end of the week. If for any reason she changes her mind about HH she can let them know. Spouse and patient requesting that patient get FWW for home use. Order obtained. P: Home today. FWW provided upon d/c by therapy. KJS Original Note: Initial DCP Assessment Note Pt is a 75 yo female, resident of [facility], arrives w/chest pain, distended belly, extremity tremors. Admitted to the ICU for Acute respiratory failure with hypoxia and hypocapnia, with encephalopathy, resulting in STEPHENIE, Lactic acidosis, CHF exacerbation PCP: Norma Sauer Payer: MAGDALENA/CARMELLA Elena Reviewed chart, met w/patient and spouse, introduced role. Patient/spouse live in [place], have been for 50+ years. Patient's adult children live out of the area. Patient reports that spouse takes care of stock layer, cooks, and assists w/ ADLs; patient admits she has needed increased assist, especially w/toileting, w/in the last few weeks. Patient is A+O, talkative, spirits are high. States she would consider going to rehab if recommended. Discussed Home health services as well. This RN ENDOSCOPY suggested waiting for medical plan of care to unfold before discussing DCP options further and patient/spouse agree and appreciative of visit. Contact information left DCP team will plan to follow closely and will remain available for DC planning/coordination as medical POC unfolds. SOILA Mcmahon Discharge Planning/Care Management CM Discharge Assessment Start: 06/12/21 14:56 Freq: Status: Active Protocol: Document 06/12/21 14:56 JOHNNIE (Rec: 06/12/21 15:24 JOHNNIE [id number]) Discharge Planning Assessment Assigned [employer]inct Commanding Officer SOILA Recio DPOA/Assigned Designee Name Dale Villegas, spouse Contact Information [phone] Advance Directives? Yes Advance Directives on File No History Provided By Patient,Significant Other Prior Living Arrangements House Household Members spouse Type of transporation used prior to Relies on Others admit Independent with ADL's Yes: Requires assist with ADLs recently Is patient alert and oriented? Yes Needs Assistance With Grooming,Meal Prep,Toileting, Managing Medications,Home Chores / Shopping Patient/Family Preference Home with Home Health Barriers to Discharge Yes Comment Medical plan of care still unfolding Discharge Plan Home with Home Health Transportation Arrangement TBD Additional Comment HH vs SNF Whiteboard Updated in Patient Room with Yes name and ext. # of Precinct Commanding Officer
[2021-06-12] MEDS: METOPROLOL ER 25 MG TABLET PO (17:26)
[2021-06-12 18:14] LABS: Hematocrit 23.9 % (36-46); Hemoglobin 7.6 g/dL (12.0-16.0)
--- NOTE | 2021-06-12 19:18 | TAR.TRANSNT ---
Patient with orders for transfusing FFP. Per blood bank will have to over ride the product scan and expiration date. Patient tolerated first 15min of transfusion.
[2021-06-12] MEDS: MELATONIN 3 MG TABLET 6 MG PO (21:16)
[2021-06-12] MEDS: BACLOFEN 10 MG TABLET PO (22:38)
[2021-06-13] VITALS (18 sets, daily range): BP systolic 81–114; BP diastolic 52–70; PULSE 94–114; RESP 13–26; TEMP 36.5–37.2; O2SAT 94–99
[2021-06-13] MEDS: PIPERACILLIN/TAZO 3.375 GM in SODIUM CHLORIDE 0.9% 100 ML 25 ML IV ×3 (00:33→18:05)
[2021-06-13 00:56] LABS: HCO3 ABG 13 mmol/L (22-26); PCO2 ABG 20.6 mmHg (35-45); PO2 ABG 81 mmHg (80-100); pH ABG 7.42 (7.35-7.45)
[2021-06-13 00:57] LABS: Oxygen Saturation ABG 96 % (95-100); TCO2 ABG 14 mmol/L (21-31)
[2021-06-13 00:58] LABS: Fractionated Inspired Oxygen 32
[2021-06-13 02:35] LABS: HBsAg Screen Negative (Negative); Hepatitis A Antibody IgM Negative (Negative); Hepatitis B Core Antibody IgM Negative (Negative); Hepatitis C Antibody <0.1 s/co ratio (0.0-0.9)
[2021-06-13 04:53] LABS: Add Manual Diff / Slide Review NO; Basophils Absolute Auto 0 /uL (0-100); Basophils Percent Auto 0.1 % (0-2); Eosinophils Absolute Auto 0 /uL (0-450); Hemoglobin 7.5 g/dL (12.0-16.0); Lymphocytes Absolute Auto 900 /uL (1100-4500); Lymphocytes Percent Auto 8.6 % (25-40); Mean Corpuscular HGB Conc 32.3 % (30-36); Mean Corpuscular Hemoglobin 26.1 PG (26-34); Mean Corpuscular Volume 80.9 fL (80-100); Monocytes Absolute Auto 900 /uL (0-900); Monocytes Percent Auto 8.4 % (3-14); Neutrophils Absolute Auto 9100 /uL (1500-7000); Neutrophils Percent Auto 82.9 % (50-75); Platelet Count 238 X10^3/uL (150-400); Red Blood Cell Count 2.88 X10^6/uL (4.0-5.2); Red Cell Distribution Width 21.5 % (11.6-14.8)
[2021-06-13 05:01] LABS: Lactate (Lactic Acid) 2.4 mmol/L (0.7-2.1)
[2021-06-13 05:02] LABS: Magnesium 2.1 mg/dL (1.6-2.3)
[2021-06-13 05:03] LABS: Alanine Aminotransferase 274 IU/L (<35); Albumin 3.6 g/dL (3.5-5.0); Albumin Globulin Ratio 1.4 (1.0-2.8); Alkaline Phosphatase 104 U/L (38-126); Aspartate Aminotransferase 713 IU/L (14-36); Bilirubin Total 0.9 mg/dL (0.2-1.3); Blood Urea Nitrogen 36 mg/dL (7-17); Calcium 8.7 mg/dL (8.4-10.2); Carbon Dioxide 20 mmol/L (22-32); Chloride 101 mmol/L (98-107); Estimated Glomerular Filt Rate 42.3 mL/min (>60); Globulin 2.5 g/dL (1.7-4.1); Glucose 89 mg/dL (80-110); HEMOLYSIS < 15 (0-50); Potassium 3.6 mmol/L (3.4-5.1); Sodium 135 mmol/L (137-145); Total Protein 6.1 g/dL (6.3-8.2)
[2021-06-13 05:04] LABS: Hematocrit 23.3 % (36-46)
[2021-06-13 05:11] LABS: NT-proBNP (BNP-Adult 18+) 18300 pg/mL (<125)
[2021-06-13 05:15] LABS: Troponin I 0.031 ng/mL (0.01-0.034)
[2021-06-13 05:47] LABS: Anisocytosis 2+; Hypochromasia 1+; Polychromasia 1+
[2021-06-13 06:34] LABS: Reflexed Lactate in 2 Hours Y
[2021-06-13 07:25] LABS: Lactate 2HR (Lactic Acid Rflx) 1.9 mmol/L (0.7-2.1)
[2021-06-13] MEDS: PANTOPRAZOLE 40 MG VIAL IV ×2 (08:37→21:16)
[2021-06-13] MEDS: SODIUM CHLORIDE 0.9% FLUSH 10 ML IV ×2 (08:39→22:33)
[2021-06-13] MEDS: METOPROLOL ER 25 MG TABLET PO (08:41)
[2021-06-13] MEDS: FLECAINIDE 100 MG TABLET 50 MG PO ×2 (08:41→21:16)
[2021-06-13] MEDS: DULOXETINE 20 MG CAPSULE PO (08:50)
[2021-06-13] MEDS: VANCOMYCIN 750 MG/150 ML PIGGYBACK 150 MG IV (11:05)
[2021-06-13] MEDS: VANCOMYCIN TROUGH 1 REQUEST MISC (11:05)
--- NOTE | 2021-06-13 11:35 | DI.RAD.S_ITS ---
PROCEDURE: XR CHEST 1V INDICATIONS: shortness of breath, tachypnea TECHNIQUE: One view of the chest was acquired. COMPARISON: [facility], CT, CT ANGIO CHEST PE PROTOCOL, 06/11/2021, 20:12. [facility], CR, XR CHEST 1V, 06/11/2021, 18:51. [facility], CR, XR CHEST 1V, 06/12/2021, 3:40. FINDINGS: Surgical changes and devices: There is a stable right-sided central line. Lungs and pleura: Small bilateral pleural effusions are seen. No pneumothorax can be seen on this semiupright study. Mild generalized interstitial prominence can be seen. Mediastinum: The cardiac contours are moderately enlarged. The aorta demonstrates calcification and tortuosity. Bones and chest wall: No suspicious bony lesions. Age-appropriate bony degenerative changes are seen. Overlying soft tissues appear unremarkable. IMPRESSION: Stable bilateral interstitial prominence with small bilateral pleural effusions. CHF is suspected. Dictated by: Misael Urban M.D. on 06/13/2021 at 11:12 Approved by: Misael Urban M.D. on 06/13/2021 at 11:14
[2021-06-13 12:01] LABS: Cortisol Basline for Stim. 30.5 ug/dL
[2021-06-13] MEDS: VANCOMYCIN PEAK 1 REQUEST MISC (13:02)
[2021-06-13 13:09] LABS: Vancomycin Trough 19.2 ug/mL (10-20)
[2021-06-13 13:17] LABS: Vancomycin Peak 44.8 ug/mL (20-40)
[2021-06-13] MEDS: FUROSEMIDE 20 MG/2 ML VIAL IV (14:03)
[2021-06-13] MEDS: LACTULOSE 20 GM/30 ML SOLUTION PO ×2 (14:03→21:16)
--- NOTE | 2021-06-13 17:32 | P.PN_ITS ---
Subjective Subjective Date Patient Seen: 06/13/21 Time Patient Seen: 12:15 Interval history: Feeling improved, reports slightly slurred speech, leg cramping overnight and intermittent tremors. Still feels foggy today. Exam Vital Signs (past 8 hours): - 06/13/21 11:15 06/13/21 12:00 06/13/21 13:49 Temperature 98 F Pulse Rate 112 H 97 H Respiratory Rate 13 Blood Pressure 86/54 L Pulse Oximetry 99 95 06/13/21 16:37 Temperature 98 F Pulse Rate 97 H Respiratory Rate 16 Blood Pressure 91/55 L Pulse Oximetry 97 Oxygen Delivery Method Room Air Oxygen Flow Rate 0 Narrative Exam Narrative: General:? Patient is a well-developed, thin, small framed eld erly female in no distress at this time. HEENT:? Normocephalic, atraumatic, extraocular muscles intact, oral pharynx is clear and mucous membranes are moist.? Neck is supple and symmetric, trachea is midline. Chest: ?equal chest rise bilaterally, no tenderness. Lungs:? Auscultation of all lung fisher show diminished breath sounds bilateral lung bases with minimal crackles. Cardio:? Irregularly irregular, mild tachycardia, without murmur, rubs, or gallops, no carotid bruit, no cardiac pulsations present. Abdomen:? Soft, nontender, mild distention. Musculoskeletal:? Muscle strength and tone are equal within normal limits, no deformity, crepitus, effusions, cyanosis, clubbing or edema present.? Full range of motion intact radial and pedal pulses are normal. Skin:? Warm dry and intact without rashes, ulcerations or petechiae.? Neuro:? Alert and orientated x3, strength is +5/5 in all extremities, sensation to touch intact, no gross deficits noted of cranial nerves. mild asterixis Psych:? Patient has a well-kept appearance, appropriate affect, though slightly slow to respond and initially difficult to arouse. Objective Labs Result Diagrams: 06/13/21 04:25 06/13/21 04:25 Labs: Laboratory Results - last 24 hr 06/12/21 06/12/21 06/12/21 00:53 01:03 09:50 WBC RBC Hgb Hct MCV MCH MCHC RDW Plt Count Neut % (Auto) Lymph % (Auto) [place] % (Auto) Eos % (Auto) Baso % (Auto) Neut # (Auto) Lymph # (Auto) [place] # (Auto) Eos # (Auto) Baso # (Auto) RBC Morphology Polychromasia Hypochromasia Anisocytosis ABG pH 7.40 ABG pCO2 25.0 L ABG pO2 79 L ABG HCO3 15 L ABG Total CO2 16 L ABG O2 Saturation 96 ABG Base Excess -9.0 L FiO2 32 Sodium Potassium Chloride Carbon Dioxide BUN Creatinine Estimated GFR BUN/Creatinine Ratio Glucose Lactate Calcium Magnesium Total Bilirubin AST ALT Alkaline Phosphatase Troponin I NT-Pro-B Natriuret Pep Total Protein Albumin Globulin Albumin/Globulin Ratio Cortisol Response Vancomycin Peak Vancomycin Trough Hepatitis A IgM Ab Negative Hep Bs Antigen Negative Hep B Core IgM Ab Negative Hepatitis C Antibody <0.1 Hep C Ab Signal/Cutoff Comment Blood Type A Positive Antibody Screen Negative 06/12/21 06/13/21 06/13/21 18:00 00:40 04:25 WBC 11.0 RBC 2.88 L Hgb 7.6 L 7.5 L Hct 23.9 L 23.3 L MCV 80.9 MCH 26.1 MCHC 32.3 RDW 21.5 H Plt Count 238 Neut % (Auto) 82.9 H Lymph % (Auto) 8.6 L [place] % (Auto) 8.4 Eos % (Auto) 0.0 L Baso % (Auto) 0.1 Neut # (Auto) 9100 H Lymph # (Auto) 900 L [place] # (Auto) 900 Eos # (Auto) 0 Baso # (Auto) 0 RBC Morphology See below Polychromasia 1+ H Hypochromasia 1+ H Anisocytosis 2+ H ABG pH 7.42 ABG pCO2 20.6 L* ABG pO2 81 ABG HCO3 13 L ABG Total CO2 14 L ABG O2 Saturation 96 ABG Base Excess -11.0 L FiO2 32 Sodium Potassium Chloride Carbon Dioxide BUN Creatinine Estimated GFR BUN/Creatinine Ratio Glucose Lactate Calcium Magnesium Total Bilirubin AST ALT Alkaline Phosphatase Troponin I NT-Pro-B Natriuret Pep Total Protein Albumin Globulin Albumin/Globulin Ratio Cortisol Response Vancomycin Peak Vancomycin Trough Hepatitis A IgM Ab Hep Bs Antigen Hep B Core IgM Ab Hepatitis C Antibody Hep C Ab Signal/Cutoff Blood Type Antibody Screen 06/13/21 06/13/21 06/13/21 04:25 04:25 04:25 WBC RBC Hgb Hct MCV MCH MCHC RDW Plt Count Neut % (Auto) Lymph % (Auto) [place] % (Auto) Eos % (Auto) Baso % (Auto) Neut # (Auto) Lymph # (Auto) [place] # (Auto) Eos # (Auto) Baso # (Auto) RBC Morphology Polychromasia Hypochromasia Anisocytosis ABG pH ABG pCO2 ABG pO2 ABG HCO3 ABG Total CO2 ABG O2 Saturation ABG Base Excess FiO2 Sodium 135 L Potassium 3.6 Chloride 101 Carbon Dioxide 20 L BUN 36 H Creatinine 1.24 H Estimated GFR 42.3 L BUN/Creatinine Ratio 29.0 H Glucose 89 Lactate Calcium 8.7 Magnesium 2.1 Total Bilirubin 0.9 AST 713 H ALT 274 H Alkaline Phosphatase 104 Troponin I 0.031 NT-Pro-B Natriuret Pep 70894 H Total Protein 6.1 L Albumin 3.6 Globulin 2.5 Albumin/Globulin Ratio 1.4 Cortisol Response Vancomycin Peak Vancomycin Trough Hepatitis A IgM Ab Hep Bs Antigen Hep B Core IgM Ab Hepatitis C Antibody Hep C Ab Signal/Cutoff Blood Type Antibody Screen 06/13/21 06/13/21 06/13/21 04:32 07:11 11:09 WBC RBC Hgb Hct MCV MCH MCHC RDW Plt Count Neut % (Auto) Lymph % (Auto) [place] % (Auto) Eos % (Auto) Baso % (Auto) Neut # (Auto) Lymph # (Auto) [place] # (Auto) Eos # (Auto) Baso # (Auto) RBC Morphology Polychromasia Hypochromasia Anisocytosis ABG pH ABG pCO2 ABG pO2 ABG HCO3 ABG Total CO2 ABG O2 Saturation ABG Base Excess FiO2 Sodium Potassium Chloride Carbon Dioxide BUN Creatinine Estimated GFR BUN/Creatinine Ratio Glucose Lactate 2.4 H 1.9 Calcium Magnesium Total Bilirubin AST ALT Alkaline Phosphatase Troponin I NT-Pro-B Natriuret Pep Total Protein Albumin Globulin Albumin/Globulin Ratio Cortisol Response Vancomycin Peak Vancomycin Trough Hepatitis A IgM Ab Hep Bs Antigen Hep B Core IgM Ab Hepatitis C Antibody Hep C Ab Signal/Cutoff Blood Type Antibody Screen 06/13/21 06/13/21 11:09 12:15 WBC RBC Hgb Hct MCV MCH MCHC RDW Plt Count Neut % (Auto) Lymph % (Auto) [place] % (Auto) Eos % (Auto) Baso % (Auto) Neut # (Auto) Lymph # (Auto) [place] # (Auto) Eos # (Auto) Baso # (Auto) RBC Morphology Polychromasia Hypochromasia Anisocytosis ABG pH ABG pCO2 ABG pO2 ABG HCO3 ABG Total CO2 ABG O2 Saturation ABG Base Excess FiO2 Sodium Potassium Chloride Carbon Dioxide BUN Creatinine Estimated GFR BUN/Creatinine Ratio Glucose Lactate Calcium Magnesium Total Bilirubin AST ALT Alkaline Phosphatase Troponin I NT-Pro-B Natriuret Pep Total Protein Albumin Globulin Albumin/Globulin Ratio Cortisol Response Vancomycin Peak 44.8 H* Vancomycin Trough 19.2 Hepatitis A IgM Ab Hep Bs Antigen Hep B Core IgM Ab Hepatitis C Antibody Hep C Ab Signal/Cutoff Blood Type Antibody Screen [facility] Medical History (Updated 06/12/21 @ 03:34 by [facility] Atrial fibrillation Chronic anticoagulation CREST (calcinosis, Raynaud's phenomenon, esophageal dysfunction, sclerodactyly, telangiectasia) GERD (gastroesophageal reflux disease) History of cardioversion History of cyst of breast History of pulmonary embolism Pulmonary edema Pulmonary hypertension Pulmonary hypertension Surgical History (Updated 06/12/21 @ 03:34 [facility] History of oophorectomy History of rectal surgery Family History (Updated 06/12/21 @ 03:36 by [facility] Mother Diabetes mellitus Sister COPD (chronic obstructive pulmonary disease) Ulcerative colitis Social History (Updated 06/12/21 @ 01:34 by Jordan Thomas DO) marital status: household members: spouse lives independently: Yes Smoking Status: Never smoker alcohol intake: former Assessment & Plan Assessment & Plan narrative: Glenda Villegas is a 75-year-old female with a history of atrial fibrillation with RVR with chronic Xeralto anticoagulation, pulmonary hypertension, GERD, and depression admitted for encephalopathy and sepsis of probable intra-abdominal source. 1. Acute metabolic encephalopathy, improving - suspect possibly related to sepsis from underlying abdominal source or possibly hepatic encephalopathy. - trial lactulose - consider MRI if no further improvement. 2. Lactic acidosis, acute, present on admission, improved. -initial lactate 14, patient was bolused with a 1000 cc of fluid vanco and Rocephin repeat lactate was 11.7, was 5.6 on admit and improved with fluids. 3. possible acute diastolic heart failure in the setting of pulmonary hypertension, atrial fibrillation with RVR, and hyperlipidemia, acute on chronic, present on admission -TTE with a normal EF, evidence of volume overload. unable to assess diastolic dysfunction due to afib. -diuresis today limited by hypotension. Given 20 mg IV lasix today. Continue to monitor. -volume overload may be due to hepatic disease rather than cardiac pathology. 4. Acute resrpiatory failure with hypoxia - possibly secondary to volume overload or sepsis. - TTE as noted above - diurese today with 20 mg IV lasix. 5. Elevated amniotranferases, acute, present on admission. New diagnosis of hepatic cirrhosis. -initial liver panel AST 132, ALT 52, alk-phos 169, total bili 1.5 -marcelo yesterday to 800s, stable today. Unclear etiology. New cirrhosis noted on imaging as well. acute rise may be evidence of shock given initial presentation or severe hypoglycemia. -once BP improves continue diuresis. -started on lactulose for possible hepatic encephalopathy. -check hepatitis serologies. Consider advanced workup given history of CREST syndrome for possible PBC however no significant elevations in Alk phos. 6. Hypoglycemia, acute, present on admission -patient's initial glucose 12 in the ED, patient was given 1 amp of D5W upon admit was 112. -etiology unknown patient has no history of diabetes. may be related to liver issues.\ 7. Sepsis secondary to presumed intra-abdominal source. - nothing clear as of this time. small amount of ascites, nothing significant enough for paracentesis on review. Possible SBP. Possible enteritis. Possible cholecystitis. General surgery stated no surgical interventions at this time. 8. Acute anemia - has been stable around 7.5 since initial drop. continue to follow 9. 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 Code status:Full Surrogate decision maker: Dale Bakari Spouse DVT/VTE prophylaxis:pt on Xeralto Disposition:?stable for regular floor. Will need PT/OT when more stable. Either home or SNF. I have utilized all available immediate resources to obtain, update, or review the patient's current medications. I confirmed that the patient's advanced care plan is present, Code status is documented and/or surrogate decision maker is listed in the patient's medical record. Time Spent With Patient Critical Care time: I spent a total of [] minutes of critical care time on this patient's care today; this time is exclusive of procedural time. Quality VTE Deep Vein Thrombosis/Pulmonary Embolism Present on Admission: No
--- NOTE | 2021-06-13 20:12 | PC.NURSE ---
Addendum entered by Anabell Looney R.N. 06/13/21 23:01: Pt continued to sleep through most of shift. Reports that she doesn't feel well, but is unable to be more specific and denies pain. Original Note: Report received, care assumed 1530. On 1LNC, unable to ascertain oxygen saturation. Otherwise VSS. Pt allowed to sleep. Pt. woke around 1800. Drowsy but oriented. Denied pain. Clear liquid diet, poor appetite.
[2021-06-13] MEDS: VANCOMYCIN 500 MG in SODIUM CHLORIDE 0.9% 100 ML IV (22:33)
[2021-06-14] VITALS (15 sets, daily range): BP systolic 87–105; BP diastolic 51–66; PULSE 84–107; RESP 14–20; TEMP 36–37; O2SAT 95–100
[2021-06-14] MEDS: PIPERACILLIN/TAZO 3.375 GM in SODIUM CHLORIDE 0.9% 100 ML 25 ML IV ×3 (01:11→17:09)
[2021-06-14 05:33] LABS: Prothrombin Time 22.3 SECONDS (10.1-12.7)
[2021-06-14 05:35] LABS: Add Manual Diff / Slide Review NO; Basophils Absolute Auto 0 /uL (0-100); Basophils Percent Auto 0.2 % (0-2); Eosinophils Absolute Auto 0 /uL (0-450); Eosinophils Percent Auto 0.4 % (2-4); Hematocrit 24.9 % (36-46); Hemoglobin 7.9 g/dL (12.0-16.0); Lymphocytes Absolute Auto 800 /uL (1100-4500); Lymphocytes Percent Auto 7.3 % (25-40); Mean Corpuscular HGB Conc 31.6 % (30-36); Mean Corpuscular Hemoglobin 25.9 PG (26-34); Monocytes Absolute Auto 800 /uL (0-900); Monocytes Percent Auto 7.1 % (3-14); Neutrophils Absolute Auto 9700 /uL (1500-7000); Platelet Count 251 X10^3/uL (150-400); Red Blood Cell Count 3.04 X10^6/uL (4.0-5.2); Red Cell Distribution Width 21.5 % (11.6-14.8); White Blood Cell Count 11.4 X10^3/uL (4.5-11.0)
[2021-06-14 05:41] LABS: Alanine Aminotransferase 245 IU/L (<35); Albumin 3.4 g/dL (3.5-5.0); Albumin Globulin Ratio 1.4 (1.0-2.8); Alkaline Phosphatase 102 U/L (38-126); Aspartate Aminotransferase 387 IU/L (14-36); BUN Creatinine Ratio 30.7 (6-22); Bilirubin Total 0.8 mg/dL (0.2-1.3); Blood Urea Nitrogen 39 mg/dL (7-17); Calcium 8.5 mg/dL (8.4-10.2); Carbon Dioxide 22 mmol/L (22-32); Chloride 105 mmol/L (98-107); Estimated Glomerular Filt Rate 41.1 mL/min (>60); Globulin 2.5 g/dL (1.7-4.1); Glucose 89 mg/dL (80-110); HEMOLYSIS < 15 (0-50); Potassium 3.1 mmol/L (3.4-5.1); Sodium 138 mmol/L (137-145); Total Protein 5.9 g/dL (6.3-8.2)
[2021-06-14 05:42] LABS: Magnesium 2.1 mg/dL (1.6-2.3)
[2021-06-14 06:13] LABS: Anisocytosis 2+; Hypochromasia 1+; Poikilocytosis 1+; Polychromasia 1+
[2021-06-14 06:36] LABS: Hepatitis B Surface Antigen NEGATIVE s/c (NEGATIVE)
[2021-06-14 06:54] LABS: Hep C Virus Ab w/Reflex Quant NEGATIVE s/c (NEGATIVE)
[2021-06-14] MEDS: DULOXETINE 20 MG CAPSULE PO (08:45)
[2021-06-14] MEDS: PANTOPRAZOLE 40 MG VIAL IV ×2 (08:47→20:38)
[2021-06-14] MEDS: LACTULOSE 20 GM/30 ML SOLUTION PO (08:47)
[2021-06-14] MEDS: FLECAINIDE 100 MG TABLET 50 MG PO ×2 (08:51→20:34)
[2021-06-14] MEDS: SODIUM CHLORIDE 0.9% FLUSH 10 ML IV ×2 (08:52→20:42)
[2021-06-14] MEDS: POTASSIUM CHLORIDE 20 MEQ TAB 40 MEQ PO (10:13)
[2021-06-14] MEDS: VANCOMYCIN 500 MG in SODIUM CHLORIDE 0.9% 100 ML IV ×2 (10:15→22:14)
[2021-06-14] MEDS: ACETAMINOPHEN 325 MG TABLET 650 MG PO ×2 (10:37→22:14)
--- NOTE | 2021-06-14 12:10 | P.PN_ITS ---
Subjective Subjective Date Patient Seen: 06/14/21 Time Patient Seen: 12:11 Interval history: Feels improved, less confused per family at bedside. Improved cramping overnight. Exam Vital Signs (past 8 hours): - 06/14/21 04:45 06/14/21 06:00 06/14/21 07:52 Temperature 97.6 F 97.2 F L Pulse Rate 87 91 H Respiratory Rate 16 14 Blood Pressure 88/57 L 89/60 L Pulse Oximetry 95 95 06/14/21 08:46 06/14/21 11:42 Temperature 96.8 F L Pulse Rate 87 91 H Respiratory Rate 16 Blood Pressure 89/60 L 95/58 L Pulse Oximetry 97 Oxygen Delivery Method Nasal Cannula Oxygen Flow Rate 1 Narrative Exam Narrative: General:? Patient is a well-developed, thin, small framed elderly female in no distress at this time. HEENT:? Normocephalic, atraumatic, extraocular muscles intact, oral pharynx is clear and mucous membranes are moist.? Neck is supple and symmetric, trachea is midline. Chest: ?equal chest rise bilaterally, no tenderness. Lungs:? Auscultation of all lung fisher show diminished breath sounds bilateral lung bases with minimal crackles. Cardio:? Irregularly irregular, mild tachycardia, without murmur, rubs, or gallops, no carotid bruit, no cardiac pulsations present. Abdomen:? Soft, nontender, mild distention with possible ascites. Plan to assess with ultrasound later. Musculoskeletal:? Muscle strength and tone are equal within normal limits, no de formity, crepitus, effusions, cyanosis, clubbing or edema present.? Full range of motion intact radial and pedal pulses are normal. Skin:? Warm dry and intact without rashes, ulcerations or petechiae.? Neuro:? Alert and orientated x3, strength is +5/5 in all extremities, sensation to touch intact, no gross deficits noted of cranial nerves. mild asterixis Psych:? Patient has a well-kept appearance, appropriate affect, though slightly slow to respond and initially difficult to arouse. Objective Labs Result Diagrams: 06/14/21 05:07 06/14/21 05:07 Labs: Laboratory Results - last 24 hr 06/13/21 06/13/21 06/13/21 11:09 11:09 12:15 WBC RBC Hgb Hct MCV MCH MCHC RDW Plt Count Neut % (Auto) Lymph % (Auto) [place] % (Auto) Eos % (Auto) Baso % (Auto) Neut # (Auto) Lymph # (Auto) [place] # (Auto) Eos # (Auto) Baso # (Auto) RBC Morphology Polychromasia Hypochromasia Poikilocytosis Anisocytosis PT INR Sodium Potassium Chloride Carbon Dioxide BUN Creatinine Estimated GFR BUN/Creatinine Ratio Glucose Calcium Magnesium Total Bilirubin AST ALT Alkaline Phosphatase Total Protein Albumin Globulin Albumin/Globulin Ratio Cortisol Response Vancomycin Peak 44.8 H* Vancomycin Trough 19.2 Hep Bs Antigen Hepatitis C Antibody 06/14/21 06/14/21 06/14/21 05:07 05:07 05:07 WBC 11.4 H RBC 3.04 L Hgb 7.9 L Hct 24.9 L MCV 82.0 MCH 25.9 L MCHC 31.6 RDW 21.5 H Plt Count 251 Neut % (Auto) 85.0 H Lymph % (Auto) 7.3 L [place] % (Auto) 7.1 Eos % (Auto) 0.4 L Baso % (Auto) 0.2 Neut # (Auto) 9700 H Lymph # (Auto) 800 L [place] # (Auto) 800 Eos # (Auto) 0 Baso # (Auto) 0 RBC Morphology See below Polychromasia 1+ H Hypochromasia 1+ H Poikilocytosis 1+ H Anisocytosis 2+ H PT 22.3 H D INR 2.0 H Sodium Potassium Chloride Carbon Dioxide BUN Creatinine Estimated GFR BUN/Creatinine Ratio Glucose Calcium Magnesium 2.1 Total Bilirubin AST ALT Alkaline Phosphatase Total Protein Albumin Globulin Albumin/Globulin Ratio Cortisol Response Vancomycin Peak Vancomycin Trough Hep Bs Antigen Hepatitis C Antibody 06/14/21 06/14/21 05:07 05:07 WBC RBC Hgb Hct MCV MCH MCHC RDW Plt Count Neut % (Auto) Lymph % (Auto) [place] % (Auto) Eos % (Auto) Baso % (Auto) Neut # (Auto) Lymph # (Auto) [place] # (Auto) Eos # (Auto) Baso # (Auto) RBC Morphology Polychromasia Hypochromasia Poikilocytosis Anisocytosis PT INR Sodium 138 Potassium 3.1 L Chloride 105 Carbon Dioxide 22 BUN 39 H Creatinine 1.27 H Estimated GFR 41.1 L BUN/Creatinine Ratio 30.7 H Glucose 89 Calcium 8.5 Magnesium Total Bilirubin 0.8 AST 387 H ALT 245 H Alkaline Phosphatase 102 Total Protein 5.9 L Albumin 3.4 L Globulin 2.5 Albumin/Globulin Ratio 1.4 Cortisol Response Vancomycin Peak Vancomycin Trough Hep Bs Antigen Negative Hepatitis C Antibody Negative [facility] Medical History (Updated 06/12/21 @ 03:34 by FRANCISCO J Rodrigez-JOSH) Atrial fibrillation Chronic anticoagulation CREST (calcinosis, Raynaud's phenomenon, esophageal dysfunction, sclerodactyly, telangiectasia) GERD (gastroesophageal reflux disease) History of cardioversion History of cyst of breast History of pulmonary embolism Pulmonary edema Pulmonary hypertension Pulmonary hypertension Surgical History (Updated 06/12/21 @ 03:34 by RADHA Rodrigez) History of oophorectomy History of rectal surgery Family History (Updated 06/12/21 @ 03:36 by FRANCISCO J Rodrigez-JOSH) Mother Diabetes mellitus Sister COPD (chronic obstructive pulmonary disease) Ulcerative colitis Social History (Updated 06/12/21 @ 01:34 by Jordan Thomas DO) marital status: household members: spouse lives independently: Yes Smoking Status: Never smoker alcohol intake: former Assessment & Plan Assessment & Plan narrative: Glenda Villegas is a 75-year-old female with a history of atrial fibrillation with RVR with chronic Xeralto anticoagulation, pulmonary hypertension, GERD, and depression admitted for encephalopathy and sepsis of probable intra-abdominal source. 1. Acute metabolic encephalopathy, improving ?- suspect possibly related to sepsis from underlying abdominal source or possibly hepatic encephalopathy. ?- now with multiple bowel movements after lactulose, will decrease to daily. ?- consider MRI if no further improvement. 2. Lactic acidosis, acute, present on admission, improved. -initial lactate 14, patient was bolused with a 1000 cc of fluid vanco and Rocephin repeat lactate was 11.7, was 5.6 on admit and improved with fluids. 3. possible acute diastolic heart failure in the setting of pulmonary hypertension, atrial fibrillation with RVR, and hyperlipidemia, acute on chronic, present on admission -TTE with a normal EF, evidence of volume overload. unable to assess diastolic dysfunction due to afib. ?-continue light diuresis, may need to increase further if ascites present. can change to oral lasix today. -volume overload may be due to hepatic disease rather than cardiac pathology. 4. Acute resrpiatory failure with hypoxia ?- possibly secondary to volume overload or sepsis. ?- TTE as noted above ?- diurese today with 20 mg IV lasix. - O2 90%-96% while on supplemental oxygen. Currently 97% on 1L. 5. Elevated amniotranferases, acute, present on admission. New diagnosis of hepatic cirrhosis. -initial liver panel AST 132, ALT 52, alk-phos 169, total bili 1.5 -marcelo yesterday to 800s, much improved today. Unclear etiology. New cirrhosis noted on imaging as well. acute rise likely evidence of shock given initial presentation or severe hypoglycemia. -once BP improves continue diuresis. -started on lactulose for possible hepatic encephalopathy. -checked hepatitis serologies which were negative. Consider advanced workup given history of CREST syndrome for possible PBC however no significant elevations in Alk phos so this appears less likely. -recommend outpatient evaluation with GI -will check US at bedside today, perform paracentesis if enough fluid. MELD 16 based on today's labs. 6. Hypoglycemia, acute, present on admission -patient's initial glucose 12 in the ED, patient was given 1 amp of D5W upon admit was 112. -etiology unknown patient has no history of diabetes. likely related to liver issues. 7. Sepsis secondary to presumed intra-abdominal source. ?- nothing clear as of this time. small amount of ascites, nothing significant enough for paracentesis on review initially but will check today. Possible SBP. Possible enteritis. Possible cholecystitis. General surgery stated no surgical interventions at this time. 8. Acute anemia ?- has been stable around 7.5 since initial drop, now up to 7.9. 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 Code status:Full Surrogate decision maker: Dale Villegas Spouse DVT/VTE prophylaxis:pt on Xeralto, on hold currently. Disposition:?stable for regular floor. Will need PT/OT when more stable. Either home or SNF. I have utilized all available immediate resources to obtain, update, or review the patient's current medications. I confirmed that the patient's advanced care plan is present, Code status is documented and/or surrogate decision maker is listed in the patient's medical record. Time Spent With Patient Critical Care time: I spent a total of [] minutes of critical care time on this patient's care today; this time is exclusive of procedural time. Quality VTE Deep Vein Thrombosis/Pulmonary Embolism Present on Admission: No
[2021-06-14] MEDS: FUROSEMIDE 20 MG TABLET PO (13:54)
[2021-06-15] VITALS (15 sets, daily range): BP systolic 99–118; BP diastolic 59–77; PULSE 88–108; RESP 11–19; TEMP 36.3–36.9; O2SAT 92–100
[2021-06-15] MEDS: PIPERACILLIN/TAZO 3.375 GM in SODIUM CHLORIDE 0.9% 100 ML 25 ML IV ×3 (01:30→18:47)
[2021-06-15] MEDS: MELATONIN 3 MG TABLET 6 MG PO (02:16)
[2021-06-15] MEDS: GABAPENTIN 300 MG CAPSULE PO (02:38)
[2021-06-15 05:43] LABS: Add Manual Diff / Slide Review NO; Basophils Absolute Auto 0 /uL (0-100); Basophils Percent Auto 0.2 % (0-2); Eosinophils Absolute Auto 200 /uL (0-450); Eosinophils Percent Auto 1.6 % (2-4); INR 1.5 (0.9-1.3); Lymphocytes Absolute Auto 900 /uL (1100-4500); Mean Corpuscular HGB Conc 31.8 % (30-36); Mean Corpuscular Hemoglobin 26.3 PG (26-34); Mean Corpuscular Volume 82.6 fL (80-100); Monocytes Absolute Auto 900 /uL (0-900); Monocytes Percent Auto 7.9 % (3-14); Neutrophils Absolute Auto 9000 /uL (1500-7000); Neutrophils Percent Auto 82.3 % (50-75); Platelet Count 231 X10^3/uL (150-400); Prothrombin Time 16.8 SECONDS (10.1-12.7); Red Blood Cell Count 3.03 X10^6/uL (4.0-5.2); Red Cell Distribution Width 21.8 % (11.6-14.8); White Blood Cell Count 10.9 X10^3/uL (4.5-11.0)
[2021-06-15 05:52] LABS: Alanine Aminotransferase 206 IU/L (<35); Albumin 3.3 g/dL (3.5-5.0); Albumin Globulin Ratio 1.3 (1.0-2.8); Alkaline Phosphatase 99 U/L (38-126); Aspartate Aminotransferase 250 IU/L (14-36); BUN Creatinine Ratio 29.9 (6-22); Bilirubin Total 0.6 mg/dL (0.2-1.3); Blood Urea Nitrogen 29 mg/dL (7-17); Calcium 8.5 mg/dL (8.4-10.2); Carbon Dioxide 24 mmol/L (22-32); Chloride 106 mmol/L (98-107); Estimated Glomerular Filt Rate 56.1 mL/min (>60); Globulin 2.5 g/dL (1.7-4.1); Glucose 102 mg/dL (80-110); HEMOLYSIS < 15 (0-50); Magnesium 1.8 mg/dL (1.6-2.3); Potassium 2.9 mmol/L (3.4-5.1); Sodium 137 mmol/L (137-145); Total Protein 5.8 g/dL (6.3-8.2)
[2021-06-15] MEDS: POTASSIUM CHLORIDE IN WATER 10 MEQ/100 ML PIGGYBACK 100 MEQ IV (06:32)
[2021-06-15 06:35] LABS: Hepatitis A Ab Total Negative (Negative)
[2021-06-15 06:38] LABS: Hypochromasia 1+; Polychromasia 1+
[2021-06-15 06:39] LABS: Anisocytosis 2+; Poikilocytosis 1+
[2021-06-15] MEDS: POTASSIUM CHLORIDE 20 MEQ TAB 40 MEQ PO (08:36)
[2021-06-15] MEDS: FLECAINIDE 100 MG TABLET 50 MG PO ×2 (08:36→21:09)
[2021-06-15] MEDS: DULOXETINE 20 MG CAPSULE PO (08:37)
[2021-06-15] MEDS: METOPROLOL ER 25 MG TABLET PO (08:37)
[2021-06-15] MEDS: SPIRONOLACTONE 25 MG TABLET PO (08:37)
[2021-06-15] MEDS: FUROSEMIDE 20 MG TABLET PO (08:37)
[2021-06-15] MEDS: PANTOPRAZOLE 40 MG VIAL IV (08:38)
[2021-06-15] MEDS: LACTULOSE 20 GM/30 ML SOLUTION PO (08:38)
[2021-06-15] MEDS: SODIUM CHLORIDE 0.9% FLUSH 10 ML IV ×2 (08:39→21:10)
[2021-06-15 10:02] LABS: Vancomycin Trough 18.2 ug/mL (10-20)
--- NOTE | 2021-06-15 12:33 | P.PN_ITS ---
Subjective Subjective Date Patient Seen: 06/15/21 Time Patient Seen: 12:33 Interval history: Feels weak but improving. Cognition continues to improve. No abdominal pain, shortness of breath, chest pain. Complains of occasional but improving restless negs but continues to improve. Exam Vital Signs (past 8 hours): - 06/15/21 04:37 06/15/21 04:40 06/15/21 07:18 Temperature 97.5 F L 97.3 F L Pulse Rate 99 H 99 H Respiratory Rate 17 18 Blood Pressure 107/69 118/67 Pulse Oximetry 94 94 99 06/15/21 08:37 06/15/21 09:19 Temperature Pulse Rate 99 H Respiratory Rate Blood Pressure 118/67 Pulse Oximetry 98 Oxygen Delivery Method Nasal Cannula Oxygen Flow Rate 1 Narrative Exam Narrative: General:? Patient is a well-developed, thin, small framed elderl y female in no distress at this time. HEENT:? Normocephalic, atraumatic, extraocular muscles intact, oral pharynx is clear and mucous membranes are moist.? Neck is supple and symmetric, trachea is midline. Chest: ?equal chest rise bilaterally, no tenderness. Lungs:? Auscultation of all lung fisher show diminished breath sounds bilateral lung bases with minimal crackles. Cardio:? Irregularly irregular, normal rate, without murmur, rubs, or gallops, no carotid bruit, no cardiac pulsations present. Abdomen:? Soft, nontender, minimal distension much improved. Musculoskeletal:? Muscle strength and tone are equal within normal limits, no deformity, crepitus, effusions, cyanosis, clubbing or edema present.? Full range of motion intact radial and pedal pulses are normal. Skin:? Warm dry and intact without rashes, ulcerations or petechiae.? Neuro:? Alert and orientated x3, strength is +5/5 in all extremities, sensation to touch intact, no gross deficits noted of cranial nerves. no asterixis. Psych:? Patient has a well-kept appearance, appropriate affect, though slightly slow to respond and initially difficult to arouse. Objective Labs Result Diagrams: 06/15/21 05:25 06/15/21 05:25 Labs: Laboratory Results - last 24 hr 06/13/21 06/14/21 06/15/21 00:40 07:00 05:25 WBC 10.9 RBC 3.03 L Hgb 8.0 L Hct 25.0 L MCV 82.6 MCH 26.3 MCHC 31.8 RDW 21.8 H Plt Count 231 Neut % (Auto) 82.3 H Lymph % (Auto) 8.0 L [place] % (Auto) 7.9 Eos % (Auto) 1.6 L Baso % (Auto) 0.2 Neut # (Auto) 9000 H Lymph # (Auto) 900 L [place] # (Auto) 900 Eos # (Auto) 200 Baso # (Auto) 0 RBC Morphology See below Polychromasia 1+ H Hypochromasia 1+ H Poikilocytosis 1+ H Anisocytosis 2+ H PT INR ABG pH 7.42 ABG pCO2 20.6 L* ABG pO2 81 ABG HCO3 13 L ABG Total CO2 14 L ABG O2 Saturation 96 ABG Base Excess -11.0 L FiO2 32 Sodium Potassium Chloride Carbon Dioxide BUN Creatinine Estimated GFR BUN/Creatinine Ratio Glucose Calcium Magnesium Total Bilirubin AST ALT Alkaline Phosphatase Total Protein Albumin Globulin Albumin/Globulin Ratio Vancomycin Trough Hepatitis A Total & IgM Negative 06/15/21 06/15/21 06/15/21 05:25 05:25 09:16 WBC RBC Hgb Hct MCV MCH MCHC RDW Plt Count Neut % (Auto) Lymph % (Auto) [place] % (Auto) Eos % (Auto) Baso % (Auto) Neut # (Auto) Lymph # (Auto) [place] # (Auto) Eos # (Auto) Baso # (Auto) RBC Morphology Polychromasia Hypochromasia Poikilocytosis Anisocytosis PT 16.8 H D INR 1.5 H ABG pH ABG pCO2 ABG pO2 ABG HCO3 ABG Total CO2 ABG O2 Saturation ABG Base Excess FiO2 Sodium 137 Potassium 2.9 L Chloride 106 Carbon Dioxide 24 BUN 29 H Creatinine 0.97 Estimated GFR 56.1 L BUN/Creatinine Ratio 29.9 H Glucose 102 Calcium 8.5 Magnesium 1.8 Total Bilirubin 0.6 AST 250 H ALT 206 H Alkaline Phosphatase 99 Total Protein 5.8 L Albumin 3.3 L Globulin 2.5 Albumin/Globulin Ratio 1.3 Vancomycin Trough 18.2 Hepatitis A Total & IgM [facility] Medical History (Updated 06/12/21 @ 03:34 by FRANCISCO J Rodrigez-JOSH) Atrial fibrillation Chronic anticoagulation CREST (calcinosis, Raynaud's phenomenon, esophageal dysfunction, sclerodactyly, telangiectasia) GERD (gastroesophageal reflux disease) History of cardioversion History of cyst of breast History of pulmonary embolism Pulmonary edema Pulmonary hypertension Pulmonary hypertension Surgical History (Updated 06/12/21 @ 03:34 by Laure Bray [facility]) History of oophorectomy History of rectal surgery Family History (Updated 06/12/21 @ 03:36 by Laure Bray [facility]) Mother Diabetes mellitus Sister COPD (chronic obstructive pulmonary disease) Ulcerative colitis Social History (Updated 06/12/21 @ 01:34 by Jordan Thomas DO) marital status: household members: spouse lives independently: Yes Smoking Status: Never smoker alcohol intake: former Assessment & Plan Assessment & Plan narrative: ?Glenda Villegas is a 75-year-old female with a history of atrial fibrillation with RVR with chronic Xeralto anticoagulation, pulmonary hypertension, GERD, and depression admitted for encephalopathy and sepsis of probable intra-abdominal source. 1. Acute metabolic encephalopathy, improving, suspect hepatic encephalopathy. ?- suspect possibly related to sepsis from underlying abdominal source or possibly hepatic encephalopathy. ?- patient with multiple bowel movements after BID lactulose, improved with daily dosing. - ammonia level <9 on initial labs, however do suspect hepatic encephalopathy given improvement. 2. Lactic acidosis, acute, present on admission, improved. -initial lactate 14, patient was bolused with a 1000 cc of fluid vanco and Rocephin repeat lactate was 11.7, was 5.6 on admit and improved with fluids. 3. possible acute diastolic heart failure in the setting of pulmonary hypertension, atrial fibrillation with RVR, and hyperlipidemia, acute on chronic, present on admission -TTE with a normal EF, evidence of volume overload. unable to assess diastolic dysfunction due to afib. ?-continue light diuresis, may need to increase further if ascites present. can change to oral lasix today. -volume overload may be due to hepatic disease rather than cardiac pathology. -given h/h stability, will trail resuming home xarelto. 4. Acute resrpiatory failure with hypoxia, resolved ?- possibly secondary to volume overload or sepsis. ?- TTE as noted above ?- continue oral furosemide and aldactone for cirrhosis. 5. Elevated amniotranferases, acute, present on admission. New diagnosis of hepatic cirrhosis. -initial liver panel AST 132, ALT 52, alk-phos 169, total bili 1.5 -marcelo to 800s, much improved today. Unclear etiology. New cirrhosis noted on imaging as well. acute rise likely evidence of shock given initial presentation or severe hypoglycemia. -started on lactulose for possible hepatic encephalopathy as noted above. -checked hepatitis serologies which were negative. Consider advanced workup given history of CREST syndrome for possible PBC however no significant elevations in Alk phos so this appears less likely. -recommend outpatient evaluation with GI for possible liver biopsy. -bedside ultrasound with only trace lower abdominal ascites, no fluid for paracentesis. MELD 16 based on today's labs. 6. Hypoglycemia, acute, present on admission, improved -patient's initial glucose 12 in the ED, patient was given 1 amp of D5W upon admit was 112. -etiology unknown patient has no history of diabetes. likely related to liver issues. 7. Sepsis secondary to presumed intra-abdominal source. ?- nothing clear as of this time. small amount of ascites, nothing significant enough for paracentesis and on repeat bedside study yesterday. Possible SBP. Possible enteritis. Possible cholecystitis. General surgery stated no surgical interventions at this time. 8. Acute anemia ?- has been stable around 7.5 since initial drop, now up to 8.0. Continue to mon itor, restarting xarelto. 9. CREST syndrome ?- held hydroxychloroquine and methotrexate over concern for possible infection and hepatic disease. Code status:Full Surrogate decision maker: Dale Villegas Spouse DVT/VTE prophylaxis:pt on Xeralto, on hold currently. Disposition: PT/OT today, discharge either to home or SNF depending on evaluation, possibly tomorrow. I have utilized all available immediate resources to obtain, update, or review the patient's current medications. I confirmed that the patient's advanced care plan is present, Code status is documented and/or surrogate decision maker is listed in the patient's medical record. Time Spent With Patient Critical Care time: I spent a total of [] minutes of critical care time on this patient's care today; this time is exclusive of procedural time. Quality VTE Deep Vein Thrombosis/Pulmonary Embolism Present on Admission: No
[2021-06-15 13:42] LABS: Hepatitis B Core Antibody Negative (Negative)
--- NOTE | 2021-06-15 14:39 | PT.IIE ---
Addendum entered by Sully Merrill R.N. 06/16/21 12:55: Per patient and spouse she feels safe to discharge home with son and to assist into the house. Original Note: Current Diagnoses Sepsis, unspecified organism (06/12/21) Medical History (Last Updated 06/12/21 @ 03:34 by Laure Bray, [facility]) Atrial fibrillation Chronic anticoagulation CREST (calcinosis, Raynaud's phenomenon, esophageal dysfunction, sclerodactyly, telangiectasia) GERD (gastroesophageal reflux disease) History of cardioversion History of cyst of breast History of pulmonary embolism Pulmonary edema Pulmonary hypertension Pulmonary hypertension Physical Therapy Inpatient Evaluation/Re-Eval M1 PT/OT-IP Prior Functional Status Start: 06/15/21 13:58 Freq: NEEDED Status: Active Protocol: Document 06/15/21 13:59 [facility] (Rec: 06/15/21 14:35 [facility] [id number]) Medical Review Prior Functional Status Medical History Reviewed Yes Communication pt able to communicate why she is in the hospital, her is present in the room and reports her confusion is much less now. She reports feeling weakness in her limbs but denies shortness of breath Mobility and Gait prior to hospital admit pt ambulating without a AD for the most part but does use a cane once in awhile Activities of Daily Living and IADL's pt was I with all ADL's Social History Household Members spouse Living Arrangements House Number of Floors (Floors) Two Floors Number of Stairs To Enter/Railing? 14 steps up to the house with railing on the right side, once inside there is 14 steps with a spiral curve at the top . Pt reports she does not have to go upstairs and can go in a separate entrance to avoid inside stairs Home Environment Standard Height Toilet Home Equipment Straight Cane Additional Social History Comment pt lives in [place], [place] M2 PT-IP Current Condition Start: 06/15/21 13:58 Freq: NEEDED Status: Active Protocol: Document 06/15/21 13:59 [facility] (Rec: 06/15/21 14:35 [facility] [id number]) Physical Therapy Current Condition Current Condition Evaluation Date 06/15/21 Treatment Diagnosis chest pain, SOB, distended belly, extremity tremors Onset Date sx started began on 06/10/21 M3 PT-IP Subjective Start: 06/15/21 13:58 Freq: NEEDED Status: Active Protocol: Document 06/15/21 13:59 [facility] (Rec: 06/15/21 14:35 [facility] [id number]) Subjective Physical Therapy Visit Type Type Initial Evaluation Visit Start Time 13:30 Visit Stop Time 14:00 Total Visit Minutes 30 Physical Therapy Visit Comments Patient Comments pt had been sitting up in the chair and nursing had gotten her back to bed recently, she still agrees to do PT. Glenda reports her legs feel weak Therapy Pain Assessment Pain When Pain Assessed At Rest Pain Present Pain Present Denied Pain M4 PT-IP Mobility and Gait Start: 06/15/21 13:58 Freq: NEEDED Status: Active Protocol: Document 06/15/21 13:59 [facility] (Rec: 06/15/21 14:35 [facility] [id number]) PT-Bed Mobility Assessment Rolling Type of Rolling Roll to Right Level of Assist Minimal Assistance Supine to Sit Supine to Sit Minimal Assistance Sit to Supine Sit to Supine Moderate Assistance Scooting Scooting to Edge of Bed Minimal Assistance Scooting Up and Down in Bed Maximum Assistance PT-Transfer Assessment Sit to and From Stand Sit to and from Stand Minimal Assistance Equipment Transfer Assistive Device Gait Belt,Front Wheeled Walker Transfers Transfer Destination Bedside Commode Transfer Technique Stand Step Pivot Transfer Ability Level of Assist Minimal Assistance Comments Mobility Comments pt was min A for transfers out of bed, sit-stand Min A, pt ambulated in room with fww with CGA x 12 feet. She then started having uncontrolled bowel movements and a bedside commode was brought to her. A JUMPBASTING CANVAS BASTER was present to help with cleanup and she was able to have a loose stool in the bedside commode, sit-stand with min A and pt stood for 4-5 minutes for clean up. She notes that with activity her legs felt stronger. Once she was cleaned up she ambulated to the bed, she required mod A to help with her legs back into bed. She is able to perform a full bridge but needed max A x 2 to scoot her up in bed Gait Assessment Gait Gait Assistance Required: Contact Guard Assist Distance (Feet) 12 Able to Maintain Weight Bearing Status Yes During Gait Assistive Devices Assistive Device Gait Belt,Front Wheeled Walker Gait Deviations General Gait Pattern Decreased Stride Length,Flexed Trunk,Step-to Gait Factors Limiting Gait Function Factors Limiting Gait Function Decreased Activity Tolerance, Decreased Strength Comments Gait Comments pt able to maintain balance and ambulated in room 12 feet with CGA and FWW PT-Balance Assessment Sitting Balance and Reactions Static Sitting Balance Ability Good Dynamic Sitting Balance Ability Good Standing Balance and Reactions Static Standing Balance Ability Good Dynamic Standing Balance Ability Good Device Used fww M5 PT-IP Objective Assessments Start: 06/15/21 13:58 Freq: NEEDED Status: Active Protocol: Document 06/15/21 13:59 [facility] (Rec: 06/15/21 14:35 [facility] [id number]) Gross Range of Motion Upper Extremity ROM Assessment Within Functional Limits Lower Extremity ROM Assessment Within Functional Limits Strength Upper Extremity Strength Assessment Within Functional Limits Lower Extremity Strength Assessment Within Functional Limits M6 PT-IP Treatment Start: 06/15/21 13:58 Freq: NEEDED Status: Active Protocol: Document 06/15/21 13:59 [facility] (Rec: 06/15/21 14:36 [facility] [id number]) Physical Therapy Treatment Education Education Provided Safety Other Treatments Other Treatment Performed balance training while standing for brief to be changed and cleaning by JUMPBASTING CANVAS B[employer]ER M7 PT-IP Assessment and Plan Start: 06/15/21 13:58 Freq: NEEDED Status: Active Protocol: Document 06/15/21 13:59 [facility] (Rec: 06/15/21 14:35 [facility] [id number]) PT Summary Assessment and Plan Potential Rehabilitation Potential Good Status of Condition at Evaluation Evolving Summary Impairments Strength,Bed Mobility, Transfers,Gait,Activity Tolerance Assessment Summary 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 She presented to the ED on with SOB, chest pain, distended abdomen, and tremors . Pt has a history of atrial fibrillation and is on anticoagulation. She is scheduled for a outpatient ablation after being on blood thinners for a month. She also has a history of pulmonary hypertension. Pt today is AOx3 and her is present in the room. She is currently on room Air and O2 sats 96 She agreed to PT and stated that her legs feel very weak. She was min A for bed mobility (with the exception of scooting up in bed which was max A) and transfers and CGA for gait in the room. Glenda would benefit from PT for strengthening, gait and transfer training. Need further assessment as to if she is able to DC home with her safely Goals Bed Mobility Goal Contact Guard Assistance Transfer Goal Contact Guard Assistance,Front Wheeled Walker Gait Goal Standby Assistance Gait Distance 50 feet Days to Meet Goals 10 Frequency of Treatment Frequency Of Treatment Once a Day Treatment Plan Physical Therapy Treatment Plan Bed Mobility Training,Transfer Training,Gait Training, Therapeutic Exercise Recommendations To Nursing Amount of Assist Needed 1 Person Assist Discharge Recommendations PT Discharge Recommendations Home vs SNF Equipment Needed for Home Before fww Discharge Transportation Needs at Discharge Private Vehicle
[2021-06-16] VITALS (10 sets, daily range): BP systolic 100–113; BP diastolic 55–84; PULSE 90–106; RESP 16–18; TEMP 36.1–36.3; O2SAT 93–97
[2021-06-16] MEDS: PIPERACILLIN/TAZO 3.375 GM in SODIUM CHLORIDE 0.9% 100 ML 25 ML IV ×2 (02:48→10:14)
[2021-06-16 04:34] LABS: Add Manual Diff / Slide Review NO; Basophils Absolute Auto 0 /uL (0-100); Basophils Percent Auto 0.4 % (0-2); Eosinophils Absolute Auto 300 /uL (0-450); Eosinophils Percent Auto 2.7 % (2-4); Hematocrit 25.9 % (36-46); Hemoglobin 8.1 g/dL (12.0-16.0); INR 1.3 (0.9-1.3); Lymphocytes Absolute Auto 1000 /uL (1100-4500); Lymphocytes Percent Auto 10.1 % (25-40); Mean Corpuscular HGB Conc 31.5 % (30-36); Mean Corpuscular Hemoglobin 26.3 PG (26-34); Mean Corpuscular Volume 83.6 fL (80-100); Monocytes Absolute Auto 800 /uL (0-900); Monocytes Percent Auto 8.3 % (3-14); Neutrophils Absolute Auto 8000 /uL (1500-7000); Neutrophils Percent Auto 78.5 % (50-75); Platelet Count 228 X10^3/uL (150-400); Prothrombin Time 14.3 SECONDS (10.1-12.7); Red Cell Distribution Width 22.1 % (11.6-14.8); White Blood Cell Count 10.2 X10^3/uL (4.5-11.0)
[2021-06-16 04:39] LABS: Alanine Aminotransferase 194 IU/L (<35); Albumin 3.5 g/dL (3.5-5.0); Albumin Globulin Ratio 1.3 (1.0-2.8); Alkaline Phosphatase 86 U/L (38-126); Aspartate Aminotransferase 185 IU/L (14-36); BUN Creatinine Ratio 24.4 (6-22); Bilirubin Total 0.5 mg/dL (0.2-1.3); Blood Urea Nitrogen 22 mg/dL (7-17); Calcium 8.9 mg/dL (8.4-10.2); Carbon Dioxide 25 mmol/L (22-32); Chloride 105 mmol/L (98-107); Estimated Glomerular Filt Rate > 60.0 mL/min (>60); Globulin 2.6 g/dL (1.7-4.1); Glucose 111 mg/dL (80-110); HEMOLYSIS < 15 (0-50); Magnesium 1.6 mg/dL (1.6-2.3); Sodium 139 mmol/L (137-145); Total Protein 6.1 g/dL (6.3-8.2)
[2021-06-16 05:12] LABS: Polychromasia 1+
[2021-06-16 05:13] LABS: Anisocytosis 2+; Hypochromasia 1+
[2021-06-16] MEDS: PANTOPRAZOLE DR 40 MG TABLET PO (07:01)
[2021-06-16] MEDS: POTASSIUM CHLORIDE 20 MEQ TAB 40 MEQ PO (09:13)
[2021-06-16] MEDS: FLECAINIDE 100 MG TABLET 50 MG PO (09:13)
[2021-06-16] MEDS: MAGNESIUM SULFATE 2 GM/50 ML PIGGYBACK IV (09:13)
[2021-06-16] MEDS: DULOXETINE 20 MG CAPSULE PO (09:14)
[2021-06-16] MEDS: SPIRONOLACTONE 25 MG TABLET PO (09:14)
[2021-06-16] MEDS: FUROSEMIDE 20 MG TABLET PO (09:14)
[2021-06-16] MEDS: SODIUM CHLORIDE 0.9% FLUSH 10 ML IV (09:15)
[2021-06-16] MEDS: METOPROLOL ER 25 MG TABLET PO ×2 (10:12→11:28)
--- NOTE | 2021-06-16 10:18 | PM.DS.1 ---
History of Present Illness History of Present Illness Chief complaint: chest pain,SOB,distended belly,extremity tremors, Narrative: Per Laure Bray: Glenda Villegas is a 75-year-old female with a history of atrial fibrillation with RVR with chronic Xeralto anticoagulation, pulmonary hypertension, GERD, and depression was brought into the ED this evening by her spouse for chest discomfort, SOB, distended abdomen and tremors. Is scheduled for an outpatient ablation after she has been on blood thinners for a month. Patient developed scleroderma or on pulmonary hypertension during about of pulmonary emboli related to an ankle fracture she then developed atrial fibrillation and has been cardioverted on previous occasions. Patient had a prolapsed rectal surgery approximately 1 month ago Most of the HPI came from the patient's , as patient was initially confused in the ED, though both patient and spouse were reported to be poor historians. It appears that most of the symptoms she presents with today been occurring/worsening over the past 24 hours. He also states she has not had much to eat or drink over the past 24 hrs. She is taking her medications. Patient complained that she generally just does not feel well. She does have some abdominal pain otherwise cannot pinpoint any specific discomfort. There has been no recent travel. Concerned as to the quality of HPI and ROS due to poor historians. Patient denies cough, URI symptoms, fever, body aches, chills, nausea, vomiting, diarrhea, constipation, hematemesis, urinary symptoms, hematuria, melena, specific weakness, changes in vision, falls, rashes, recent illness injury or trauma. Patient initially presented to the ED confused with a temp of 95?, BP 121/64, HR 91, RR tachypneic 31, O2 saturation 88% on room air. Patient is not on oxygen at home. Patient's labs HGB 10, HCT 32.2. Patient's BUN 20 HC03 9 creatinine 1.09, glucose 12, GFR 49.1, total bilirubin 1.5, AST 132, ALT 52, alk-phos 169, patient's initial lactate 14, troponin 0.021, BNP 22, 200, procalcitonin normal 0.31. In ED patient received fluid bolus of a 1000 cc, D5W 1 amp, a dose of vancomycin and Rocephin, 60 Lasix, and 10 mg of Cardizem. Patient's repeat lactate was 11.7. Tele senior net application developer Dr. Jauregui was consulted regarding evaluation of the case and appropriateness for admit. He recommended that the patient should not be admitted without an immediate General surgery consult and evaluation. Dr. Thomas in the ED consulted Dr. Crawford general surgeon. Dr. Crawford advised that based on the patient's global presentation that the patient was not a candidate for surgical intervention at that time based on complex comorbidities, and that the patient to be admitted to the hospitalist service, and that she would consult if requested. Upon admit to the floor the patient appeared alert & orientated x3, much improved, reports shortness of breath improved but remains on 3 L nasal cannula. Patient denies Chest pain, cough, URI symptoms, fever, body aches, chills, nausea, diarrhea, hematemesis, urinary symptoms, hematuria, melena, specific weakness, changes in vision, falls, rashes, recent illness injury or trauma. The patient reports that she vomited twice yesterday, and suffers from chronic constipation, had previous incontinence of stool but that has since resolved and last BM was yesterday. Admit temp 97.7?, BP is 98/59, HR 91, RR still slightly tachypneic 19, O2 saturation 94% on 3 L nasal cannula. Lactate repeated on admit 5.6, though once on the floor the patient continued to be slightly hypotensive with a map ranging from 60-65 the patient was placed in the ICU. Patient reports that she drinks approximately 3 glasses of wine a day and has done so for approximately 30 years but did stop 1 month ago prior to a to rectal prolapse surgery that she had at [facility]. 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 Patient also notes that she has a history of bilateral pulmonary embolism. Was able to obtain some patient records from [facility] last night which I personally reviewed. Will request further records today. Patient admitted for acute respiratory failure with hypoxia and hypocapnia, lactic acidosis, hypoglycemia, STEPHENIE, encephalopathy, elevated amniotranferases, with CHF exacerbation. Discharge Providers Provider Date of admission: 06/12/21 00:59 Discharge Date: 06/16/21 Primary care physician: Norma Sauer, Consults: 06/12/21 03:17 Consult to Tele-senior net application developer Routine Comment: Consulting Provider: [employer] Reason for consultation: Corporate V[employer]vertising & Online services Has provider been notified: Yes 06/15/21 09:27 Consult to Physical Therapy Evaluate & Treat Comment: Physician Instructions: Evaluate and Treat 06/16/21 13:37 Consult to Home Health Routine Comment: DX: Tremors Reason For Exam: FWW for home use Discharge provider: Rip Colmenares MD Summary Hospital Course Discharge Diagnosis: 1. Acute metabolic encephalopathy 2. Lactic acidosis, severe, resolved 3. Probable acute diastolic heart failure 4. Pulmonary hypertension 5. Atrial fibrillation with RVR 6. Hyperlipidemia 7. Acute hypoxemic respiratory failure 8. 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 Hypoglycemia 10. Possible intra-abdominal infection 11. Anemia 12. CREST syndrome 13. STEPHENIE 14. GERD with GE junction thickening Hospital Course: Ms. Villegas was admitted initially with chest discomfort, shortness of breath, and distended abdomen. She also was noted to be confused. She has poor appetite. She was initially noted to have a lactic acidosis >14. Etiology remained unclear. She did have a CT abdomen which showed patent arteries, she had small bowel wall thickening possibly from an enteritis. She was started on antibiotics. Surgery was consulted and noted there was no surgical indication. Her lactate improved with treatment and eventually resolved. She was noted to have a nodular liver consistent with cirrhosis, possibly from alcohol use. She was also noted to have a probable acute diastolic CHF exacerbation with pulmonary hypertension, as she was found to be volume overloaded. This volume overload may have also been related to her liver disease. She was in afib with RVR which improved with increasing her metoprolol and she was on eliquis. She was diuresed with low dose lasix and spironolactone. She had STEPHENIE but this improved on discharge. She also was found to have hepatitis, but LFTs improving at discharge. She had small amount of ascites in her abdomen, this was too small to tap, unlikely to be infectious. She was given broad coverage for possible abdominal source and discharged with keflex and metronidazole. She was found to have evidence of probable GERD, with GE junction thickening and should have consideration for an outpatient EGD. She felt much improved on day of discharge, and requested discharge home, though SNF was recommended she declined. She has been referred to gastroenterology by her PCP, per patient. Exam Vital Signs (past 8 hours): Oxygen Delivery Method Room Air Oxygen Flow Rate 2 Narrative Exam Narrative: General: no acute distress Lungs: clear bilaterally Cardio: Irregularly irregular Abdomen: Soft, nontender, minimal distension Objective Labs Result Diagrams: 06/16/21 03:45 06/16/21 03:45 Labs: Laboratory Results - last 24 hr 06/14/21 05:07 Hep Bs Antibody Non reactive PFSH Medical History (Updated 06/12/21 @ 03:34 by RADHA Rodrigez) Atrial fibrillation Chronic anticoagulation CREST (calcinosis, Raynaud's phenomenon, esophageal dysfunction, sclerodactyly, telangiectasia) GERD (gastroesophageal reflux disease) History of cardioversion History of cyst of breast History of pulmonary embolism Pulmonary edema Pulmonary hypertension Pulmonary hypertension Surgical History (Updated 06/12/21 @ 03:34 by RADHA Rodrigez) History of oophorectomy History of rectal surgery Family History (Updated 06/12/21 @ 03:36 by RADHA Rodrigez) Mother Diabetes mellitus Sister COPD (chronic obstructive pulmonary disease) Ulcerative colitis Social History (Updated 06/12/21 @ 01:34 by Jordan Thomas DO) marital status: household members: spouse lives independently: Yes Smoking Status: Never smoker alcohol intake: former Discharge Plan Discharge Plan Patient Disposition: Home Health Service Provider Discharge Comment: Ms. Villegas came in to the hospital with shortness of breath, chest discomfort, distended abdomen. She was treated for an infection with antibiotics, and will get 2 more days of antibiotics. She has possible cirrhosis and has been referred to gastroenterology. She felt improved with treatment. She is also discharged with spironolactone to help keep fluid off, she should stop her potassium since she is starting on this medication. She should follow up with her primary doctor within one week. Discharge orders & Medications Prescriptions: New spironolactone 25 mg Tablet 25 mg PO DAILY Qty: 30 RF: 0 metoprolol succinate 25 mg Tablet Extended Release 24 Hr 50 mg PO DAILY Qty: 30 RF: 0 cephalexin 500 mg capsule 500 mg PO QID Qty: 8 RF: 0 metronidazole 500 mg tablet 500 mg PO Q8H Qty: 6 RF: 0 Continued atorvastatin 10 mg tablet 10 mg PO DAILY RF: 0 hydrocodone-acetaminophen 5-325 mg tablet 1 tab PO QID PRN (Reason: Pain (Scale Score 1-3)) RF: 0 baclofen 10 mg tablet 10 mg PO TID PRN (Reason: Pain (Scale Score 1-3)) RF: 0 ferrous sulfate [FeroSul] 325 mg (65 mg iron) tablet 325 mg PO Q OTHER DAY RF: 0 esomeprazole magnesium [Nexium] 40 mg Capsule,Delayed Release(Dr/Ec) 40 mg PO DAILY RF: 0 flecainide 50 mg tablet 50 mg PO BID RF: 0 gabapentin 300 mg capsule 600 mg PO BID RF: 0 folic acid 1 mg Tablet 5 mg PO DAILY RF: 0 furosemide 20 mg tablet 20 mg PO DAILY RF: 0 hydroxychloroquine 200 mg tablet 300 mg PO DAILY RF: 0 methotrexate sodium (PF) 25 mg/mL solution 0.8 mg SUBCUT Q7D RF: 0 tadalafil 20 mg Tablet 20 mg PO DAILY RF: 0 duloxetine 20 mg capsule,delayed release(DR/EC) 20 mg PO DAILY RF: 0 ambrisentan 5 mg tablet 5 mg PO DAILY RF: 0 diclofenac sodium 1 % Gel 2 g TOPICAL QID RF: 0 Xarelto 20 mg tablet 20 mg PO DAILY RF: 0 cyanocobalamin (vitamin B-12) 2,000 mcg Tablet 2,000 mcg PO DAILY RF: 0 Discontinued potassium chloride 10 mEq tablet extended release 20 meq PO BID RF: 0 metoprolol succinate 25 mg tablet extended release 24 hr 12.5 mg PO QPM RF: 0 Follow up/Referrals: Norma Sauer DO [Primary Care Provider] - Diet/Activity/Treatments Diet: Low-sodium Discharge Data Primary Care Provider: Norma Sauer Quality VTE Deep Vein Thrombosis/Pulmonary Embolism Present on Admission: No
--- NOTE | 2021-06-16 11:56 | PT.IPTN ---
Current Diagnoses Sepsis, unspecified organism (06/12/21) Physical Therapy Treatment Note M2 PT-IP Current Condition Start: 06/15/21 13:58 Freq: NEEDED Status: Active Protocol: Document 06/15/21 13:59 [facility] (Rec: 06/15/21 14:35 [facility] [id number]) Physical Therapy Current Condition Current Condition Evaluation Date 06/15/21 Treatment Diagnosis chest pain, SOB, distended belly, extremity tremors Onset Date sx started began on 06/10/21 M3 PT-IP Subjective Start: 06/15/21 13:58 Freq: NEEDED Status: Active Protocol: Document 06/16/21 11:26 [facility] (Rec: 06/16/21 13:30 [facility] [id number]) Subjective Physical Therapy Visit Type Type Treatment Note Visit Start Time 11:26 Visit Stop Time 11:56 Total Visit Minutes 30 Number of LEAD BUSINESS ANALYST Visits 1 Physical Therapy Visit Comments Patient Comments Pt agreeable to workng with therapy, pts present throughout treatment. M4 PT-IP Mobility and Gait Start: 06/15/21 13:58 Freq: NEEDED Status: Active Protocol: Document 06/16/21 11:26 [facility] (Rec: 06/16/21 13:30 [facility] [id number]) PT-Transfer Assessment Sit to and From Stand Sit to and from Stand Contact Guard Assistance,1 Person Assistance,Use of Upper Extremities Equipment Transfer Assistive Device Gait Belt,Front Wheeled Walker Transfers Transfer Destination Chair Transfer Technique Pt ambulated w/ FWW Transfer Ability Level of Assist Contact Guard Assistance,1 Person Assistance,Use of Upper Extremities Comments Mobility Comments Pt in chair upon arrival from therapy w/ in room. Pt stating she is wanting to go home today. When asked about home environment, pt stated she has 14 steps or 5 steps to enter home. Preferred area requires 14 steps. Pt and holly confirm they have FWW at home. Instructed on gaitbelt application. Pt sit< >stand w/ FWW and CGA w/ cues for hand placement. Once standing, pt completed 30 seconds eight shifting and [address] She then ambulated ~10 ft w/ FWW and required 15 seconds standing rest break. She ambulated additional 15ft around room and back to hair CGA to Min A. Pt ambulated slowly w/ decreased foot clearance and stride due to weakness. Min A for stand<>sit for slow descent. Pt then completed 1x10 bilateral ankle pumps, LAQ, and glute sets which she tolerated well. Spoke w/ pt and about pts current level of weakness and how stairs are unsafe. Pt and state they feel safe to complete steps w/ help of pts son. Gave verbal instructions to ascend w/ stronger leg and have chairs placed for seated rest breaks. I do not feel pt is safe for stair training today due to being so quick to fatigue. Provided written instructions for LE strengthening exercises . Gait Assessment Gait Gait Assistance Required: Contact Guard Assist,Minimum Assistance,1 Person Assist Distance (Feet) 25 Able to Maintain Weight Bearing Status Yes During Gait Assistive Devices Assistive Device Gait Belt,Front Wheeled Walker Gait Deviations General Gait Pattern Decreased Stride Length,Flexed Trunk Factors Limiting Gait Function Factors Limiting Gait Function Decreased Activity Tolerance, Decreased Strength Comments Gait Comments Please refer to mobility section for details. PT-Balance Assessment Sitting Balance and Reactions Static Sitting Balance Ability Good Dynamic Sitting Balance Ability Good Standing Balance and Reactions Static Standing Balance Ability Good Dynamic Standing Balance Ability Good Device Used fww M5 PT-IP Objective Assessments Start: 06/15/21 13:58 Freq: NEEDED Status: Active Protocol: Document 06/15/21 13:59 [facility] (Rec: 06/15/21 14:35 [facility] [id number]) Gross Range of Motion Upper Extremity ROM Assessment Within Functional Limits Lower Extremity ROM Assessment Within Functional Limits Strength Upper Extremity Strength Assessment Within Functional Limits Lower Extremity Strength Assessment Within Functional Limits M6 PT-IP Treatment Start: 06/15/21 13:58 Freq: NEEDED Status: Active Protocol: Document 06/16/21 11:26 [facility] (Rec: 06/16/21 13:30 [facility] [id number]) Physical Therapy Treatment Exercises Exercises Ankle Pumps,Gluteal Sets,Quad Sets Education Education Provided Safety Other Treatments Other Treatment Performed Demonstrated gait belt application and approproate assist to pts , provided written LE exercises for pt, discussed outpatient therapy. M7 PT-IP Assessment and Plan Start: 06/15/21 13:58 Freq: NEEDED Status: Active Protocol: Document 06/16/21 11:26 [facility] (Rec: 06/16/21 13:30 [facility] [id number]) PT Summary Assessment and Plan Potential Rehabilitation Potential Good Status of Condition at Evaluation Evolving Summary Impairments Strength,Bed Mobility, Transfers,Gait,Activity Tolerance Assessment Summary Pt continues to require CGA to Min A for transfers and amulation, but has quxk approach to fatgiue and was only able to tolerate ~25 ft ambulation w/ FWW and 1x 15 sec standing rest break. Pt tolerated LE exercises to promote blood flow and strengthening and agreed to complete exercises at home also. This LEAD BUSINESS ANALYST does not feel pt is safe to complete stair training today due to weakness and low tolerance for activity. Demonstrated gait belt application and assist to pts . Discussed stair safety, pt and state they feel confident to complete w/ help of pts son who is an EMT. Pt will benefit from contnued skilled rehab followed by outpatient PT to improve strength, balance and tolerance for activity. Treatment Plan Other Recommendations and Next Treatment 5 steps R rail Focus Recommendations To Nursing Amount of Assist Needed 1 Person Assist Discharge Recommendations PT Discharge Recommendations Home vs SNF Equipment Needed for Home Before PT and confirm they Discharge have FWW at home Transportation Needs at Discharge Private Vehicle
--- NOTE | 2021-06-16 11:59 | PC.NURSE ---
Addendum entered by Sully Merrill R.N. 06/16/21 14:20: Patient received FWW from [employer]. Central line removed catheter intact. Patient voiding after payne catheter removal. She and her verbalize understanding of discharge instructions, medications, follow up recommendations. RN escorted patient via w/ch to private vehicle with after lunch. Original Note: Pt A&Ox3 this a.m. per she is much more coherent with more rationalized thinking. VSS, afebrile on RA. HR afib on telemetry up to 140's this a.m. but improved to 90's-100's with metoprolol. She expresses wanting to discharge home. Magnesium and potassium replacement this a.m. due to loose bowel movements after lactulose. Per MD lactulose held.She has fair po intake this a.m. supportive at bedside. Patient assisted to the chair this a.m. with moderate assist. PT working with patient, she reports she has several steps at home states CGA to min assist with FWW. Continuous monitoring.
--- NOTE | 2021-06-16 13:50 | PT-IP ANOTE ---
Dispensed FWW to pt at 13:50. Pt and initially confirmed having FWW at home, but later stated they do not. Adjusted to correct height and informed of proper use.
[2021-06-17 04:56] LABS: Hepatitis B Surf Ab Qualitativ Non Reactive (.)
== END 2021-06-16 14:00 | disposition home or self-care (01) | DRG 871 ==
LOC: ED 23:44 → AC 06-12 01:00 → ICU 06-12 08:29 → AC 06-16 02:01
PROVIDERS: Internal Medicine; Internal Medicine Critical Care Medicine; Admitting Provider Nurse Practitioner Family; Emergency Provider Emergency Medicine; PCP Student in an Organized Health Care Education/Training Program; Referring Provider Emergency Medicine; Visit Provider Nurse Practitioner Family
DX: A41.9 Sepsis, unspecified organism (principal); J96.01 Acute respiratory failure with hypoxia; G93.41 Metabolic encephalopathy; I50.33 Acute on chronic diastolic (congestive) heart failure; K72.00 Acute and subacute hepatic failure without coma; R65.21 Severe sepsis with septic shock; B17.9 Acute viral hepatitis, unspecified; E87.2 Acidosis; N17.9 Acute kidney failure, unspecified; D64.9 Anemia, unspecified; I27.20 Pulmonary hypertension, unspecified; M34.1 CR(E)ST syndrome; K74.60 Unspecified cirrhosis of liver; Z79.01 Long term (current) use of anticoagulants; I48.91 Unspecified atrial fibrillation; E16.2 Hypoglycemia, unspecified; E78.5 Hyperlipidemia, unspecified; K52.9 Noninfective gastroenteritis and colitis, unspecified; K21.9 Gastro-esophageal reflux disease without esophagitis; F32.A Depression, unspecified; Z20.822 Contact with and (suspected) exposure to COVID-19
CPT/HCPCS: 36415; 36430; 36592; 36600; 71045; 71275; 74174; 74176; 76705; 80053; 80061; 80074; 80076; 80202; 80305; 80329; 81003; 82140; 82150; 82550; 82805; 82962; 82977; 83036; 83605; 83615; 83690; 83735; 83880; 84100; 84145; 84443; 84484; 85014; 85018; 85025; 85610; 85730; 86704; 86706; 86708; 86803; 86850; 86900; 86901; 86927; 87040; 87340; 87633; 87635; 87797; 93005; 93306; 94760; 96361; 96365; 96366; 96367; 96368; 96375; 97110; 97161; 97530; 99285; 99291; C9803; P9016; C9113; G0480; J0696; J1642; J1644; J1940; J2543; J3370; J3475; P9041; Q9967